=== PATIENT | male | born 1950 | race Caucasian/White ===

== ENCOUNTER 2020-01-21 14:21 | Emergency (ER) | payer MEDICARE ==
--- NOTE | 2020-01-21 14:28 | ERPHSYRPT ---
- History of Present Illness Time Seen by Provider: 01/21/20 14:28 Source: patient, family Exam Limitations: no limitations Physician History: This is a 69-year-old white male who presents with left lower rib pain and left upper quadrant abdominal pain after a fall that occurred 3 days ago. Patient's pain is worse than it was 3 days ago. He denies head or neck injury. There is no other pain sites. Patient denies chest pain and denies shortness of breath. Timing/Duration: day(s) (3) Severity: moderate Modifying Factors: Improves With: movement, other (Deep breath) Associated Symptoms: denies symptoms Allergies/Adverse Reactions: No Known Drug Allergies Allergy (Verified 01/21/20 14:38) Home Medications: Levothyroxine Sodium 100 Mcg [Synthroid 100 Mcg] 100 mcg PO DAILY 01/21/20 [History] Loratadine 10 mg PO DAILY 01/21/20 [History] Travel Risk - International Travel Have you traveled outside of the country in past 3 weeks: No - Coronavirus Screening Are you exhibiting any of the following symptoms?: No Close contact with a COVID-19 positive Pt in past 14-21 Days: No - Review of Systems Constitutional: No Symptoms Eyes: No Symptoms Ears, Nose, & Throat: No Symptoms Respiratory: No Symptoms Cardiac: No Symptoms Abdominal/Gastrointestinal: Abdominal Pain (Left upper quadrant) Genitourinary Symptoms: No Symptoms Musculoskeletal: Fall, Other (Left lower ribs) Skin: No Symptoms Neurological: No Symptoms Psychological: No Symptoms Endocrine: No Symptoms Hematologic/Lymphatic: No Symptoms Immunological/Allergic: No Symptoms All Other Systems: Reviewed and Negative - Past Medical History Pertinent Past Medical History: Yes Neurological History: No Pertinent History ENT History: No Pertinent History Cardiac History: No Pertinent History Respiratory History: No Pertinent History Endocrine Medical History: No Pertinent History, Hypothyroidism GI Medical History: No Pertinent History History: No Pertinent History Psycho-Social History: No Pertinent History Male Reproductive Disorders: No Pertinent History - Past Surgical History Past Surgical History: Yes Neuro Surgical History: No Pertinent History Cardiac: No Pertinent History Respiratory: No Pertinent History Gastrointestinal: No Pertinent History Genitourinary: No Pertinent History Musculoskeletal: No Pertinent History Male Surgical History: No Pertinent History - Nursing Vital Signs Nursing Vital Signs: Initial Vital Signs Temperature 98.4 F 01/21/20 14:28 Pulse Rate 85 01/21/20 14:28 Blood Pressure 109/76 01/21/20 14:28 O2 Sat by Pulse Oximetry 93 L 01/21/20 14:28 Pain Scale Pain Intensity 0 - Physical Exam General Appearance: moderate distress, alert, anxiety Eye Exam: PERRL/EOMI, eyes nml inspection Ears, Nose, Throat Exam: normal ENT inspection, moist mucous membranes Neck Exam: normal inspection, non-tender, supple, full range of motion Respiratory Exam: normal breath sounds, lungs clear, airway intact, other (Left lateral lower ribs that are painful), No respiratory distress Cardiovascular Exam: regular rate/rhythm, normal heart sounds, normal peripheral pulses Gastrointestinal/Abdomen Exam: soft, normal bowel sounds, tenderness (Mild left upper quadrant), guarding, No rebound Rectal Exam: not done Back Exam: normal inspection, normal range of motion, No CVA tenderness, No vertebral tenderness Extremity Exam: normal inspection, normal range of motion, pelvis stable Neurologic Exam: alert, oriented x 3, cooperative, 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, normal mood/affect, nml cerebellar function, nml station & gait, sensation nml Skin Exam: normal color, warm, dry Lymphatic Exam: No adenopathy SpO2 Interpretation: normal O2 Delivery: Room Air - Course Nursing assessment & vital signs reviewed: Yes Ordered Tests: Active Orders 24 hr Category Date Time Status ABDOMEN AND PELVIS W/0 CONTRAS [CT] Stat Exams 01/21/20 14:47 Completed RIBS UNILATERAL Stat Exams 01/21/20 14:48 Completed Medication Summary Discontinued Medications Generic Name Dose Route Start Last Admin Trade Name Diallo PRN Reason Stop Dose Admin Hydromorphone HCl 1 mg 01/21/20 14:49 01/21/20 14:53 Hydromorphone 1 Mg/Ml Ampule IM 01/21/20 14:50 1 mg STAT ONE Administration Hydromorphone HCl Confirm 01/21/20 14:52 Hydromorphone 1 Mg/Ml Ampule Administered 01/21/20 14:53 Dose 1 mg .ROUTE .STK-MED ONE Ondansetron HCl 4 mg 01/21/20 14:49 01/21/20 14:54 Zofran Odt 4 Mg PO 01/21/20 14:50 4 mg STAT ONE Administration Ondansetron HCl Confirm 01/21/20 14:52 Zofran Odt 4 Mg Administered 01/21/20 14:53 Dose 4 mg .ROUTE .STK-MED ONE - Progress Progress: improved Progress Note: 01/21/20 16:03 Rib x-rays on the left reveals a left nondisplaced posterior lateral ninth rib fracture. CAT scan of the abdomen and pelvis reveals no splenic injury. There is a right pelvis 9 cm cystic mass present. This was discussed with the patient and spouse. They will follow-up with their primary care physician for management and further delineation of this pelvic mass Counseled pt/family regarding: diagnosis, need for follow-up, rad results - Departure Departure Disposition: Home Clinical Impression: Left rib fracture Condition: Stable Critical Care Time: No Referrals: RUBY GUTIERRES NP [Primary Care Provider] - Additional Instructions: If not allergic and there are no contraindications, add ibuprofen 600 mg orally with food 3 times a day for the next 5 days. Call your primary care doctor tomorrow to make arrangements for a follow-up appointment to discuss the findings on CAT scan that we reviewed regarding your right sided pelvic 9 cm cystic mass. Prescriptions: Oxycodone HCl/Acetaminophen [Percocet 5-325 mg Tablet] 1 each PO Q6H PRN PRN #12 tablet MDD 4 PRN Reason: Pain Cyclobenzaprine HCl 10 mg [Cyclobenzaprine 10 MG] 10 mg PO TID #10 tablet
[2020-01-21] MEDS ORDERED: Hydromorphone 1 mg/ml Ampule IM ONE (14:49)
[2020-01-21] MEDS ORDERED: ZOFRAN ODT 4 MG PO ONE (14:49)
[2020-01-21] MEDS ORDERED: Hydromorphone 1 mg/ml Ampule ONE (14:52)
[2020-01-21] MEDS ORDERED: ZOFRAN ODT 4 MG ONE (14:52)
--- NOTE | 2020-01-21 15:45 | XRAY ---
Indication: Left upper quadrant pain following fall 3 days ago. Multiple contiguous axial images obtained through the abdomen and pelvis without contrast as ordered. Comparison: None Lung bases demonstrates mild bibasilar dependent atelectasis and bibasilar calcified granulomas. Incompletely visualized 4 mm lingula subpleural noncalcified nodule probably granulomatous. No infiltrate or effusion. Heart is not enlarged. Small subcarinal and left infrahilar calcified nodes. Stomach is distended with food/fluid. Noncontrasted stomach and bowel loops appear nonobstructed. Enlarged prostate which chunky calcifications impresses on the base of the bladder. Urinary bladder is markedly distended with moderate circumferential wall thickening possible chronic urinary bladder hypertrophy versus cystitis. Right pelvis demonstrates a 9 cm simple appearing cystic mass immediately posterior lateral to the urinary bladder, possible bladder diverticulum. No free fluid/air. 1.3 cm right upper pole renal cyst, 1 cm left mid renal cyst, and a few tiny calcified hepatic/splenic granulomas. Remaining liver, pancreas, spleen, adrenal glands, kidneys, and ureters appear unremarkable for noncontrast exam. Minimal aortoiliac calcifications without AAA. Osseous structures intact. Small fatty umbilical hernia. Impression: 1. Abnormally distended urinary bladder with circumferential wall thickening. Rule out chronic urinary bladder hypertrophy due to outlet obstruction versus cystitis. 2. Right pelvis 9 cm cystic mass, possible large urinary bladder diverticulum. Contrasted CT exam could confirm. 3. Incompletely visualized lingula noncalcified micronodule. Finding probably granulomatous as there is evidence for old granulomas disease elsewhere. 4. Incidental bilateral renal cysts, enlarged prostate gland, and small fatty umbilical hernia.
--- NOTE | 2020-01-21 15:50 | XRAY ---
Indication: Pain following fall 3 days ago. Comparison: None 2 view left ribs demonstrates nondisplaced posterior lateral 9 rib fracture. Elsewhere mild osteopenia, mild levoscoliosis centered at T2, a few left lung calcified granulomas, and minimal left base subsegmental atelectasis. No other bony, articular, or soft tissue abnormalities.
[2020-01-21 16:13] VITALS: BP 108/63; PULSE 71; O2SAT 94
== END 2020-01-21 16:23 | disposition home or self-care (01) ==
LOC: ED 14:21
DX: S22.32XA Fracture of one rib, left side, initial encounter for closed fracture (principal); W19.XXXS Unspecified fall, sequela
CPT/HCPCS: 71100; 74176; 96372; 99284; J1170; Q0162

== ENCOUNTER 2020-02-16 12:33 | Emergency (ER) | payer MEDICARE ==
--- NOTE | 2020-02-16 12:38 | ERPHSYRPT ---
- History of Present Illness Time Seen by Provider: 02/16/20 12:37 Historian: patient, family Exam Limitations: no limitations Physician History: This is a 69-year-old male whose had a 3-day history of lower abdominal cramping without radiation and diarrhea. The last 24 to 36 hours he has had additionally vomiting on several occasions. Patient and spouse are concerned he may be dehydrated. He is becoming more weak. Patient denies chest pain he denies shortness of breath. He does not have muscle aches and pains. He has no cough. He has no chest pain. Timing/Duration: day(s) (3) Activities at Onset: none Quality: cramping Abdominal Pain Onset Location: RLQ, LLQ Pain Radiation: no radiation Severity of Pain-Max: mild Severity of Pain-Current: mild Modifying Factors: Improves With: vomiting Associated Symptoms: diaphoresis, diarrhea, loss of appetite, nausea, vomiting, weakness, No chest pain, No fever/chills, No shortness of breath Previous symptoms: no prior history Allergies/Adverse Reactions: No Known Drug Allergies Allergy (Verified 02/16/20 12:50) Home Medications: Levothyroxine Sodium 100 Mcg [Synthroid 100 Mcg] 100 mcg PO DAILY 01/21/20 [History] Loratadine 10 mg PO DAILY 01/21/20 [History] Travel Risk - International Travel Have you traveled outside of the country in past 3 weeks: No - Coronavirus Screening Are you exhibiting any of the following symptoms?: No Close contact with a COVID-19 positive Pt in past 14-21 Days: No - Review of Systems Constitutional: Weakness Eyes: No Symptoms Ears, Nose, & Throat: No Symptoms Respiratory: No Symptoms Cardiac: No Symptoms Abdominal/Gastrointestinal: Abdominal Pain, Nausea, Vomiting, Diarrhea Genitourinary Symptoms: No Symptoms Musculoskeletal: No Symptoms Skin: No Symptoms Neurological: No Symptoms Psychological: No Symptoms Endocrine: No Symptoms Hematologic/Lymphatic: No Symptoms Immunological/Allergic: No Symptoms All Other Systems: Reviewed and Negative - Past Medical History Pertinent Past Medical History: Yes Neurological History: No Pertinent History ENT History: No Pertinent History Cardiac History: No Pertinent History Respiratory History: No Pertinent History Endocrine Medical History: No Pertinent History, Hypothyroidism GI Medical History: No Pertinent History History: No Pertinent History Psycho-Social History: No Pertinent History Male Reproductive Disorders: No Pertinent History - Past Surgical History Past Surgical History: Yes Neuro Surgical History: No Pertinent History Cardiac: No Pertinent History Respiratory: No Pertinent History Gastrointestinal: No Pertinent History Genitourinary: No Pertinent History Musculoskeletal: No Pertinent History Male Surgical History: No Pertinent History - Social History Smoking Status: Former smoker Exposure to second hand smoke: No Drug Use: none Patient Lives Alone: No - Nursing Vital Signs Nursing Vital Signs: Initial Vital Signs Temperature 98.0 F 02/16/20 12:41 Pulse Rate 107 H 02/16/20 12:41 Respiratory Rate 22 02/16/20 12:41 Blood Pressure 110/68 02/16/20 12:41 O2 Sat by Pulse Oximetry 95 02/16/20 12:41 Pain Scale Pain Intensity 0 - Physical Exam General Appearance: mild distress, alert, anxiety, thin Eye Exam: PERRL/EOMI, eyes nml inspection Ears, Nose, Throat Exam: normal ENT inspection, dry mucous membranes Neck Exam: normal inspection, non-tender, supple, full range of motion Respiratory Exam: normal breath sounds, lungs clear, airway intact, No chest tenderness, No respiratory distress Cardiovascular Exam: regular rate/rhythm, normal heart sounds, normal peripheral pulses Gastrointestinal/Abdomen Exam: soft, normal bowel sounds, tenderness (Mild bilateral lower quadrants), No guarding, No rebound Rectal Exam: not done Back Exam: normal inspection, normal range of motion, No CVA tenderness, No vertebral tenderness Extremity Exam: normal inspection, normal range of motion, pelvis stable Neurologic Exam: alert, oriented x 3, cooperative, 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, normal mood/affect, nml cerebellar function, nml station & gait, sensation nml Skin Exam: normal color, warm, dry Lymphatic Exam: No adenopathy SpO2 Interpretation: normal O2 Delivery: Room Air - Course Nursing assessment & vital signs reviewed: Yes EKG Interpreted by Me: RATE (96), Sinus Rhythm, NORMAL AXIS, NORMAL INTERVALS, NORMAL QRS Ordered Tests: Active Orders 24 hr Category Date Time Status IV Insertion STAT Care 02/16/20 13:09 Active ABDOMEN AND PELVIS W/0 CONTRAS [CT] Stat Exams 02/16/20 13:22 Taken AMYLASE Stat Lab 02/16/20 13:30 Completed BLOOD CULTURE Stat Lab 02/16/20 14:00 Received CBC W DIFF Stat Lab 02/16/20 13:30 Completed CMP Stat Lab 02/16/20 13:30 Completed LIPASE Stat Lab 02/16/20 13:30 Completed Lactic Acid Stat Lab 02/16/20 13:09 Completed UA W/RFX UR CULTURE Stat Lab 02/16/20 13:55 Completed Medication Summary Generic Name Dose Route Start Last Admin Trade Name Diallo PRN Reason Stop Dose Admin Sodium Chloride 500 mls @ 500 mls/hr 02/16/20 14:54 02/16/20 15:09 Sodium Chloride 0.9% 500 Ml IV 02/16/20 15:53 500 mls/hr .Q1H ONE Administration Discontinued Medications Generic Name Dose Route Start Last Admin Trade Name Diallo PRN Reason Stop Dose Admin Sodium Chloride 1,000 mls @ 999 mls/hr 02/16/20 13:09 02/16/20 13:42 Sodium Chloride 0.9% 1000 Ml IV 02/16/20 14:09 999 mls/hr .Q1H1M STA Administration Sodium Chloride Confirm 02/16/20 13:39 Sodium Chloride 0.9% 1000 Ml Administered 02/16/20 13:40 Dose 1,000 mls @ ud .ROUTE .STK-MED ONE Sodium Chloride Confirm 02/16/20 15:06 Sodium Chloride 0.9% 1000 Ml Administered 02/16/20 15:07 Dose 1,000 mls @ ud .ROUTE .STK-MED ONE Sodium Chloride Confirm 02/16/20 15:09 Sodium Chloride 0.9% 500 Ml Administered 02/16/20 15:10 Dose 500 mls @ ud IV .STK-MED ONE Lab/Rad Data: Laboratory Result Diagrams 02/16/20 13:30 02/16/20 13:30 Laboratory Results 02/16/20 02/16/20 02/16/20 Range/Units 14:00 13:55 13:30 WBC (4.0-10.5) K/mm3 RBC (4.1-5.6) M/mm3 Hgb (12.5-18.0) gm/dl Hct (42-50) % MCV (78-100) fl MCH (26-32) pg MCHC (32-36) g/dl RDW (11.5-14.0) % Plt Count (150-450) K/mm3 MPV (7.5-11.0) fl Gran % (36.0-66.0) % Eos # (Auto) (0-0.5) Absolute Lymphs (auto) (1.0-4.6) Absolute Monos (auto) (0.0-1.3) Lymphocytes % (24.0-44.0) % Monocytes % (0.0-12.0) % Eosinophils % (0.00-5.0) % Basophils % (0.0-0.4) % Absolute Granulocytes (1.4-6.9) Basophils # (0-0.4) Sodium 136 L (137-145) mmol/L Potassium 4.1 (3.5-5.1) mmol/L Chloride 109 H (98-107) mmol/L Carbon Dioxide 18 L (22-30) mmol/L Anion Gap 13.1 (5-15) MEQ/L BUN 29 H (9-20) mg/dL Creatinine 1.57 H (0.66-1.25) mg/dL Estimated GFR 46.8 ML/MIN Glucose 113 H (74-106) mg/dL Lactic Acid (0.4-2.0) Calcium 9.6 (8.4-10.2) mg/dL Total Bilirubin 1.20 (0.2-1.3) mg/dL AST 23 (17-59) U/L ALT 15 (0-50) U/L Alkaline Phosphatase 119 (38-126) U/L Serum Total Protein 9.3 H (6.3-8.2) g/dL Albumin 3.5 (3.5-5.0) g/dL Amylase 72 (30-110) U/L Lipase 56 (23-300) U/L Urine Color YELLOW (YELLOW) Urine Appearance CLEAR (CLEAR) Urine pH 5.0 (5-6) Ur Specific [place] 1.015 (1.005-1.025) Urine Protein NEGATIVE (Negative) Urine Ketones TRACE (NEGATIVE) Urine Blood NEGATIVE (0-5) Solo/ul Urine Nitrite NEGATIVE (NEGATIVE) Urine Bilirubin NEGATIVE (NEGATIVE) Urine Urobilinogen NEGATIVE (0-1) mg/dL Ur Leukocyte Esterase NEGATIVE (NEGATIVE) Urine WBC (Auto) 6-10 (0-5) /HPF Urine RBC (Auto) NONE (0-2) /HPF U Hyaline Cast (Auto) 6-10 (0-2) /LPF U Epithel Cells (Auto) NONE (FEW) /HPF Urine Bacteria (Auto) NONE (NEGATIVE) /HPF Urine Mucus (Auto) SLIGHT (NEGATIVE) /HPF Urine Culture Reflexed NO (NO) Urine Glucose NEGATIVE (NEGATIVE) mg/dL Influenza Type A Ag NEGATIVE (NEGATIVE) Influenza Type B Ag NEGATIVE (NEGATIVE) RSV (PCR) NEGATIVE (Negative) 02/16/20 02/16/20 Range/Units 13:30 13:09 WBC 5.2 (4.0-10.5) K/mm3 RBC 5.04 (4.1-5.6) M/mm3 Hgb 14.7 (12.5-18.0) gm/dl Hct 45.3 (42-50) % MCV 89.9 (78-100) fl MCH 29.2 (26-32) pg MCHC 32.5 (32-36) g/dl RDW 14.9 H (11.5-14.0) % Plt Count 265 (150-450) K/mm3 MPV 10.0 (7.5-11.0) fl Gran % 75.3 H (36.0-66.0) % Eos # (Auto) 0.03 (0-0.5) Absolute Lymphs (auto) 0.67 L (1.0-4.6) Absolute Monos (auto) 0.56 (0.0-1.3) Lymphocytes % 13.0 L (24.0-44.0) % Monocytes % 10.9 (0.0-12.0) % Eosinophils % 0.6 (0.00-5.0) % Basophils % 0.2 (0.0-0.4) % Absolute Granulocytes 3.88 (1.4-6.9) Basophils # 0.01 (0-0.4) Sodium (137-145) mmol/L Potassium (3.5-5.1) mmol/L Chloride (98-107) mmol/L Carbon Dioxide (22-30) mmol/L Anion Gap (5-15) MEQ/L BUN (9-20) mg/dL Creatinine (0.66-1.25) mg/dL Estimated GFR ML/MIN Glucose (74-106) mg/dL Lactic Acid 1.4 (0.4-2.0) Calcium (8.4-10.2) mg/dL Total Bilirubin (0.2-1.3) mg/dL AST (17-59) U/L ALT (0-50) U/L Alkaline Phosphatase (38-126) U/L Serum Total Protein (6.3-8.2) g/dL Albumin (3.5-5.0) g/dL Amylase (30-110) U/L Lipase (23-300) U/L Urine Color (YELLOW) Urine Appearance (CLEAR) Urine pH (5-6) Ur Specific [place] (1.005-1.025) Urine Protein (Negative) Urine Ketones (NEGATIVE) Urine Blood (0-5) Solo/ul Urine Nitrite (NEGATIVE) Urine Bilirubin (NEGATIVE) Urine Urobilinogen (0-1) mg/dL Ur Leukocyte Esterase (NEGATIVE) Urine WBC (Auto) (0-5) /HPF Urine RBC (Auto) (0-2) /HPF U Hyaline Cast (Auto) (0-2) /LPF U Epithel Cells (Auto) (FEW) /HPF Urine Bacteria (Auto) (NEGATIVE) /HPF Urine Mucus (Auto) (NEGATIVE) /HPF Urine Culture Reflexed (NO) Urine Glucose (NEGATIVE) mg/dL Influenza Type A Ag (NEGATIVE) Influenza Type B Ag (NEGATIVE) RSV (PCR) (Negative) - Progress Progress: improved Progress Note: 02/16/20 14:39 CAT scan of the abdomen and pelvis shows an enlarged prostate greater than or equal to 5 cm. There is a large 9.2 cm right posterior urinary bladder d iverticulum. This was discussed with the patient and his spouse and they will be following up with their primary care doctor and a urologist. 02/16/20 15:20 Patient states he is feeling much better. I reviewed the report of the CAT scan with the patient and the spouse. The patient has a scheduled appointment with the urologist within the next 2 weeks 02/16/20 15:22 Counseled pt/family regarding: lab results, diagnosis, need for follow-up, rad results - Departure Departure Disposition: Home Clinical Impression: Vomiting and diarrhea, Enlarged prostate, [place] diverticulum of urinary bladder Condition: Stable Critical Care Time: No Referrals: RUBY GUTIERRES NP [Primary Care Provider] - Additional Instructions: Drink plenty of clear liquids. Keep your appointment with your urologist in 2 weeks. Follow-up with your primary care for persistent symptoms. Return to the emergency department if your symptoms worsen
[2020-02-16] MEDS ORDERED: Sodium Chloride 0.9% 1000 ML 1,000 ML IV STA (13:09)
[2020-02-16] MEDS ORDERED: Sodium Chloride 0.9% 1000 ML 0 ML ONE (13:39)
[2020-02-16 13:50] LABS: Absolute Neutrophil Ct (ANC) 3.88 (1.4-6.9); BASOPHIL % 0.2 % (0.0-0.4); Basophil (Absolute #) 0.01 (0-0.4); Eosinophil % 0.6 % (0.00-5.0); Eosinophil (Absolute #) 0.03 (0-0.5); Hematocrit 45.3 % (42-50); Hemoglobin 14.7 gm/dl (12.5-18.0); Lymphocyte (Absolute #) 0.67 (1.0-4.6); Mean Cell Volume 89.9 fl (78-100); Mean Corpuscular Hemoglobin 29.2 pg (26-32); Mean Corpuscular Hgb Concent. 32.5 g/dl (32-36); Monocyte (Absolute #) 0.56 (0.0-1.3); Monocytes % 10.9 % (0.0-12.0); Neutrophil % 75.3 % (36.0-66.0); Platelet Count 265 K/mm3 (150-450); Red Blood Count 5.04 M/mm3 (4.1-5.6); Red Cell Distribution Width 14.9 % (11.5-14.0); White Blood Count 5.2 K/mm3 (4.0-10.5)
[2020-02-16 14:02] LABS: ALBUMIN 3.5 g/dL (3.5-5.0); ANION GAP 13.1 MEQ/L (5-15); BILIRUBIN,TOTAL 1.2 mg/dL (0.2-1.3); Calcium 9.6 mg/dL (8.4-10.2); Creatinine 1 1.57 mg/dL (0.66-1.25); Potassium 4.1 mmol/L (3.5-5.1); Total Protein 9.3 g/dL (6.3-8.2)
[2020-02-16 14:21] LABS: Appearance CLEAR (CLEAR); Bilirubin NEGATIVE (NEGATIVE); Blood NEGATIVE Ery/ul (0-5); Glucose NEGATIVE (NEGATIVE); Ketones TRACE (NEGATIVE); Leukocyte Esterase NEGATIVE (NEGATIVE); Mucus SLIGHT /HPF (NEGATIVE); Nitrite NEGATIVE (NEGATIVE); Protein,Urine Dip NEGATIVE (Negative); Specific Gravity 1.015 (1.005-1.025); Urobilinogen NEGATIVE mg/dL (0-1)
[2020-02-16 14:33] LABS: INFLUENZA A NEGATIVE (NEGATIVE); INFLUENZA B NEGATIVE (NEGATIVE); RESPIRATORY SYNCTIAL VIRUS NEGATIVE (Negative)
[2020-02-16] MEDS ORDERED: Sodium Chloride 0.9% 500 ML 500 ML IV ONE ×2 (14:54→15:09)
[2020-02-16] MEDS ORDERED: Sodium Chloride 0.9% 1000 ML 1,000 ML ONE (15:06)
[2020-02-16 15:12] VITALS: BP 117/73; PULSE 89; O2SAT 94
--- NOTE | 2020-02-16 22:08 | XRAY ---
Indication: Diarrhea. Multiple contiguous axial images obtained through the abdomen and pelvis without contrast as ordered. Comparison: January 21, 2020. Lung bases again demonstrates bibasilar dependent atelectasis with new tiny bibasilar effusions. Heart is not enlarged. Noncontrasted stomach and bowel loops remaining nonobstructed. Mild scattered colonic diverticulosis without diverticulitis. No free fluid/air. Urinary bladder remains markedly distended with circumferential wall thickening again chronic urinary bladder hypertrophy versus cystitis. Stable 9 cm right urinary bladder diverticulum, bilateral renal cysts, hepatic/splenic calcified granulomas, and enlarged prostate gland. Remaining liver, gallbladder, pancreas, spleen, adrenal glands, kidneys, and ureters appear unremarkable for noncontrasted exam. Stable minimal aortoiliac calcifications without AAA. Impression: 1. Colonic diverticulosis without diverticulitis. 2. Continued abnormally distended urinary bladder with circumferential wall thickening. Again rule out chronic urinary bladder hypertrophy due to outlet obstruction versus cystitis. Stable urinary bladder diverticulum. 3. Stable bilateral renal cysts, enlarged prostate gland, and old granulomatous disease. 4. New tiny bibasilar effusions without cardiomegaly. Comment: Preliminary interpretation was made by [facility]. No critical discrepancy.
== END 2020-02-16 15:54 | disposition home or self-care (01) ==
LOC: ED 12:33
DX: R19.7 Diarrhea, unspecified (principal); N40.0 Benign prostatic hyperplasia without lower urinary tract symptoms; N32.3 Diverticulum of bladder
CPT/HCPCS: 36000; 36415; 74176; 80053; 81001; 82150; 83605; 83690; 85025; 87040; 87631; 96360; 96361; 99284

== ENCOUNTER 2021-01-10 15:33 | Emergency (ER) | payer MEDICARE ==
[2021-01-10] MEDS ORDERED: CARDIZEM DRIP 100 MG/100 ML D5W 100 ML IV PRN (15:57)
[2021-01-10] MEDS ORDERED: Adenocard IV 6 MG/2 ML IV ONE ×2 (15:57→16:03)
[2021-01-10] MEDS ORDERED: BABY ASPIRIN 81 MG CHEW PO ONE (15:57)
[2021-01-10] MEDS ORDERED: Cardizem IV 50 MG/10 ML IV ONE ×2 (15:57→16:17)
--- NOTE | 2021-01-10 15:57 | ERPHSYRPT ---
- History of Present Illness Time Seen by Provider: 01/10/21 15:53 Source: patient, family Exam Limitations: no limitations Patient Subjective Stated Complaint: vomiting since last night Triage Nursing Assessment: Pt brought to the ER by his , tachycardic, hypotensive, afib, tachypnea, N&V, no hx of heart problems, denies pain, irregular pulses, skin n/w/d Physician History: pt has been having vomiting , and is found to have rapid rate on EKG 150s with BP in 70s to 90s. No CP , No Abd pain. abd nontender chest clear Timing/Duration: today Activities at Onset: none Chest Pain Radiation: no radiation Severity of Pain-Max: none Severity of Pain-Current: none Modifying Factors: Improves With: nothing Nitro Today/Relief: no nitro taken today Aspirin Treatment Today: 81 mg x 4, provided by ED Associated Symptoms: vomiting Prior Chest Pain/Cardiac Workup: no prior chest pain Allergies/Adverse Reactions: No Known Drug Allergies Allergy (Verified 01/10/21 15:50) Home Medications: Levothyroxine Sodium 100 Mcg [Synthroid 100 Mcg] 50 mcg PO DAILY 01/21/20 [History] Loratadine 10 mg PO DAILY 01/21/20 [History] Calcium Carbonate/Vitamin D3 [Calcium 600-Vit D3 400 Tablet] 1 tab PO DAILY 01/10/21 [History] Ibandronate Sodium [Boniva] 150 mg PO UD 01/10/21 [History] Hx Tetanus, Diphtheria Vaccination/Date Given: Yes Hx Influenza Vaccination/Date Given: Yes Hx Pneumococcal Vaccination/Date Given: No Travel Risk - International Travel Have you traveled outside of the country in past 3 weeks: No - Coronavirus Screening Are you exhibiting any of the following symptoms?: No Close contact with a COVID-19 positive Pt in past 14-21 Days: No - Vaccine Status Have you recieved a Covid-19 vaccination: No - Review of Systems Constitutional: No Fever, No Chills Eyes: No Symptoms Ears, Nose, & Throat: No Symptoms Respiratory: No Cough, No Dyspnea Cardiac: No Chest Pain, No Edema, No Syncope Abdominal/Gastrointestinal: No Abdominal Pain, No Nausea, No Vomiting, No Diarrhea Genitourinary Symptoms: No Dysuria Musculoskeletal: No Back Pain, No Neck Pain Skin: No Rash Neurological: No Dizziness, No Focal Weakness, No Sensory Changes Psychological: No Symptoms Endocrine: No Symptoms Hematologic/Lymphatic: No Symptoms Immunological/Allergic: No Symptoms All Other Systems: Reviewed and Negative - Past Medical History Pertinent Past Medical History: Yes Neurological History: No Pertinent History ENT History: No Pertinent History Cardiac History: No Pertinent History Respiratory History: No Pertinent History Endocrine Medical History: No Pertinent History, Hypothyroidism GI Medical History: No Pertinent History History: No Pertinent History Psycho-Social History: No Pertinent History Male Reproductive Disorders: No Pertinent History Other Medical History: seasonal allergies - Past Surgical History Past Surgical History: Yes Neuro Surgical History: No Pertinent History Cardiac: No Pertinent History Respiratory: No Pertinent History Gastrointestinal: No Pertinent History Genitourinary: No Pertinent History Musculoskeletal: No Pertinent History Male Surgical History: No Pertinent History Other Surgical History: hernia x 3, hemorriods - Social History Smoking Status: Former smoker Exposure to second hand smoke: No Drug Use: none Patient Lives Alone: No - Nursing Vital Signs Nursing Vital Signs: Initial Vital Signs Temperature 97.5 F 01/10/21 15:38 Pulse Rate 146 H 01/10/21 15:38 Respiratory Rate 30 H 01/10/21 15:38 Blood Pressure 102/72 01/10/21 15:38 O2 Sat by Pulse Oximetry 94 L 01/10/21 15:38 Pain Scale Pain Intensity 3 - Physical Exam General Appearance: no apparent distress, alert Eye Exam: PERRL/EOMI, eyes nml inspection Ears, Nose, Throat Exam: normal ENT inspection, moist mucous membranes Neck Exam: normal inspection, non-tender, supple Respiratory Exam: normal breath sounds, lungs clear, No respiratory distress Cardiovascular Exam: normal heart sounds, tachycardia, No edema Gastrointestinal/Abdomen Exam: soft, No tenderness, No mass Back Exam: normal inspection, No CVA tenderness, No vertebral tenderness Extremity Exam: normal inspection, normal range of motion Neurologic Exam: alert, oriented x 3, cooperative, normal mood/affect, nml cerebellar function, sensation nml, No motor deficits Skin Exam: normal color, warm, dry Lymphatic Exam: No adenopathy SpO2: 94 - Course Nursing assessment & vital signs reviewed: Yes EKG Interpreted by Me: SVT, Non-specific ST Changes - Radiology Exams Chest X-ray Interpretation: Reviewed by me, Other (mild congestion and atelectasis L) Ordered Tests: Active Orders 24 hr Category Date Time Status Hospital Superintendent STAT Care 01/10/21 15:58 Active EKG-ER Only STAT Care 01/10/21 15:57 Active IV Insertion STAT Care 01/10/21 15:57 Active Pulse Oximetry (ED) STAT Care 01/10/21 15:57 Active CHEST 1 VIEW (PORTABLE) Stat Exams 01/10/21 15:58 Completed CBC W DIFF Stat Lab 01/10/21 16:00 Completed CMP Stat Lab 01/10/21 16:00 Completed D-DIMER QUANTITATIVE Stat Lab 01/10/21 16:15 Completed Lactic Acid Stat Lab 01/10/21 15:57 Completed NT PRO BNP Stat Lab 01/10/21 16:00 Completed T4 (Thyroxine) Stat Lab 01/10/21 16:00 Completed TROPONIN Q3H Lab 01/10/21 16:00 Completed TROPONIN Q3H Lab 01/10/21 19:00 Received TROPONIN Q3H Lab 01/10/21 22:00 Ordered TROPONIN Q3H Lab 01/11/21 01:00 Ordered TROPONIN Q3H Lab 01/11/21 04:00 Ordered TSH, 3RD Generation Stat Lab 01/10/21 16:00 Completed Medication Summary Generic Name Dose Route Start Last Admin Trade Name Freq PRN Reason Stop Dose Admin Sodium Chloride 1,000 mls @ 100 mls/hr 01/10/21 16:00 01/10/21 16:45 Sodium Chloride 0.9% 1000 Ml IV 02/09/21 15:59 100 mls/hr .Q10H GINA Administration Diltiazem HCl 100 mls @ 5 mls/hr 01/10/21 15:57 01/10/21 16:09 Cardizem Drip 100 Mg/100 Ml D5w IV 02/09/21 15:56 5 mg/hr .Q20H PRN 5 mls/hr HEART RATE/ A-FIB Administration Protocol 5 MG/HR Discontinued Medications Generic Name Dose Route Start Last Admin Trade Name Freq PRN Reason Stop Dose Admin Adenosine 6 mg 01/10/21 15:57 01/10/21 16:04 Adenocard Iv 6 Mg/2 Ml IV 01/10/21 15:58 6 mg STAT ONE Administration Adenosine Confirm 01/10/21 16:03 Adenocard Iv 6 Mg/2 Ml Administered 01/10/21 16:04 Dose 6 mg IV .STK-MED ONE Aspirin 324 mg 01/10/21 15:57 01/10/21 17:00 Baby Aspirin 81 Mg Chew PO 01/10/21 15:58 324 mg STAT ONE Administration Aspirin Confirm 01/10/21 16:17 Baby Aspirin 81 Mg Chew Administered 01/10/21 16:18 Dose 324 mg .ROUTE .STK-MED ONE Diltiazem HCl 10 mg 01/10/21 15:57 01/10/21 16:22 Cardizem Iv 50 Mg/10 Ml IV 01/10/21 15:58 50 mg STAT ONE Administration Diltiazem HCl Confirm 01/10/21 16:17 Cardizem Iv 50 Mg/10 Ml Administered 01/10/21 16:18 Dose 50 mg IV .STK-MED ONE Lab/Rad Data: Laboratory Result Diagrams 01/10/21 16:00 01/10/21 16:00 Laboratory Results 01/10/21 01/10/21 01/10/21 Range/Units 16:15 16:00 16:00 WBC (4.0-10.5) K/mm3 RBC (4.1-5.6) M/mm3 Hgb (12.5-18.0) gm/dl Hct (42-50) % MCV (78-100) fl MCH (26-32) pg MCHC (32-36) g/dl RDW (11.5-14.0) % Plt Count (150-450) K/mm3 MPV (7.5-11.0) fl Gran % (36.0-66.0) % Eos # (Auto) (0-0.5) Absolute Lymphs (auto) (1.0-4.6) Absolute Monos (auto) (0.0-1.3) Lymphocytes % (24.0-44.0) % Monocytes % (0.0-12.0) % Eosinophils % (0.00-5.0) % Basophils % (0.0-0.4) % Absolute Granulocytes (1.4-6.9) Basophils # (0-0.4) D-Dimer 395 (215-500) ng/mL Sodium 139 (137-145) mmol/L Potassium 4.2 (3.5-5.1) mmol/L Chloride 109 H (98-107) mmol/L Carbon Dioxide 18 L (22-30) mmol/L Anion Gap 16.0 H (5-15) MEQ/L BUN 30 H (9-20) mg/dL Creatinine 1.76 H (0.66-1.25) mg/dL Estimated GFR 40.9 ML/MIN Glucose 113 H (74-106) mg/dL Lactic Acid (0.4-2.0) Calcium 10.1 (8.4-10.2) mg/dL Total Bilirubin 0.50 (0.2-1.3) mg/dL AST 24 (17-59) U/L ALT 16 (0-50) U/L Alkaline Phosphatase 104 (38-126) U/L Troponin I 0.042 H* (0.000-0.034) ng/mL NT-Pro-B Natriuret Pep 3520 H (0-900) pg/mL Serum Total Protein 9.5 H (6.3-8.2) g/dL Albumin 3.7 (3.5-5.0) g/dL Thyroxine (T4) 7.74 (5.53-10.96) ug/dL TSH 3rd Generation 1.140 (0.47-4.68) mIU/L 01/10/21 01/10/21 Range/Units 16:00 15:57 WBC 7.4 (4.0-10.5) K/mm3 RBC 5.13 (4.1-5.6) M/mm3 Hgb 15.1 (12.5-18.0) gm/dl Hct 46.2 (42-50) % MCV 90.1 (78-100) fl MCH 29.4 (26-32) pg MCHC 32.7 (32-36) g/dl RDW 14.2 H (11.5-14.0) % Plt Count 289 (150-450) K/mm3 MPV 10.0 (7.5-11.0) fl Gran % 77.0 H (36.0-66.0) % Eos # (Auto) 0.07 (0-0.5) Absolute Lymphs (auto) 0.93 L (1.0-4.6) Absolute Monos (auto) 0.68 (0.0-1.3) Lymphocytes % 12.6 L (24.0-44.0) % Monocytes % 9.2 (0.0-12.0) % Eosinophils % 0.9 (0.00-5.0) % Basophils % 0.3 (0.0-0.4) % Absolute Granulocytes 5.70 (1.4-6.9) Basophils # 0.02 (0-0.4) D-Dimer (215-500) ng/mL Sodium (137-145) mmol/L Potassium (3.5-5.1) mmol/L Chloride (98-107) mmol/L Carbon Dioxide (22-30) mmol/L Anion Gap (5-15) MEQ/L BUN (9-20) mg/dL Creatinine (0.66-1.25) mg/dL Estimated GFR ML/MIN Glucose (74-106) mg/dL Lactic Acid 1.5 (0.4-2.0) Calcium (8.4-10.2) mg/dL Total Bilirubin (0.2-1.3) mg/dL AST (17-59) U/L ALT (0-50) U/L Alkaline Phosphatase (38-126) U/L Troponin I (0.000-0.034) ng/mL NT-Pro-B Natriuret Pep (0-900) pg/mL Serum Total Protein (6.3-8.2) g/dL Albumin (3.5-5.0) g/dL Thyroxine (T4) (5.53-10.96) ug/dL TSH 3rd Generation (0.47-4.68) mIU/L - Progress Progress: improved, re-examined Air Movement: good Progress Note: 01/10/21 16:25 pt responded briefly to adenosine and confirmed afib. ordered 10 mg cardizem , but nurse inadvert gave 50 - pt advised of medical error, and incident report created. However his rate is well controlled but still some hypotension to 70s as befor e, asympt and feels better - giving bolus NS for BP. 01/10/21 16:49 01/10/21 19:39 discussed with [facility] ER and family and all agree best to transfer to for furhter w/u of his new onset afib. and elevated trop Blood Culture(s) Obtained: No Antibiotics given: No Discussed with : Other ([facility] ER ) Will see patient in: ED Counseled pt/family regarding: lab results, diagnosis, need for follow-up, rad results - Departure Departure Disposition: Transfer Clinical Impression: afib Condition: Good Critical Care Time: Yes Critical Care Time(excluding separately billable procedures): Critical 30-74 mins (crit care for hypotension and rapid vent response to bring under control) Referrals: RUBY GUTIERRES, EMEKA [Primary Care Provider] -
[2021-01-10] MEDS ORDERED: Sodium Chloride 0.9% 1000 ML 1,000 ML IV SCH (16:00)
[2021-01-10] MEDS ORDERED: CARDIZEM DRIP 100 MG/100 ML D5W 100 ML IV ONE (16:09)
[2021-01-10 16:12] LABS: BASOPHIL % 0.3 % (0.0-0.4); Basophil (Absolute #) 0.02 (0-0.4); Eosinophil % 0.9 % (0.00-5.0); Eosinophil (Absolute #) 0.07 (0-0.5); Hematocrit 46.2 % (42-50); Hemoglobin 15.1 gm/dl (12.5-18.0); Lymphocyte (Absolute #) 0.93 (1.0-4.6); Lymphocytes % 12.6 % (24.0-44.0); Mean Cell Volume 90.1 fl (78-100); Mean Corpuscular Hemoglobin 29.4 pg (26-32); Mean Corpuscular Hgb Concent. 32.7 g/dl (32-36); Monocyte (Absolute #) 0.68 (0.0-1.3); Monocytes % 9.2 % (0.0-12.0); Platelet Count 289 K/mm3 (150-450); Red Blood Count 5.13 M/mm3 (4.1-5.6); Red Cell Distribution Width 14.2 % (11.5-14.0); White Blood Count 7.4 K/mm3 (4.0-10.5)
[2021-01-10] MEDS ORDERED: Sodium Chloride 0.9% 1000 ML 1,000 ML ONE (16:17)
[2021-01-10] MEDS ORDERED: BABY ASPIRIN 81 MG CHEW ONE (16:17)
[2021-01-10 17:00] LABS: ALBUMIN 3.7 g/dL (3.5-5.0); BILIRUBIN,TOTAL 0.5 mg/dL (0.2-1.3); Calcium 10.1 mg/dL (8.4-10.2); Creatinine 1 1.76 mg/dL (0.66-1.25); EST GLOMERULAR FILTRATION RATE 40.9 ML/MIN; Potassium 4.2 mmol/L (3.5-5.1); T4 (Thyroxine) 7.74 ug/dL (5.53-10.96); TSH, 3RD Generation 1.14 mIU/L (0.47-4.68); Total Protein 9.5 g/dL (6.3-8.2)
--- NOTE | 2021-01-10 19:32 | XRAY ---
Indication: Tachycardia. Comparison: None Portable chest demonstrates mild left base infiltrate versus atelectasis with tiny effusion partially obscured due to overlying monitoring leads. Incidental tiny left base calcified granuloma. Remaining heart, right lung, and bony thorax unremarkable.
[2021-01-10 19:43] VITALS: BP 98/67; PULSE 98; O2SAT 95
== END 2021-01-10 20:15 | disposition short-term general hospital (02) ==
LOC: ED 15:33
DX: I48.91 Unspecified atrial fibrillation (principal); R11.10 Vomiting, unspecified; I95.9 Hypotension, unspecified; Z79.899 Other long term (current) drug therapy; E03.9 Hypothyroidism, unspecified
CPT/HCPCS: 36000; 36415; 71045; 80053; 83605; 83880; 84436; 84443; 84484; 85025; 85379; 93005; 93041; 94760; 96365; 96366; 96374; 96375; 99285; 99291; J0153; A9270-GY

== ENCOUNTER 2021-11-15 07:39 | Emergency (ER) | payer MEDICARE ==
--- NOTE | 2021-11-15 08:12 | ERPHSYRPT ---
- History of Present Illness Time Seen by Provider: 11/15/21 07:55 Source: patient, family Exam Limitations: no limitations Patient Subjective Stated Complaint: intermittent vomiting, dizziness, diarrhea x 3 days. missed BP med thurs and fri due to being out. Triage Nursing Assessment: . Physician History: This is a 71-year-old white male has a history of hypertension hypothyroidism and presents with few day history of just feeling "puny" which is described as weakness. He has had a couple bouts of vomiting and diarrhea. He has not had a fever. He denies headache. He denies chest pain. He denies shortness of breath. He has no abdominal pain. There are no other individuals in the family with similar symptoms. Patient was out of his Cardizem medication for blood pressure and heart rate control. He had just filled it a few days ago. He has not taking his blood pressure and heart rate medication today. He is on Eliquis. He has a history of atrial fibrillation. Patient and spouse feel he may be dehydrated. Timing/Duration: day(s) Severity: mild Associated Symptoms: nausea, vomiting, weakness, No abdominal pain, No shortness of breath, No chest pain Allergies/Adverse Reactions: No Known Drug Allergies Allergy (Verified 11/15/21 07:58) Home Medications: Levothyroxine Sodium 100 Mcg [Synthroid 100 Mcg] 50 mcg PO DAILY 01/21/20 [History] Loratadine 10 mg PO DAILY 01/21/20 [History] Calcium Carbonate/Vitamin D3 [Calcium 600-Vit D3 400 Tablet] 1 tab PO DAILY 01/10/21 [History] Ibandronate Sodium [Boniva] 150 mg PO UD 01/10/21 [History] Apixaban [Eliquis 5 mg Tablet] 5 mg PO BID 11/15/21 [History] Benzonatate 100 mg PO TID PRN 11/15/21 [History] Diltiazem HCl [Cardizem Cd] 120 mg PO DAILY 11/15/21 [History] Levothyroxine Sodium [Euthyrox] 25 mcg PO DAILY 11/15/21 [History] Hx Tetanus, Diphtheria Vaccination/Date Given: Yes Hx Influenza Vaccination/Date Given: Yes Hx Pneumococcal Vaccination/Date Given: No Travel Risk - International Travel Have you traveled outside of the country in past 3 weeks: No - Coronavirus Screening Are you exhibiting any of the following symptoms?: No Symptoms: Vomiting/Diarrhea Close contact with a COVID-19 positive Pt in past 14-21 Days: No - Vaccine Status Have you recieved a Covid-19 vaccination: Yes 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[employer] - Vaccination Dates Date of 2cond Vaccination (if applicable): 04/10/2021 - Review of Systems Constitutional: Weakness Eyes: No Symptoms Ears, Nose, & Throat: No Symptoms Respiratory: No Symptoms Cardiac: No Symptoms Abdominal/Gastrointestinal: Nausea, Vomiting, Diarrhea, No Abdominal Pain, No Constipation Genitourinary Symptoms: No Symptoms Musculoskeletal: No Symptoms Skin: No Symptoms Neurological: No Symptoms Psychological: No Symptoms Endocrine: No Symptoms Hematologic/Lymphatic: No Symptoms Immunological/Allergic: No Symptoms All Other Systems: Reviewed and Negative - Past Medical History Pertinent Past Medical History: Yes Neurological History: No Pertinent History ENT History: No Pertinent History Cardiac History: Other Respiratory History: No Pertinent History Endocrine Medical History: No Pertinent History, Hypothyroidism GI Medical History: No Pertinent History History: No Pertinent History Psycho-Social History: No Pertinent History Male Reproductive Disorders: No Pertinent History Other Medical History: seasonal allergies, afib, HTN - Past Surgical History Past Surgical History: Yes Neuro Surgical History: No Pertinent History Cardiac: No Pertinent History Respiratory: No Pertinent History Gastrointestinal: No Pertinent History Genitourinary: No Pertinent History Musculoskeletal: No Pertinent History Male Surgical History: No Pertinent History Other Surgical History: hernia x 3, hemorriods - Social History Smoking Status: Former smoker Exposure to second hand smoke: No Drug Use: none Patient Lives Alone: No - Nursing Vital Signs Nursing Vital Signs: Initial Vital Signs Temperature 97.1 F 11/15/21 07:48 Pulse Rate 80 11/15/21 07:48 Respiratory Rate 18 11/15/21 07:48 Blood Pressure 153/85 11/15/21 07:48 O2 Sat by Pulse Oximetry 98 11/15/21 07:48 Pain Scale Pain Intensity 2 - Physical Exam General Appearance: no apparent distress, alert, anxiety Eye Exam: PERRL/EOMI, eyes nml inspection Ears, Nose, Throat Exam: pharynx normal, dry mucous membranes Neck Exam: normal inspection, non-tender, supple, full range of motion Respiratory Exam: normal breath sounds, lungs clear, airway intact, No chest tenderness, No respiratory distress Cardiovascular Exam: regular rate/rhythm, normal heart sounds, normal peripheral pulses Gastrointestinal/Abdomen Exam: soft, normal bowel sounds, No tenderness Rectal Exam: not done Back Exam: normal inspection, normal range of motion, No CVA tenderness, No vertebral tenderness Extremity Exam: normal inspection, normal range of motion, pelvis stable Neurologic Exam: alert, oriented x 3, cooperative, press helper II-XII nml as tested, normal mood/affect, nml cerebellar function, nml station & gait, sensation nml Skin Exam: normal color, warm, dry Lymphatic Exam: No adenopathy SpO2 Interpretation: normal SpO2: 98 O2 Delivery: Room Air - Course Nursing assessment & vital signs reviewed: Yes EKG Interpreted by Me: RATE (73), Sinus Rhythm, NORMAL AXIS, NORMAL INTERVALS, NORMAL QRS, NORMAL ST-T, Other (I do not appreciate any ST elevation or acute ischemia.) Ordered Tests: Active Orders 24 hr Category Date Time Status EKG-ER Only STAT Care 11/15/21 08:12 Active IV Insertion STAT Care 11/15/21 08:12 Active Pulse Oximetry (ED) STAT Care 11/15/21 08:12 Active CHEST 1 VIEW (PORTABLE) Stat Exams 11/15/21 08:13 Completed AMYLASE Stat Lab 11/15/21 08:30 Completed BMP Stat Lab 11/15/21 11:55 Completed CBC W DIFF Stat Lab 11/15/21 08:30 Completed CMP Stat Lab 11/15/21 08:30 Completed CULTURE,URINE Stat Lab 11/15/21 08:00 Received LIPASE Stat Lab 11/15/21 08:30 Completed Lactic Acid Stat Lab 11/15/21 08:30 Completed MAGNESIUM Stat Lab 11/15/21 08:30 Completed [place] Screen Stat Lab 11/15/21 08:30 Completed NT PRO BNP Stat Lab 11/15/21 08:30 Completed T4 (Thyroxine) Stat Lab 11/15/21 08:30 Completed TROPONIN Q3H Lab 11/15/21 08:30 Completed TROPONIN Q3H Lab 11/15/21 11:55 Received TROPONIN Q3H Lab 11/15/21 14:15 Ordered TROPONIN Q3H Lab 11/15/21 17:15 Ordered TROPONIN Q3H Lab 11/15/21 20:15 Ordered TSH [TSH, 3RD Generation] Stat Lab 11/15/21 08:30 Completed UA W/RFX CULTURE Stat Lab 11/15/21 08:00 Completed Medication Summary Generic Name Dose Route Start Last Admin Trade Name Diallo PRN Reason Stop Dose Admin Sodium Chloride 500 mls @ 500 mls/hr 11/15/21 12:23 Sodium Chloride 0.9% 500 Ml IV 11/15/21 13:22 .Q1H ONE Discontinued Medications Generic Name Dose Route Start Last Admin Trade Name Diallo PRN Reason Stop Dose Admin Sodium Chloride 1,000 mls @ 999 mls/hr 11/15/21 08:12 11/15/21 08:31 Sodium Chloride 0.9% 1000 Ml IV 11/15/21 09:12 999 mls/hr .Q1H1M STA Administration Sodium Chloride Confirm 11/15/21 08:30 Sodium Chloride 0.9% 1000 Ml Administered 11/15/21 08:31 Dose 1,000 mls @ ud .ROUTE .STK-MED ONE Sodium Chloride 1,000 mls @ 999 mls/hr 11/15/21 09:55 11/15/21 10:29 Sodium Chloride 0.9% 1000 Ml IV 11/15/21 10:55 999 mls/hr .Q1H1M STA Administration Sodium Chloride Confirm 11/15/21 10:28 Sodium Chloride 0.9% 1000 Ml Administered 11/15/21 10:29 Dose 1,000 mls @ ud .ROUTE .STK-MED ONE Ondansetron HCl 4 mg 11/15/21 08:12 11/15/21 08:31 Ondansetron Hcl 4 Mg/2 Ml Vial IV 11/15/21 08:13 4 mg STAT STA Administration Ondansetron HCl Confirm 11/15/21 08:30 Ondansetron Hcl 4 Mg/2 Ml Vial Administered 11/15/21 08:31 Dose 4 mg .ROUTE .STK-MED ONE Lab/Rad Data: Laboratory Result Diagrams 11/15/21 08:30 11/15/21 11:55 Laboratory Results 11/15/21 11/15/21 11/15/21 Range/Units 11:55 08:30 08:30 WBC (4.0-10.5) K/mm3 RBC (4.1-5.6) M/mm3 Hgb (12.5-18.0) gm/dl Hct (42-50) % MCV (78-100) fl MCH (26-32) pg MCHC (32-36) g/dl RDW (11.5-14.0) % Plt Count (150-450) K/mm3 MPV (7.5-11.0) fl Gran % (36.0-66.0) % Eos # (Auto) (0-0.5) Absolute Lymphs (auto) (1.0-4.6) Absolute Monos (auto) (0.0-1.3) Lymphocytes % (24.0-44.0) % Monocytes % (0.0-12.0) % Eosinophils % (0.00-5.0) % Basophils % (0.0-0.4) % Absolute Granulocytes (1.4-6.9) Basophils # (0-0.4) Sodium 141 (137-145) mmol/L Potassium 3.9 (3.5-5.1) mmol/L Chloride 118 H (98-107) mmol/L Carbon Dioxide 12 L* (22-30) mmol/L Anion Gap 14.4 (5-15) MEQ/L BUN 44 H (9-20) mg/dL Creatinine 5.11 H (0.66-1.25) mg/dL Estimated GFR 11.9 ML/MIN Glucose 95 (74-106) mg/dL Lactic Acid (0.4-2.0) Calcium 7.9 L (8.4-10.2) mg/dL Magnesium (1.6-2.3) mg/dL Total Bilirubin (0.2-1.3) mg/dL AST (17-59) U/L ALT (0-50) U/L Alkaline Phosphatase (38-126) U/L Troponin I (0.000-0.034) ng/mL NT-Pro-B Natriuret Pep (0-900) pg/mL Serum Total Protein (6.3-8.2) g/dL Albumin (3.5-5.0) g/dL Amylase (30-110) U/L Lipase (23-300) U/L Thyroxine (T4) (5.53-10.96) ug/dL TSH 3rd Generation 3.280 (0.47-4.68) mIU/L Urinalys Dipstick Clnc Urine Color (YELLOW) Urine Appearance (CLEAR) Urine pH (5-6) Ur Specific [place] (1.005-1.025) POC Urine Protein Conf (Negative) Urine Ketones (NEGATIVE) Urine Nitrite (NEGATIVE) Urine Bilirubin (NEGATIVE) Urine Urobilinogen (0-1) mg/dL Urine Leukocytes (NEGATIVE) Urine WBC (Auto) (0-5) /HPF Urine RBC (Auto) (0-2) /HPF U Epithel Cells (Auto) (FEW) /HPF Urine Bacteria (Auto) (NEGATIVE) /HPF Urine RBC (0-5) Solo/ul Unidentified Crystals (NEGATIVE) /HPF Ur Culture Indicated? Urine Glucose (NEGATIVE) mg/dL Monoscreen (Negative) Influenza Type A Ag NEGATIVE (NEGATIVE) Influenza Type B Ag NEGATIVE (NEGATIVE) RSV (PCR) NEGATIVE (Negative) SARS-CoV-2 (PCR) NEGATIVE (NEGATIVE) 11/15/21 11/15/21 11/15/21 Range/Units 08:30 08:30 08:30 WBC (4.0-10.5) K/mm3 RBC (4.1-5.6) M/mm3 Hgb (12.5-18.0) gm/dl Hct (42-50) % MCV (78-100) fl MCH (26-32) pg MCHC (32-36) g/dl RDW (11.5-14.0) % Plt Count (150-450) K/mm3 MPV (7.5-11.0) fl Gran % (36.0-66.0) % Eos # (Auto) (0-0.5) Absolute Lymphs (auto) (1.0-4.6) Absolute Monos (auto) (0.0-1.3) Lymphocytes % (24.0-44.0) % Monocytes % (0.0-12.0) % Eosinophils % (0.00-5.0) % Basophils % (0.0-0.4) % Absolute Granulocytes (1.4-6.9) Basophils # (0-0.4) Sodium 140 (137-145) mmol/L Potassium 3.8 (3.5-5.1) mmol/L Chloride 114 H (98-107) mmol/L Carbon Dioxide 12 L* (22-30) mmol/L Anion Gap 17.4 H (5-15) MEQ/L BUN 50 H (9-20) mg/dL Creatinine 5.81 H (0.66-1.25) mg/dL Estimated GFR 10.3 ML/MIN Glucose 112 H (74-106) mg/dL Lactic Acid (0.4-2.0) Calcium 9.1 (8.4-10.2) mg/dL Magnesium 1.8 (1.6-2.3) mg/dL Total Bilirubin 0.60 (0.2-1.3) mg/dL AST 30 (17-59) U/L ALT 25 (0-50) U/L Alkaline Phosphatase 92 (38-126) U/L Troponin I < 0.012 (0.000-0.034) ng/mL NT-Pro-B Natriuret Pep 483 (0-900) pg/mL Serum Total Protein 9.2 H (6.3-8.2) g/dL Albumin 3.5 (3.5-5.0) g/dL Amylase 83 (30-110) U/L Lipase 124 (23-300) U/L Thyroxine (T4) 5.27 L (5.53-10.96) ug/dL TSH 3rd Generation (0.47-4.68) mIU/L Urinalys Dipstick Clnc Urine Color (YELLOW) Urine Appearance (CLEAR) Urine pH (5-6) Ur Specific [place] (1.005-1.025) POC Urine Protein Conf (Negative) Urine Ketones (NEGATIVE) Urine Nitrite (NEGATIVE) Urine Bilirubin (NEGATIVE) Urine Urobilinogen (0-1) mg/dL Urine Leukocytes (NEGATIVE) Urine WBC (Auto) (0-5) /HPF Urine RBC (Auto) (0-2) /HPF U Epithel Cells (Auto) (FEW) /HPF Urine Bacteria (Auto) (NEGATIVE) /HPF Urine RBC (0-5) Solo/ul Unidentified Crystals (NEGATIVE) /HPF Ur Culture Indicated? Urine Glucose (NEGATIVE) mg/dL Monoscreen NEGATIVE (Negative) Influenza Type A Ag (NEGATIVE) Influenza Type B Ag (NEGATIVE) RSV (PCR) (Negative) SARS-CoV-2 (PCR) (NEGATIVE) 11/15/21 11/15/21 11/15/21 Range/Units 08:30 08:30 08:00 WBC 6.1 (4.0-10.5) K/mm3 RBC 4.33 (4.1-5.6) M/mm3 Hgb 12.9 (12.5-18.0) gm/dl Hct 38.7 L (42-50) % MCV 89.4 (78-100) fl MCH 29.8 (26-32) pg MCHC 33.3 (32-36) g/dl RDW 15.0 H (11.5-14.0) % Plt Count 265 (150-450) K/mm3 MPV 9.6 (7.5-11.0) fl Gran % 73.9 H (36.0-66.0) % Eos # (Auto) 0.19 (0-0.5) Absolute Lymphs (auto) 0.81 L (1.0-4.6) Absolute Monos (auto) 0.59 (0.0-1.3) Lymphocytes % 13.2 L (24.0-44.0) % Monocytes % 9.6 (0.0-12.0) % Eosinophils % 3.1 (0.00-5.0) % Basophils % 0.2 (0.0-0.4) % Absolute Granulocytes 4.52 (1.4-6.9) Basophils # 0.01 (0-0.4) Sodium (137-145) mmol/L Potassium (3.5-5.1) mmol/L Chloride (98-107) mmol/L Carbon Dioxide (22-30) mmol/L Anion Gap (5-15) MEQ/L BUN (9-20) mg/dL Creatinine (0.66-1.25) mg/dL Estimated GFR ML/MIN Glucose (74-106) mg/dL Lactic Acid 0.7 (0.4-2.0) Calcium (8.4-10.2) mg/dL Magnesium (1.6-2.3) mg/dL Total Bilirubin (0.2-1.3) mg/dL AST (17-59) U/L ALT (0-50) U/L Alkaline Phosphatase (38-126) U/L Troponin I (0.000-0.034) ng/mL NT-Pro-B Natriuret Pep (0-900) pg/mL Serum Total Protein (6.3-8.2) g/dL Albumin (3.5-5.0) g/dL Amylase (30-110) U/L Lipase (23-300) U/L Thyroxine (T4) (5.53-10.96) ug/dL TSH 3rd Generation (0.47-4.68) mIU/L Urinalys Dipstick Clnc MAIN LAB Urine Color LT.YELLOW (YELLOW) Urine Appearance CLEAR (CLEAR) Urine pH 5.5 (5-6) Ur Specific [place] 1.010 (1.005-1.025) POC Urine Protein Conf NEGATIVE (Negative) Urine Ketones NEGATIVE (NEGATIVE) Urine Nitrite NEGATIVE (NEGATIVE) Urine Bilirubin NEGATIVE (NEGATIVE) Urine Urobilinogen 0.2 (0-1) mg/dL Urine Leukocytes SMALL (NEGATIVE) Urine WBC (Auto) 26-50 (0-5) /HPF Urine RBC (Auto) 16-25 (0-2) /HPF U Epithel Cells (Auto) FEW (FEW) /HPF Urine Bacteria (Auto) FEW (NEGATIVE) /HPF Urine RBC SMALL (0-5) Solo/ul Unidentified Crystals 2-5 (NEGATIVE) /HPF Ur Culture Indicated? YES Urine Glucose NEGATIVE (NEGATIVE) mg/dL Monoscreen (Negative) Influenza Type A Ag (NEGATIVE) Influenza Type B Ag (NEGATIVE) RSV (PCR) (Negative) SARS-CoV-2 (PCR) (NEGATIVE) - Progress Progress: improved Progress Note: 11/15/21 12:24 Medical decision making: This patient has acute renal failure/insufficiency. His creatinine function is much elevated compared to an approximately 1.8 creatinine that was performed in July 2021. Patient has not been eating or drinking well. We did hydrate the patient and after 1 L fluid his creatinine function improved slightly. I am trying to proceed gentle with fluid hydration. We are waiting for another specimen of diarrheal stool that he is having and we will send this off as well. We will obtain a nephrology appointment for him. Counseled pt/family regarding: lab results, diagnosis, need for follow-up - Departure Departure Disposition: Home Clinical Impression: Dehydration, Diarrhea, Acute renal insufficiency Condition: Stable Critical Care Time: No Referrals: JERONIMO SANTACRUZ [Primary Care Provider] - Follow up/PCP as directed Additional Instructions: Drink plenty of clear liquids. Do not advance your diet until you are drinking clear liquids well. Take your medications as prescribed Prescriptions: Metronidazole 500 mg [Flagyl 500 MG] 500 mg PO TID #21 tablet
[2021-11-15] MEDS ORDERED: Sodium Chloride 0.9% 1000 ML 1,000 ML ONE ×2 (08:30→10:28)
[2021-11-15] MEDS ORDERED: Zofran 4 MG/2 ML VIAL ONE (08:30)
[2021-11-15] MEDS: Sodium Chloride 0.9% 1000 ML 1,000 ML IV STA ×2 (08:31→10:29)
[2021-11-15] MEDS: Zofran 4 MG/2 ML VIAL IV STA (08:31)
[2021-11-15 08:43] LABS: Absolute Neutrophil Ct (ANC) 4.52 (1.4-6.9); Basophil (Absolute #) 0.01 (0-0.4); Eosinophil % 3.1 % (0.00-5.0); Eosinophil (Absolute #) 0.19 (0-0.5); Hematocrit 38.7 % (42-50); Hemoglobin 12.9 gm/dl (12.5-18.0); Lymphocyte (Absolute #) 0.81 (1.0-4.6); Lymphocytes % 13.2 % (24.0-44.0); Mean Cell Volume 89.4 fl (78-100); Mean Corpuscular Hemoglobin 29.8 pg (26-32); Mean Corpuscular Hgb Concent. 33.3 g/dl (32-36); Mean Platelet Volume 9.6 fl (7.5-11.0); Monocyte (Absolute #) 0.59 (0.0-1.3); Monocytes % 9.6 % (0.0-12.0); Neutrophil % 73.9 % (36.0-66.0); Platelet Count 265 K/mm3 (150-450); Red Blood Count 4.33 M/mm3 (4.1-5.6); White Blood Count 6.1 K/mm3 (4.0-10.5)
--- NOTE | 2021-11-15 08:55 | XRAY ---
Exam: AP upright portable chest film 11/15/2021. Comparison: AP portable chest film from 01/10/2021. Indication: 71-year-old male with cough and vomiting; nonsmoker. Findings: The patient is slightly rotated toward the right. The transverse heart size appears within normal limits. There is mild tortuosity of both the ascending and proximal descending thoracic aorta. There is a suggestion of some mild old healed granulomatous disease within the mitra, as well as a small stable calcified granuloma at the lateral left lung base. Mild subsegmental plate atelectasis versus scarring is seen at the lateral left lung base. This is less prominent as compared to 01/10/2021. There is also some minimal biapical pleural-parenchymal scarring, right greater than left, representing no significant change. I see no air space infiltrates, vascular congestion, pneumothorax, or pleural fluid. Moderate convexity of the upper thoracic spine toward the left centered at T2-T3 is again seen suggesting scoliosis. I suspect there is probably some convexity of the visualized lower spine toward the right, although this is incompletely seen on the current portable chest radiograph. No acute osseous process is seen. Impression: 1. No air space infiltrates to suggest pneumonia or other acute cardiopulmonary disease is seen. 2. Mild plate atelectasis and/or fibrotic scarring at the lateral left lung base has decreased as compared to 02/12/2021. There is also minimal biapical pleural-parenchymal scarring, right greater than left. These findings appear to be chronic. 3. Other incidental findings, as discussed above.
[2021-11-15 09:15] LABS: ALBUMIN 3.5 g/dL (3.5-5.0); ANION GAP 17.4 MEQ/L (5-15); BILIRUBIN,TOTAL 0.6 mg/dL (0.2-1.3); Calcium 9.1 mg/dL (8.4-10.2); Creatinine 1 5.81 mg/dL (0.66-1.25); EST GLOMERULAR FILTRATION RATE 10.3 ML/MIN; MAGNESIUM 1.8 mg/dL (1.6-2.3); Potassium 3.8 mmol/L (3.5-5.1); T4 (Thyroxine) 5.27 ug/dL (5.53-10.96); Total Protein 9.2 g/dL (6.3-8.2)
[2021-11-15 09:19] LABS: INFLUENZA A NEGATIVE (NEGATIVE); INFLUENZA B NEGATIVE (NEGATIVE); RESPIRATORY SYNCTIAL VIRUS NEGATIVE (Negative); SARS-CoV-2 Xpert Express NEGATIVE (NEGATIVE)
[2021-11-15 10:16] LABS: Appearance CLEAR (CLEAR); Bilirubin NEGATIVE (NEGATIVE); Glucose NEGATIVE (NEGATIVE); Ketones NEGATIVE (NEGATIVE); Ph 5.5 (5-6); Protein,Urine Dip NEGATIVE (Negative); RBC SMALL Ery/ul (0-5); Urobilinogen 0.2 mg/dL (0-1)
[2021-11-15 10:17] LABS: Dipstick done @ ? MAIN LAB; Nitrite NEGATIVE (NEGATIVE)
[2021-11-15 10:18] LABS: WBC 26-50 /HPF (0-5)
[2021-11-15 10:19] LABS: Bacteria FEW /HPF (NEGATIVE); Epithelial Cells FEW /HPF (FEW); Urine Cultured Indicated? YES
[2021-11-15 11:03] VITALS: BP 139/85
[2021-11-15 12:08] LABS: ANION GAP 14.4 MEQ/L (5-15); Calcium 7.9 mg/dL (8.4-10.2); Creatinine 1 5.11 mg/dL (0.66-1.25); EST GLOMERULAR FILTRATION RATE 11.9 ML/MIN; Potassium 3.9 mmol/L (3.5-5.1)
[2021-11-15] MEDS ORDERED: Sodium Chloride 0.9% 500 ML 500 ML IV ONE (12:28)
[2021-11-15] MEDS: Sodium Chloride 0.9% 500 ML 500 ML IV ONE (12:30)
[2021-11-15] MEDS ORDERED: Flagyl 500 MG ONE (12:33)
[2021-11-15] MEDS: Flagyl 500 MG PO ONE (12:33)
[2021-11-15 13:14] VITALS: PULSE 66; O2SAT 97
[2021-11-17 13:13] LABS: Adenovirus F40/41 Not Detected (Not Detected); Astrovirus Not Detected (Not Detected); Campylobacter Not Detected (Not Detected); Cryptosporidium Not Detected (Not Detected); Cyclospora cayetanensis Not Detected (Not Detected); Entamoeba histolytica Not Detected (Not Detected); Enteroaggregative E coli Not Detected (Not Detected); Enterpathogenic E coli Not Detected (Not Detected); Entertoxigenic E coli Not Detected (Not Detected); Giardia lamblia Not Detected (Not Detected); Norovirus GI/GII Not Detected (Not Detected); Plesiomonas shigelloides Not Detected (Not Detected); Rotavirus A Not Detected (Not Detected); Salmonella Not Detected (Not Detected); Shig-toxin-producing E coli Not Detected (Not Detected); Shigella/Enterinvasive E coli Not Detected (Not Detected); Vibrio Not Detected (Not Detected); Vibrio cholerae Not Detected (Not Detected); Yersinia enterocolitica Not Detected (Not Detected)
[2021-11-17 13:48] LABS: Sapovirus Not Detected (Not Detected)
== END 2021-11-15 13:34 | disposition home or self-care (01) ==
LOC: ED 07:39
DX: N28.9 Disorder of kidney and ureter, unspecified (principal); N39.0 Urinary tract infection, site not specified; E86.0 Dehydration; R19.7 Diarrhea, unspecified; R53.1 Weakness; R11.2 Nausea with vomiting, unspecified; I10 Essential (primary) hypertension; Z79.01 Long term (current) use of anticoagulants; Z79.899 Other long term (current) drug therapy
CPT/HCPCS: 0241U; 36000; 36415; 71045; 80048; 80053; 81015; 82150; 83605; 83690; 83735; 83880; 84436; 84443; 84484; 85025; 86308; 87086; 87507; 93005; 94760; 96374; 99284; 96360; 96361; J2405; A9270-GY

== ENCOUNTER 2023-06-10 15:15 | Emergency (ER) | payer MEDICARE ==
--- NOTE | 2023-06-10 15:30 | ERPHSYRPT ---
- History of Present Illness Time Seen by Provider: 06/10/23 15:29 Source: patient Exam Limitations: no limitations Physician History: This is a 72-year-old white male patient who slipped and hyperextended his left knee. Yesterday evening he went into the basement to work on the furnace and he slipped on a spill that was present. He stated he did not actually fall but slid and then hyperextended the left knee. Today he has pain. He took Tylenol which did not help him. Patient does have a history of atrial fibrillation and is on Eliquis. Patient has a history of hypothyroidism. Occurred: yesterday Injuries/Pain Location: lower extremity (Knee) Loss of Consciousness: no loss of consciousness Quality: aching Severity of Pain-Max: moderate Severity of Pain-Current: mild (To moderate) Modifying Factors: Improves With: movement Associated Symptoms (Fall): extremity injury (Left knee), No back pain, No chest pain Allergies/Adverse Reactions: No Known Drug Allergies Allergy (Verified 11/15/21 07:58) Home Medications: Levothyroxine Sodium 100 Mcg [Synthroid 100 Mcg] 50 mcg PO DAILY 01/21/20 [History] Loratadine 10 mg PO DAILY 01/21/20 [History] Calcium Carbonate/Vitamin D3 [Calcium 600-Vit D3 400 Tablet] 1 tab PO DAILY 01/10/21 [History] Apixaban [Eliquis 5 mg Tablet] 5 mg PO BID 11/15/21 [History] Diltiazem HCl [Cardizem Cd] 120 mg PO DAILY 11/15/21 [History] Hx Tetanus, Diphtheria Vaccination/Date Given: Yes Hx Influenza Vaccination/Date Given: Yes Hx Pneumococcal Vaccination/Date Given: No Travel Risk - International Travel Have you traveled outside of the country in past 3 weeks: No - Coronavirus Screening Are you exhibiting any of the following symptoms?: No Close contact with a COVID-19 positive Pt in past 14-21 Days: No - Vaccine Status Have you recieved a Covid-19 vaccination: 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[employer] - Vaccination Dates Date of 2cond Vaccination (if applicable): 04/10/2021 - Review of Systems Constitutional: No Symptoms Eyes: No Symptoms Ears, Nose, & Throat: No Symptoms Respiratory: No Symptoms Cardiac: No Symptoms Abdominal/Gastrointestinal: No Symptoms Genitourinary Symptoms: No Symptoms Musculoskeletal: Injury (Left knee) Skin: No Symptoms Neurological: No Symptoms Psychological: No Symptoms Endocrine: No Symptoms Hematologic/Lymphatic: No Symptoms Immunological/Allergic: No Symptoms All Other Systems: Reviewed and Negative - Past Medical History Pertinent Past Medical History: Yes Neurological History: No Pertinent History ENT History: No Pertinent History Cardiac History: Other Respiratory History: No Pertinent History Endocrine Medical History: No Pertinent History, Hypothyroidism GI Medical History: No Pertinent History History: No Pertinent History Psycho-Social History: No Pertinent History Male Reproductive Disorders: No Pertinent History Other Medical History: seasonal allergies, afib, HTN - Past Surgical History Past Surgical History: Yes Neuro Surgical History: No Pertinent History Cardiac: No Pertinent History Respiratory: No Pertinent History Gastrointestinal: No Pertinent History Genitourinary: No Pertinent History Musculoskeletal: No Pertinent History Male Surgical History: No Pertinent History Other Surgical History: hernia x 3, hemorriods - Social History Smoking Status: Former smoker Exposure to second hand smoke: No Drug Use: none Patient Lives Alone: No - Nursing Vital Signs Nursing Vital Signs: Initial Vital Signs Temperature 98 F 06/10/23 15:15 Pulse Rate 75 06/10/23 15:15 Respiratory Rate 17 06/10/23 15:15 Blood Pressure 120/77 06/10/23 15:15 O2 Sat by Pulse Oximetry 94 L 06/10/23 15:15 Pain Scale Pain Intensity 4 - Clint Coma Score Best Eye Response (Clint): (4) open spontaneously Best Verbal Response ([place]): (5) oriented Best Motor Response (Clint): (6) obeys commands Clint Total: 15 - Physical Exam General Appearance: no apparent distress, alert, anxiety Head Injury: no evidence of injury Eye Exam: PERRL/EOMI, eyes nml inspection ENT Exam: airway nml, nml ext.inspection Neck Exam: supple, trachea midline, full range of motion, normal alignment, nor mal inspection Respiratory/Chest Exam: No chest tenderness, No respiratory distress Gastrointestinal Exam: No tenderness Extremity Exam: normal range of motion, tenderness (Anterior left knee.), other (Abrasion of the skin anterior left knee) Neurologic Exam: alert, oriented x 3, cooperative, production recorder II-XII nml as tested, normal mood/affect, nml cerebellar function, nml station & gait, sensation nml Skin Exam: abrasion (Skin overlying anterior left knee) SpO2 Interpretation: normal O2 Delivery: Room Air - Course Nursing assessment & vital signs reviewed: Yes Ordered Tests: Active Orders 24 hr Category Date Time Status KNEE (3 VIEWS) Stat Exams 06/10/23 15:53 Taken - Progress Progress: unchanged, pain not gone completely Progress Note: 06/10/23 16:23 This patient's medical issue is 1 of low complexity. Level complex in the workup performed is based on review of the patient's past medical history, review the patient's medication list, review the patient's drug allergy list, history present as and physical findings on examination. The workup in this patient includes x-ray of the left knee. We will provide the patient with Percocet 5/325, 1 here in the emergency department and then remotely send 6 more tablets to his pharmacy. He is to continue using ice pack. Patient is on Eliquis so he will not be using NSAIDs. Counseled pt/family regarding: diagnosis, need for follow-up, rad results Medical Desision Making - Independent Historian Additional History obtained from: Spouse - Diagnostic Testing Diagnostic test were ordered, analyzed, and reviewed by me: Yes Radiological Interpretation: Interpreted by me - Risk of complications The pt has a mod risk of morbidity or mortality based on: Need for prescription drug management - Departure Departure Disposition: Home Clinical Impression: Left knee sprain Condition: Stable Critical Care Time: No Referrals: JERONIMO SANTACRUZ [Primary Care Provider] - Follow up/PCP as directed Additional Instructions: Ice pack to left knee 3 times a day for the next 48 hours. Take your pain medicine another medication as prescribed. Follow-up with your primary care provider, by phone, on 06/12/2023 to make arranges for further evaluation and management. Prescriptions: Oxycodone HCl/Acetaminophen [Percocet 5-325 mg Tablet] 1 each PO Q8H PRN PRN #6 tablet MDD 3 PRN Reason: Moderate To Severe Pain
[2023-06-10 15:48] VITALS: TEMP 98; O2SAT 94
[2023-06-10] MEDS ORDERED: PERCOCET TABLET 5/325MG PO STA (16:27)
[2023-06-10] MEDS ORDERED: PERCOCET TABLET 5/325MG ONE (16:31)
[2023-06-10 16:38] VITALS: BP 120/76; PULSE 72; RESP 16
--- NOTE | 2023-06-10 19:47 | XRAY ---
Indication: Pain following fall. Comparison: None 3 view left knee demonstrates small tibial tuberosity/tiny suprapatella spurring, and tiny lateral condyle bone island. No other bony, articular, or soft tissue abnormalities.
== END 2023-06-10 16:42 | disposition home or self-care (01) ==
LOC: ED 15:15
DX: S83.92XA Sprain of unspecified site of left knee, initial encounter (principal); W18.49XA Other slipping, tripping and stumbling without falling, initial encounter; Y93.E9 Activity, other interior property and clothing maintenance; Y92.008 Other place in unspecified non-institutional (private) residence as the place of occurrence of the external cause; Z79.01 Long term (current) use of anticoagulants; Z79.891 Long term (current) use of opiate analgesic; Z79.899 Other long term (current) drug therapy
CPT/HCPCS: 73562; 99283; A9270-GY

== ENCOUNTER 2023-10-03 16:38 | Observation (INO) | payer MEDICARE ==
[2023-10-03] MEDS ORDERED: CARDIZEM DRIP 100 MG/100 ML D5W 100 ML IV ONE (16:42)
[2023-10-03] MEDS ORDERED: Sodium Chloride 0.9% 1000 ML 1,000 ML ONE (16:59)
--- NOTE | 2023-10-03 16:59 | ERPHSYRPT ---
- History of Present Illness Time Seen by Provider: 10/03/23 16:55 Source: patient Exam Limitations: no limitations Patient Subjective Stated Complaint: pt here for dizziness, nausea. vomited x1, then states on way here he states chest pain started. pt has hx afib . pt states he feels like head is spinning Triage Nursing Assessment: pt alert, arrived per wc . resp easy, no cough, skin w/d/p. moves all ext well, no edema noted, abd soft, Physician History: 73-year-old male history of A-fib with RVR presents to our ED for evaluation of nausea vomiting and dizziness. Symptoms started earlier in the day. And route to our hospital chest pain started. Upon arrival EKG revealed active A-fib with RVR. Symptoms are mild to moderate in intensity. No specific worsening or improving factors. Patient significant other at bedside. They voiced no other complaints or concerns at this time. Portions of this note were created with voice recognition technology. There may be grammatical, spelling, punctuation or sound alike errors Timing/Duration: today Activities at Onset: none Severity of Dyspnea-Max: moderate Severity of Dyspnea-Current: mild Modifying Factors: Improves With: nothing Allergies/Adverse Reactions: No Known Drug Allergies Allergy (Verified 10/03/23 16:40) Home Medications: Levothyroxine Sodium 100 Mcg [Synthroid 100 Mcg] 50 mcg PO DAILY 01/21/20 [History] Loratadine 10 mg PO DAILY 01/21/20 [History] Calcium Carbonate/Vitamin D3 [Calcium 600-Vit D3 400 Tablet] 1 tab PO DAILY 01/10/21 [History] Apixaban [Eliquis 5 mg Tablet] 5 mg PO BID 11/15/21 [History] Ascorbic Acid 1,000 mg PO DAILY 10/03/23 [History] Aspirin EC 81 mg [Ecotrin 81 mg] 81 mg PO DAILY 10/03/23 [History] Carvedilol 3.125 mg [Coreg 3.125 MG] 3.125 mg PO BID 10/03/23 [History] Latanoprost [Xalatan] 1 drop OP DAILY 10/03/23 [History] Hx Tetanus, Diphtheria Vaccination/Date Given: No Hx Influenza Vaccination/Date Given: Yes Hx Pneumococcal Vaccination/Date Given: Yes Immunizations Up to Date: Yes Travel Risk - International Travel Have you traveled outside of the country in past 3 weeks: No - Emerging Infectious Disease Are you exhibiting symptoms associated with any current EIDs: No - Review of Systems Constitutional: No Symptoms, No Fever, No Chills Eyes: No Symptoms Ears, Nose, & Throat: No Symptoms Respiratory: No Symptoms, No Cough, No Dyspnea Cardiac: No Symptoms, No Chest Pain, No Edema, No Syncope Abdominal/Gastrointestinal: No Symptoms, No Abdominal Pain, No Nausea, No Vomiting, No Diarrhea Genitourinary Symptoms: No Symptoms, No Dysuria Musculoskeletal: No Symptoms, No Back Pain, No Neck Pain Skin: No Symptoms, No Rash Neurological: No Symptoms, No Dizziness, No Focal Weakness, No Sensory Changes Psychological: No Symptoms Endocrine: No Symptoms Hematologic/Lymphatic: No Symptoms Immunological/Allergic: No Symptoms All Other Systems: Reviewed and Negative - Past Medical History Pertinent Past Medical History: Yes Neurological History: No Pertinent History ENT History: No Pertinent History Cardiac History: Other Respiratory History: No Pertinent History Endocrine Medical History: No Pertinent History, Hypothyroidism GI Medical History: No Pertinent History History: No Pertinent History Psycho-Social History: No Pertinent History Male Reproductive Disorders: No Pertinent History Other Medical History: seasonal allergies, afib, HTN - Past Surgical History Past Surgical History: Yes Neuro Surgical History: No Pertinent History Cardiac: No Pertinent History Respiratory: No Pertinent History Gastrointestinal: No Pertinent History Genitourinary: No Pertinent History Musculoskeletal: No Pertinent History Male Surgical History: No Pertinent History Other Surgical History: hernia x 3, hemorriods - Social History Smoking Status: Former smoker Exposure to second hand smoke: No Drug Use: none Patient Lives Alone: No - Nursing Vital Signs Nursing Vital Signs: Initial Vital Signs Temperature 97.5 F 10/03/23 16:41 Pulse Rate 147 H 10/03/23 16:41 Respiratory Rate 18 10/03/23 16:41 Blood Pressure 86/48 10/03/23 16:41 O2 Sat by Pulse Oximetry 94 L 10/03/23 16:41 Pain Scale Pain Intensity 0 - Physical Exam General Appearance: no apparent distress, alert Eye Exam: PERRL/EOMI Ears, Nose, Throat Exam: hearing grossly normal, normal ENT inspection, normal pharynx Neck Exam: normal inspection, supple Respiratory Exam: normal breath sounds, lungs clear Cardiovascular/Chest Exam: normal heart sounds, regular rate/rhythm Abdominal/Gastrointestinal Exam: soft, No tenderness, No distention, No mass Extremity Exam: non-tender, normal range of motion, normal inspection, no calf tenderness, no pedal edema Neurologic Exam: alert, oriented x 3, cooperative, epic director II-XII nml as tested, sensation nml, No motor deficits Skin Exam: normal color, warm, No dry Lymphatic Exam: No adenopathy SpO2 Interpretation: normal SpO2: 94 O2 Delivery: Room Air - Course Nursing assessment & vital signs reviewed: Yes EKG Interpreted by Me: RATE, A-fib, NORMAL AXIS, NORMAL INTERVALS - Radiology Exams Chest X-ray Interpretation: Teleradiologist Report (No acute findings) Ordered Tests: Active Orders 24 hr Category Date Time Status Bedrest ROUTINE Activity 10/03/23 20:06 Active Call Admit Doctor for Orders ON ADMISSION Care 10/03/23 20:06 Active Lion Tamer ROUTINE Care 10/03/23 20:06 Active Lion Tamer STAT Care 10/03/23 16:54 Completed Code Status Order ROUTINE Care 10/03/23 20:06 Active EKG-ER Only STAT Care 10/03/23 16:54 Completed IV Insertion STAT Care 10/03/23 16:54 Completed Neuro Checks Q4H Care 10/03/23 20:[address] in Observation ROUTINE Care 10/03/23 20:06 Active Pulse Oximetry (ED) STAT Care 10/03/23 16:54 Completed Consistent Carbohydrate Diet 1800 Calorie Diet 10/04/23 Breakfast Active CHEST 1 VIEW (PORTABLE) Stat Exams 10/03/23 20:01 Stop Req CBC W DIFF Stat Lab 10/03/23 17:10 Completed CMP Stat Lab 10/03/23 17:10 Completed D-DIMER QUANTITATIVE Stat Lab 10/03/23 17:10 Completed TROPONIN Q4H Lab 10/03/23 17:10 Completed TROPONIN Q4H Lab 10/03/23 18:50 Completed TROPONIN Q4H Lab 10/04/23 01:00 Ordered Pulse Oximetry CONTINUOUS RT 10/03/23 20:06 Active Transfer Order Routine Transfer 10/03/23 Completed Medication Summary Generic Name Dose Route Start Last Admin Trade Name Freq PRN Reason Stop Dose Admin Diltiazem HCl 100 mls @ 5 mls/hr 10/03/23 17:18 10/03/23 17:21 Cardizem Drip 100 Mg/100 Ml D5w IV 11/02/23 17:17 5 mg/hr .Q20H PRN 5 mls/hr HEART RATE/ A-FIB Administration Protocol 5 MG/HR Sodium Chloride 1,000 mls @ 125 mls/hr 10/03/23 17:30 10/03/23 17:20 Sodium Chloride 0.9% 1000 Ml IV 11/02/23 17:29 125 mls/hr .Q8H GINA Administration Discontinued Medications Generic Name Dose Route Start Last Admin Trade Name Freq PRN Reason Stop Dose Admin Diltiazem HCl Confirm 10/03/23 16:42 Cardizem Drip 100 Mg/100 Ml D5w Administered 10/03/23 16:43 Dose 100 mls @ ud IV .[employer] ONE Sodium Chloride Confirm 10/03/23 16:59 Sodium Chloride 0.9% 1000 Ml Administered 10/03/23 17:00 Dose 1,000 mls @ ud .ROUTE .[employer] ONE Lab/Rad Data: Laboratory Result Diagrams 10/03/23 17:10 10/03/23 17:10 Laboratory Results 10/03/23 10/03/23 10/03/23 Range/Units 18:50 17:10 17:10 WBC (4.0-10.5) x10^3/uL RBC (4.1-5.6) x10^6/uL Hgb (12.5-18.0) g/dL Hct (42-50) % MCV (78-100) fL MCH (26-32) pg MCHC (32-36) g/dL RDW (11.5-14.0) % Plt Count (150-450) x10^3/uL MPV (7.5-11.0) fL Gran % (36.0-66.0) % Immature Gran % (Auto) (0.00-0.4) % Nucleat RBC Rel Count (0.00-0.1) % Eos # (Auto) (0-0.5) x10^3/uL Immature Gran # (Auto) (0.00-0.03) x10^3u/L Absolute Lymphs (auto) (1.0-4.6) x10^3/uL Absolute Monos (auto) (0.0-1.3) x10^3/uL Absolute Nucleated RBC (0.00-0.01) x10^3u/L Lymphocytes % (24.0-44.0) % Monocytes % (0.0-12.0) % Eosinophils % (0.00-5.0) % Basophils % (0.0-0.4) % Absolute Granulocytes (1.4-6.9) x10^3/uL Basophils # (0-0.4) x10^3/uL D-Dimer 0.22 (0.0-0.50) mg/L Sodium (135-145) mmol/L Potassium (3.5-5.1) mmol/L Chloride (98-107) mmol/L Carbon Dioxide (22-30) mmol/L Anion Gap (5-15) MEQ/L BUN (9-20) mg/dL Creatinine (0.66-1.25) mg/dL Estimated GFR ML/MIN Glucose (74-106) mg/dL Calcium (8.4-10.2) mg/dL Total Bilirubin (0.2-1.3) mg/dL AST (17-59) U/L ALT (0-50) U/L Alkaline Phosphatase (38-126) U/L Troponin I < 0.012 < 0.012 (0.000-0.034) ng/mL Serum Total Protein (6.3-8.2) g/dL Albumin (3.5-5.0) g/dL 10/03/23 10/03/23 Range/Units 17:10 17:10 WBC 3.3 L (4.0-10.5) x10^3/uL RBC 5.27 (4.1-5.6) x10^6/uL Hgb 15.2 (12.5-18.0) g/dL Hct 47.5 (42-50) % MCV 90.1 (78-100) fL MCH 28.8 (26-32) pg MCHC 32.0 (32-36) g/dL RDW 14.6 H (11.5-14.0) % Plt Count 257 (150-450) x10^3/uL MPV 9.2 (7.5-11.0) fL Gran % 46.8 (36.0-66.0) % Immature Gran % (Auto) 0.3 (0.00-0.4) % Nucleat RBC Rel Count 0.0 (0.00-0.1) % Eos # (Auto) 0.36 (0-0.5) x10^3/uL Immature Gran # (Auto) 0.01 (0.00-0.03) x10^3u/L Absolute Lymphs (auto) 0.87 L (1.0-4.6) x10^3/uL Absolute Monos (auto) 0.46 (0.0-1.3) x10^3/uL Absolute Nucleated RBC 0.00 (0.00-0.01) x10^3u/L Lymphocytes % 26.6 (24.0-44.0) % Monocytes % 14.1 H (0.0-12.0) % Eosinophils % 11.0 H (0.00-5.0) % Basophils % 1.2 (0.0-0.4) % Absolute Granulocytes 1.53 (1.4-6.9) x10^3/uL Basophils # 0.04 (0-0.4) x10^3/uL D-Dimer (0.0-0.50) mg/L Sodium 136 (135-145) mmol/L Potassium 4.9 (3.5-5.1) mmol/L Chloride 111 H (98-107) mmol/L Carbon Dioxide 13 L* (22-30) mmol/L Anion Gap 16.0 H (5-15) MEQ/L BUN 29 H (9-20) mg/dL Creatinine 1.97 H (0.66-1.25) mg/dL Estimated GFR 35.2 ML/MIN Glucose 99 (74-106) mg/dL Calcium 9.5 (8.4-10.2) mg/dL Total Bilirubin 0.60 (0.2-1.3) mg/dL AST 32 (17-59) U/L ALT 27 (0-50) U/L Alkaline Phosphatase 112 (38-126) U/L Troponin I (0.000-0.034) ng/mL Serum Total Protein 9.7 H (6.3-8.2) g/dL Albumin 3.5 (3.5-5.0) g/dL - Progress Progress: improved Air Movement: good Progress Note: 73-year-old male history of A-fib with RVR on Eliquis presents to the emergency department for evaluation of shortness of breath. EKG reveals A-fib with RVR. Patient hypotensive. D-dimer negative. Troponin negative x 2. Patient currently on Cardizem drip. Patient received a liter bolus. MAP is 67. No need for pressors at this time. Patient asymptomatic. Shortness of breath resolved. Vital stable. Patient will be admitted for further evaluation and treatment. No additional anticoagulation indicated. Plan of care discussed with patient. He agrees to admission at [facility] for further evaluation and treatment. Case and management discussed with Dr. Mantilla who accepts admission to observation. Portions of this note were created with voice recognition technology. There may be grammatical, spelling, punctuation or sound alike errors Complexity problem addressed is high acute complicated. Patient's condition was threatening to bodily function as patient was i hypotensive n active A-fib with RVR Critical care time is 3 hours. Patient was in A-fib with RVR and hypotensive and dizzy. We immediately initiated a Cardizem drip to control the heart rate and help blood pressure. Immediate action was indicated to prevent further deterioration Complex of data reviewed and analyzed is extensive. Test ordered test reviewed results analyzed and correlated clinically with history and physical examination. Management discussed with hospitalist Dr. Mantilla at [address] Mantilla accepts admission to ICU Risk of complication and or risk of morbidity/mortality patient management is high. Patient requires hospitalization for further evaluation and treatment. Vital stable. Time spent to admit patient is approximately 25 minutes. Plan of care established for shared decision making. No social determinants of health present impede follow-up. Portions of this note were created with voice recognition technology. There may be grammatical, spelling, punctuation or sound alike errors 10/03/23 20:10 Blood Culture(s) Obtained: No Antibiotics given: No Counseled pt/family regarding: lab results, diagnosis, rad results - Departure Departure Disposition: Observation Clinical Impression: Atrial fibrillation with RVR, Hypotension, Chronic renal insufficiency, Leukopenia Condition: Stable Critical Care Time: Yes Critical Care Time(excluding separately billable procedures): Critical 105-134 mins
[2023-10-03 17:18] LABS: Absolute Neutrophil Ct (ANC) 1.53 x10^3/uL (1.4-6.9); BASOPHIL % 1.2 % (0.0-0.4); Basophil (Absolute #) 0.04 x10^3/uL (0-0.4); Eosinophil (Absolute #) 0.36 x10^3/uL (0-0.5); Hematocrit 47.5 % (42-50); Hemoglobin 15.2 g/dL (12.5-18.0); IMMATURE GRAN # 0.01 x10^3u/L (0.00-0.03); IMMATURE GRAN % 0.3 % (0.00-0.4); Lymphocyte (Absolute #) 0.87 x10^3/uL (1.0-4.6); Lymphocytes % 26.6 % (24.0-44.0); Mean Cell Volume 90.1 fL (78-100); Mean Corpuscular Hemoglobin 28.8 pg (26-32); Mean Platelet Volume 9.2 fL (7.5-11.0); Monocyte (Absolute #) 0.46 x10^3/uL (0.0-1.3); Monocytes % 14.1 % (0.0-12.0); Neutrophil % 46.8 % (36.0-66.0); Platelet Count 257 x10^3/uL (150-450); Red Blood Count 5.27 x10^6/uL (4.1-5.6); Red Cell Distribution Width 14.6 % (11.5-14.0); White Blood Count 3.3 x10^3/uL (4.0-10.5)
[2023-10-03] MEDS: Sodium Chloride 0.9% 1000 ML 1,000 ML IV SCH (17:20)
[2023-10-03] MEDS: CARDIZEM DRIP 100 MG/100 ML D5W 100 ML IV PRN (17:21)
[2023-10-03 17:35] LABS: ALBUMIN 3.5 g/dL (3.5-5.0); BILIRUBIN,TOTAL 0.6 mg/dL (0.2-1.3); Calcium 9.5 mg/dL (8.4-10.2); Creatinine 1 1.97 mg/dL (0.66-1.25); EST GLOMERULAR FILTRATION RATE 35.2 ML/MIN; Potassium 4.9 mmol/L (3.5-5.1); Total Protein 9.7 g/dL (6.3-8.2)
--- NOTE | 2023-10-03 20:41 | PCM.HP ---
History of Present Illness - Chief Complaint Chief Complaint: A-fib with RVR Date: 10/03/23 History of Present Illness: Mr. EASLEY is a 73 year old male with a past medical history significant for hypertension, atrial fibrillation, hypothyroidism and chronic renal insuff iciency who presents to the hospital with complaints of nausea, vomiting and palpitations. Upon arrival, he was found to be in rapid afib with blood pressures in the 80s systolically. He was given IVFs, then started on Cardizem drip. He is chronically anticoagulated with Eliquis and has been taking that medicine. No chest pain or shortness of breath. No dysuria, hematuria or urinary frequency. Initial labs were notable for a creatinine of 1.97 and bicarb of 13. - Review of Systems Constitutional: No Fever, No Chills, No Fatigue Eyes: No Vision Changes Ears, Nose, & Throat: No Painful Swallowing Respiratory: No Cough, No Orthopnea, No Short Of Breath Cardiac: No Chest Pain, No Edema, No Syncope Abdominal/Gastrointestinal: Nausea, Vomiting, No Abdominal Pain Genitourinary Symptoms: No Dysuria, No Frequency, No Hematuria Musculoskeletal: No Arthralgias Skin: No Rash Neurological: No Focal Weakness Psychological: No Suicidal Ideations Endocrine: No Polyuria, No Polydipsia Medications & Allergies Home Medications: Home Medication List Levothyroxine Sodium 100 Mcg [Synthroid 100 Mcg] 50 mcg PO DAILY 01/21/20 [History Confirmed 10/03/23] Loratadine 10 mg PO DAILY 01/21/20 [History Confirmed 10/03/23] Calcium Carbonate/Vitamin D3 [Calcium 600-Vit D3 400 Tablet] 1 tab PO DAILY 01/10/21 [History Confirmed 10/03/23] Apixaban [Eliquis 5 mg Tablet] 5 mg PO BID 11/15/21 [History Confirmed 10/03/23] Ascorbic Acid 1,000 mg PO DAILY 10/03/23 [History Confirmed 10/03/23] Aspirin EC 81 mg [Ecotrin 81 mg] 81 mg PO DAILY 10/03/23 [History Confirmed 10/03/23] Carvedilol 3.125 mg [Coreg 3.125 MG] 3.125 mg PO BID 10/03/23 [History Confirmed 10/03/23] Latanoprost [Xalatan] 1 drop OP DAILY 10/03/23 [History Confirmed 10/03/23] Allergies/Adverse Reactions: Allergies Allergy/AdvReac Type Severity Reaction Status Date / Time No Known Drug Allergies Allergy Verified 10/03/23 16:40 - Past Medical History Past Medical History: Yes Neurological History: No Pertinent History ENT History: No Pertinent History Cardiac History: Other Respiratory History: No Pertinent History Endocrine Medical History: No Pertinent History, Hypothyroidism GI Medical History: No Pertinent History History: No Pertinent History Pyscho-Social History: No Pertinent History Male Reproductive Disorders: No Pertinent History Comment: seasonal allergies, afib, HTN - Past Surgical History Past Surgical History: Yes Neuro Surgical History: No Pertinent History Cardiac History: No Pertinent History Respiratory Surgery: No Pertinent History GI Surgical History: No Pertinent History Genitourinary Surgical Hx: No Pertinent History Musculskeletal Surgical Hx: No Pertinent History Male Surgical History: No Pertinent History Other Surgical History: hernia x 3, hemorriods - Social History Smoking Status: Former smoker Exposure to second hand smoke: No Alcohol: None Drug Use: none - Social Determinants of Health Will the patient participate in the screening: Declined to provide - Physical Exam Vital Signs: Vital Signs - 24 hr Temp Pulse Pulse Resp BP BP Pulse Ox 10/03/23 20:16 94 L 10/03/23 20:00 115 H 28 H 93/54 95 10/03/23 19:50 101 H 24 96/63 94 L 10/03/23 19:45 105 H 26 H 74/56 96 10/03/23 19:30 101 H 25 H 96/72 94 L 10/03/23 19:15 116 H 22 93/60 94 L 10/03/23 19:05 111 H 20 89/55 94 L 10/03/23 18:00 100 H 23 89/69 92 L 10/03/23 17:55 102 H 20 90/62 94 L 10/03/23 17:50 97 H 18 87/58 91 L 10/03/23 17:45 105 H 20 93/67 91 L 10/03/23 17:40 99 H 22 88/65 91 L 10/03/23 17:35 90 24 64/52 92 L 10/03/23 17:30 99 H 27 H 85/59 93 L 10/03/23 17:25 98 H 25 H 81/53 92 L 10/03/23 17:24 97 H 25 H 74/50 93 L 10/03/23 17:23 92 L 10/03/23 17:20 87 24 92 L 10/03/23 17:10 108 H 19 93 L 10/03/23 17:03 101 H 22 92 L 10/03/23 16:55 179 H 25 H 92 L 10/03/23 16:44 150 H 10/03/23 16:41 97.5 F 147 H 18 86/48 94 L General Appearance: no apparent distress Neurologic Exam: alert, oriented x 3 Ears, Nose, Throat Exam: dry mucous membranes Neck Exam: supple Respiratory Exam: No respiratory distress Cardiovascular Exam: No regular rate/rhythm Gastrointestinal/Abdomen Exam: soft Extremity Exam: No pedal edema, No swelling Skin Exam: normal color, No rash Results - Labs Lab/Micro Results: Lab Results-Last 24 Hours 10/03/23 10/03/23 10/03/23 Range/Units 17:10 17:10 17:10 WBC 3.3 L (4.0-10.5) x10^3/uL RBC 5.27 (4.1-5.6) x10^6/uL Hgb 15.2 (12.5-18.0) g/dL Hct 47.5 (42-50) % MCV 90.1 (78-100) fL MCH 28.8 (26-32) pg MCHC 32.0 (32-36) g/dL RDW 14.6 H (11.5-14.0) % Plt Count 257 (150-450) x10^3/uL MPV 9.2 (7.5-11.0) fL Gran % 46.8 (36.0-66.0) % Immature Gran % (Auto) 0.3 (0.00-0.4) % Nucleat RBC Rel Count 0.0 (0.00-0.1) % Eos # (Auto) 0.36 (0-0.5) x10^3/uL Immature Gran # (Auto) 0.01 (0.00-0.03) x10^3u/L Absolute Lymphs (auto) 0.87 L (1.0-4.6) x10^3/uL Absolute Monos (auto) 0.46 (0.0-1.3) x10^3/uL Absolute Nucleated RBC 0.00 (0.00-0.01) x10^3u/L Lymphocytes % 26.6 (24.0-44.0) % Monocytes % 14.1 H (0.0-12.0) % Eosinophils % 11.0 H (0.00-5.0) % Basophils % 1.2 (0.0-0.4) % Absolute Granulocytes 1.53 (1.4-6.9) x10^3/uL Basophils # 0.04 (0-0.4) x10^3/uL D-Dimer 0.22 (0.0-0.50) mg/L Sodium 136 (135-145) mmol/L Potassium 4.9 (3.5-5.1) mmol/L Chloride 111 H (98-107) mmol/L Carbon Dioxide 13 L* (22-30) mmol/L Anion Gap 16.0 H (5-15) MEQ/L BUN 29 H (9-20) mg/dL Creatinine 1.97 H (0.66-1.25) mg/dL Estimated GFR 35.2 ML/MIN Glucose 99 (74-106) mg/dL Calcium 9.5 (8.4-10.2) mg/dL Total Bilirubin 0.60 (0.2-1.3) mg/dL AST 32 (17-59) U/L ALT 27 (0-50) U/L Alkaline Phosphatase 112 (38-126) U/L Troponin I (0.000-0.034) ng/mL Serum Total Protein 9.7 H (6.3-8.2) g/dL Albumin 3.5 (3.5-5.0) g/dL 10/03/23 10/03/23 Range/Units 17:10 18:50 WBC (4.0-10.5) x10^3/uL RBC (4.1-5.6) x10^6/uL Hgb (12.5-18.0) g/dL Hct (42-50) % MCV (78-100) fL MCH (26-32) pg MCHC (32-36) g/dL RDW (11.5-14.0) % Plt Count (150-450) x10^3/uL MPV (7.5-11.0) fL Gran % (36.0-66.0) % Immature Gran % (Auto) (0.00-0.4) % Nucleat RBC Rel Count (0.00-0.1) % Eos # (Auto) (0-0.5) x10^3/uL Immature Gran # (Auto) (0.00-0.03) x10^3u/L Absolute Lymphs (auto) (1.0-4.6) x10^3/uL Absolute Monos (auto) (0.0-1.3) x10^3/uL Absolute Nucleated RBC (0.00-0.01) x10^3u/L Lymphocytes % (24.0-44.0) % Monocytes % (0.0-12.0) % Eosinophils % (0.00-5.0) % Basophils % (0.0-0.4) % Absolute Granulocytes (1.4-6.9) x10^3/uL Basophils # (0-0.4) x10^3/uL D-Dimer (0.0-0.50) mg/L Sodium (135-145) mmol/L Potassium (3.5-5.1) mmol/L Chloride (98-107) mmol/L Carbon Dioxide (22-30) mmol/L Anion Gap (5-15) MEQ/L BUN (9-20) mg/dL Creatinine (0.66-1.25) mg/dL Estimated GFR ML/MIN Glucose (74-106) mg/dL Calcium (8.4-10.2) mg/dL Total Bilirubin (0.2-1.3) mg/dL AST (17-59) U/L ALT (0-50) U/L Alkaline Phosphatase (38-126) U/L Troponin I < 0.012 < 0.012 (0.000-0.034) ng/mL Serum Total Protein (6.3-8.2) g/dL Albumin (3.5-5.0) g/dL - Radiology Impressions Radiology Exams & Impressions: Radiology Procedures Category Date Time Status CHEST 1 VIEW (PORTABLE) Stat Exams 10/03/23 20:01 Taken Assessment/Plan (1) Atrial fibrillation with RVR Current Visit: Yes Status: Acute Assessment & Plan: Atrial fibrillation with RVR - had been on Eliquis 1. Admit to hospital 2. Telemetry monitoring 3. Check TSH 4. Cardizem drip 5. Continue Eliquis for anticoagulation Code(s): I48.91 - UNSPECIFIED ATRIAL FIBRILLATION (2) Acute renal insufficiency Current Visit: No Status: Acute Assessment & Plan: Creatinine 1.97 likely from some mild prerenal azotemia and hemodynamic instability 1. Will start IVFs 2. Encourage PO intake 3. Defer ERIC/ARB 4. Renal u/s 5. Follow I/Os 6. Watch electrolytes, creatinine closely Code(s): N28.9 - DISORDER OF KIDNEY AND URETER, UNSPECIFIED (3) Acute metabolic acidosis Current Visit: Yes Status: Acute Assessment & Plan: Bicarb 13 likely secondary to SIERRA 1. IVFs with bicarb 2. Check lactic acid 3. ABG prn Code(s): E87.21 - ACUTE METABOLIC ACIDOSIS (4) Hypertensive chronic kidney disease with stage 1 through stage 4 chronic kidney disease, or unspecified chronic kidney disease Current Visit: Yes Status: Acute Assessment & Plan: Blood pressure initially low likely from afib and dehydration 1. Hold bp meds other than Cardizem drip 2. Low sodium diet 3. Monitor blood pressure readings Code(s): I12.9 - HYPERTENSIVE CHRONIC KIDNEY DISEASE W STG 1-4/UNSP CHR KDNY (5) Hypothyroidism Current Visit: Yes Status: Acute Code(s): E03.9 - HYPOTHYROIDISM, UNSPECIFIED Telemedicine Encounter - Telemedicine Encounter Telemedicine Encounter: The entirety of this encounter was performed via Telemedicine"
[2023-10-03] MEDS ORDERED: TYLENOL 325 MG PO PRN (21:36)
[2023-10-03] MEDS ORDERED: Dextrose 5%/Water IV Soln. 1000 ML 1,000 ML IV ONE (21:58)
[2023-10-03] MEDS ORDERED: SODIUM BICARBONATE 50 MEQ/50 ML ABBOJECT IV ONE (21:58)
[2023-10-03] MEDS: Sodium Bicarbonate 50 MEQ/50 ML VIAL*** 150 MEQ in Dextrose 5%/Water IV Soln. 1000 ML 1... IV SCH (22:25)
[2023-10-03] MEDS: ELIQUIS 2.5 MG TABLET PO SCH (22:27)
[2023-10-03] MEDS: Coreg 3.125 MG PO SCH (22:28)
[2023-10-04] MEDS: Sodium Chloride 0.9% 500 ML 500 ML IV ONE (00:41)
[2023-10-04 01:17] LABS: Absolute Neutrophil Ct (ANC) 2.02 x10^3/uL (1.4-6.9); BASOPHIL % 0.5 % (0.0-0.4); Basophil (Absolute #) 0.02 x10^3/uL (0-0.4); Eosinophil % 7.2 % (0.00-5.0); Hematocrit 41.4 % (42-50); Hemoglobin 13.6 g/dL (12.5-18.0); IMMATURE GRAN # 0.01 x10^3u/L (0.00-0.03); IMMATURE GRAN % 0.2 % (0.00-0.4); Lymphocyte (Absolute #) 1.15 x10^3/uL (1.0-4.6); Lymphocytes % 27.7 % (24.0-44.0); Mean Cell Volume 89.4 fL (78-100); Mean Corpuscular Hemoglobin 29.4 pg (26-32); Mean Corpuscular Hgb Concent. 32.9 g/dL (32-36); Mean Platelet Volume 9.3 fL (7.5-11.0); Monocyte (Absolute #) 0.65 x10^3/uL (0.0-1.3); Monocytes % 15.7 % (0.0-12.0); Neutrophil % 48.7 % (36.0-66.0); Platelet Count 238 x10^3/uL (150-450); Red Blood Count 4.63 x10^6/uL (4.1-5.6); Red Cell Distribution Width 14.6 % (11.5-14.0); White Blood Count 4.2 x10^3/uL (4.0-10.5)
[2023-10-04 01:37] LABS: ALBUMIN 2.6 g/dL (3.5-5.0); ANION GAP 12.2 MEQ/L (5-15); BILIRUBIN,TOTAL 0.4 mg/dL (0.2-1.3); Calcium 8.3 mg/dL (8.4-10.2); Creatinine 1 1.59 mg/dL (0.66-1.25); EST GLOMERULAR FILTRATION RATE 45.6 ML/MIN; Potassium 4.6 mmol/L (3.5-5.1); Total Protein 7.2 g/dL (6.3-8.2)
[2023-10-04 04:34] LABS: VBG BASE EXCESS -3.6 (-2.0-2.0); VBG CARBOXYHEMOGLOBIN 4.4 % T HGB (0.0-6.9); VBG HCO3- 16.7 meq/L (22-28); VBG O2 SATURATION 99.2 (95-100); VBG POTASSIUM 4.1 (3.5-5.1); VBG pH 7.53 (7.32-7.42)
[2023-10-04] MEDS: SYNTHROID 50 MCG PO SCH (07:50)
[2023-10-04 08:26] LABS: Cholesterol 121 mg/dL (50-200); HDL CHOLESTEROL 18 mg/dL (40-60); TRIGLYCERIDE 59 mg/dL (30-150)
--- NOTE | 2023-10-04 08:48 | XRAY ---
Indication: Short of breath. Comparison: November 15, 2021 Portable chest slightly less inflated crowding both lung bases with stable left base calcified granuloma. Remaining heart and lungs unremarkable. Bony thorax intact again with osteopenia and mild degenerative changes. Impression: Nonacute chest with chronic features.
[2023-10-04 08:57] LABS: Appearance Clear (Clear); Bacteria None Seen /HPF (None Seen); Bilirubin Negative (Negative); Blood Large (Negative); Epithelial Cells None Seen /HPF (None Seen); Glucose, Urine Negative (Negative); Hyaline Casts NONE SEEN /LPF (0-2); Ketones Negative (Negative); Leukocyte Esterase Trace (Negative); Nitrite Negative (Negative); Protein,Urine Dip Negative (Negative); RBC >100 /HPF (0-5); Urobilinogen 0.2 mg/dL (0.2); WBC 0-2 /HPF (0-5)
[2023-10-04] MEDS: Sodium Chloride 0.9% 250 ML 250 ML IV SCH (09:11)
[2023-10-04] MEDS: ECOTRIN 81 MG PO SCH (09:19)
[2023-10-04] MEDS: Protonix 40MG Tablet PO SCH (09:19)
[2023-10-04] MEDS: CLARITIN 10 MG PO SCH (09:20)
[2023-10-04] MEDS: Flomax 0.4 MG PO SCH (09:21)
[2023-10-04 09:24] LABS: ADD URINE CULTURE? YES (NO)
[2023-10-04] MEDS: Zofran 4 MG/2 ML VIAL IV PRN (10:55)
--- NOTE | 2023-10-04 10:57 | PCM.NOTE ---
Date and Time: 10/04/23 1021 Subjective Assessment: Mr. EASLEY is a 73 year old male with a past medical history significant for hypertension, atrial fibrillation, hypothyroidism and chronic renal insufficiency. He presented to the hospital with complaints of nausea, vomiting, dizziness, and palpitations on 10/03/23. Upon arrival, he was found to be in rapid afib with blood pressures in the 80s systolic. He was given IVFs, then started on Cardizem drip in ER. He is chronically anticoagulated with Eliquis and has been taking that medicine. No chest pain or shortness of breath. Initial labs were notable for a creatinine of 1.97 and bicarb of 13. Today Bicarb is improving at 17 with bicarb gtt at 70ml/hr. Echo ordered for today. Pt explained he recently saw Dr. Estrada and had a Lexiscan and echo OP. He also reports there was some abnormalities seen but has not f/u with him yet and was scheduled soon to discuss in the office. He reports he was recently dx with a-fib as well. However, he reports his HR has not been this fast until yesterday. Pt reports to me today that x1 month he has had hematuria. Hgb is stable at 13.6. UA with C&S ordered. Since pt had some SIERRA on admission a renal US was ordered. Pt appears to have acute on chronic renal failure but states he has never seen a syrup blender. After reviewing old records he is at baseline kidney function. He states a year ago a pocket was seen on his bladder and he had urinary retention and had a TURP procedure. Since taking Flomax and having the procedure he has had no problems until September 07 when hematuria began. Will also order US of bladder. Pt reports he had a bone marrow biopsy 2 weeks ago and is awaiting the results. He is having loose stools today and related labs ordered. He denies CP, SOB, Abd pain, V/D. - Review of Systems Constitutional: No Fever, No Chills Eyes: No Symptoms Ears, Nose, & Throat: No Symptoms Respiratory: No Cough, No Short Of Breath Cardiac: Palpitations, No Chest Pain, No Edema, No Syncope Abdominal/Gastrointestinal: Nausea, No Abdominal Pain, No Vomiting, No Diarrhea Genitourinary Symptoms: Hematuria, No Dysuria Musculoskeletal: No Back Pain, No Neck Pain Skin: No Rash Neurological: No Dizziness, No Focal Weakness, No Sensory Changes Psychological: No Symptoms Endocrine: No Symptoms Hematologic/Lymphatic: No Symptoms Immunological/Allergic: No Symptoms Objective Exam General Appearance: no apparent distress, alert Neurologic Exam: alert, oriented x 3, cooperative, normal mood/affect, nml cerebellar function, sensation nml, No motor deficits Skin Exam: normal color, warm, dry Eye Exam: PERRL, EOMI, eyes nml inspection Ears, Nose, Throat Exam: normal ENT inspection, pharynx normal, moist mucous membranes Neck Exam: normal inspection, non-tender, supple, full range of motion Respiratory Exam: normal breath sounds, lungs clear, No respiratory distress Cardiovascular Exam: normal heart sounds, irregular Gastrointestinal/Abdomen Exam: soft, No tenderness, No mass Extremity Exam: normal inspection, normal range of motion Back Exam: normal inspection, normal range of motion, No CVA tenderness, No vertebral tenderness Male Genitalia Exam: deferred Rectal Exam: deferred Objective Data Vital Signs: Vital Signs - 24 hr Temp Pulse Pulse Resp BP BP Pulse Ox 10/04/23 10:11 120 H 29 H 91/56 10/04/23 10:09 109 H 25 H 91/56 10/04/23 09:45 112 H 25 H 90/61 10/04/23 09:30 101 H 27 H 94/57 94 L 10/04/23 09:15 107 H 23 77/52 94 L 10/04/23 09:09 112 H 28 H 77/52 10/04/23 09:00 114 H 28 H 77/52 93 L 10/04/23 08:45 103 H 20 87/58 92 L 10/04/23 08:30 105 H 23 86/55 93 L 10/04/23 08:15 106 H 22 91/60 96 10/04/23 08:00 108 H 27 H 95/62 96 10/04/23 07:47 115 H 10/04/23 07:45 108 H 34 H 101/55 94 L 10/04/23 07:30 127 H 27 H 98/64 97 10/04/23 07:00 98.6 F 128 H 28 H 89/60 93 L 10/04/23 06:45 98.6 F 105 H 26 H 89/60 92 L 10/04/23 06:30 98.4 F 90 27 H 92/56 92 L 10/04/23 06:26 94 H 26 H 86/63 93 L 10/04/23 06:15 118 H 21 71/46 93 L 10/04/23 06:00 90 17 74/53 90 L 10/04/23 05:45 94 H 26 H 83/52 92 L 10/04/23 05:30 101 H 27 H 80/54 93 L 10/04/23 05:15 96 H 21 88/51 92 L 10/04/23 05:00 91 H 25 H 85/55 92 L 10/04/23 04:45 88 26 H 93 L 10/04/23 04:30 94 H 25 H 87/56 93 L 10/04/23 04:15 104 H 24 88/56 92 L 10/04/23 04:00 88 26 H 83/55 94 L 10/04/23 03:45 96 H 29 H 95/77 95 10/04/23 03:43 97 H 28 H 101/62 95 10/04/23 03:33 93 H 21 81/38 95 10/04/23 03:32 99 H 26 H 95/56 93 L 10/04/23 03:30 107 H 17 84/55 94 L 10/04/23 03:15 91 H 23 81/52 93 L 10/04/23 03:00 94 H 22 87/54 93 L 10/04/23 02:45 94 H 26 H 88/54 94 L 10/04/23 02:37 97 H 21 89/52 92 L 10/04/23 02:01 102 H 24 86/56 94 L 10/04/23 01:04 85 24 89/59 93 L 10/04/23 00:17 85 24 80/47 92 L 10/04/23 00:15 87 24 78/52 92 L 10/04/23 00:00 88 20 88/59 91 L 10/03/23 23:45 87 24 84/61 91 L 10/03/23 23:30 85 19 90/59 91 L 10/03/23 23:15 97 H 20 101/55 92 L 10/03/23 23:00 90 25 H 93/65 92 L 10/03/23 22:45 100 H 22 90/60 93 L 10/03/23 22:33 112 H 29 H 96/59 95 10/03/23 22:30 120 H 31 H 93 L 10/03/23 22:22 107 H 26 H 142/86 96 10/03/23 22:20 130 H 19 10/03/23 22:17 113 H 27 H 10/03/23 22:00 125 H 20 117/72 93 L 10/03/23 21:45 107 H 23 118/78 94 L 10/03/23 20:30 116 H 22 93/65 95 10/03/23 20:16 94 L 10/03/23 20:15 103 H 25 H 100/63 92 L 10/03/23 20:06 98.4 F 114 H 20 112/84 94 L 10/03/23 20:00 115 H 28 H 93/54 95 10/03/23 19:50 101 H 24 96/63 94 L 10/03/23 19:45 105 H 26 H 74/56 96 10/03/23 19:30 101 H 25 H 96/72 94 L 10/03/23 19:15 116 H 22 93/60 94 L 10/03/23 19:05 111 H 20 89/55 94 L 10/03/23 18:00 100 H 23 89/69 92 L 10/03/23 17:55 102 H 20 90/62 94 L 10/03/23 17:50 97 H 18 87/58 91 L 10/03/23 17:45 105 H 20 93/67 91 L 10/03/23 17:40 99 H 22 88/65 91 L 10/03/23 17:35 90 24 64/52 92 L 10/03/23 17:30 99 H 27 H 85/59 93 L 10/03/23 17:25 98 H 25 H 81/53 92 L 10/03/23 17:24 97 H 25 H 74/50 93 L 10/03/23 17:23 92 L 10/03/23 17:20 87 24 92 L 10/03/23 17:10 108 H 19 93 L 10/03/23 17:03 101 H 22 92 L 10/03/23 16:55 179 H 25 H 92 L 10/03/23 16:44 150 H 10/03/23 16:41 97.5 F 147 H 18 86/48 94 L Pain Assessment - Last Documented Pain Intensity 0 Intake and Output: Intake & Output 10/01/23 10/02/23 10/03/23 10/04/23 11:59 11:59 11:59 11:59 Intake Total 60 Balance 60 Weight 58.1 kg Lab Results: Lab Results-Last 24 Hours 10/03/23 10/03/23 10/03/23 Range/Units 17:10 17:10 17:10 WBC 3.3 L (4.0-10.5) x10^3/uL RBC 5.27 (4.1-5.6) x10^6/uL Hgb 15.2 (12.5-18.0) g/dL Hct 47.5 (42-50) % MCV 90.1 (78-100) fL MCH 28.8 (26-32) pg MCHC 32.0 (32-36) g/dL RDW 14.6 H (11.5-14.0) % Plt Count 257 (150-450) x10^3/uL MPV 9.2 (7.5-11.0) fL Gran % 46.8 (36.0-66.0) % Immature Gran % (Auto) 0.3 (0.00-0.4) % Nucleat RBC Rel Count 0.0 (0.00-0.1) % Eos # (Auto) 0.36 (0-0.5) x10^3/uL Immature Gran # (Auto) 0.01 (0.00-0.03) x10^3u/L Absolute Lymphs (auto) 0.87 L (1.0-4.6) x10^3/uL Absolute Monos (auto) 0.46 (0.0-1.3) x10^3/uL Absolute Nucleated RBC 0.00 (0.00-0.01) x10^3u/L Lymphocytes % 26.6 (24.0-44.0) % Monocytes % 14.1 H (0.0-12.0) % Eosinophils % 11.0 H (0.00-5.0) % Basophils % 1.2 (0.0-0.4) % Absolute Granulocytes 1.53 (1.4-6.9) x10^3/uL Basophils # 0.04 (0-0.4) x10^3/uL D-Dimer 0.22 (0.0-0.50) mg/L pO2/FiO2 Ratio % VBG pH (7.32-7.42) VBG pCO2 at Pat Temp (42-55) mm/Hg VBG pO2 at Pat Temp (25-40) mm/Hg VBG HCO3 (22-28) meq/L VBG O2 Sat (Yuni) (95-100) VBG Base Excess (-2.0-2.0) VBG Hemoglobin VBG Carboxyhemoglobin (0.0-6.9) % T HGB POC Potassium (3.5-5.1) Sodium 136 (135-145) mmol/L Potassium 4.9 (3.5-5.1) mmol/L Chloride 111 H (98-107) mmol/L Carbon Dioxide 13 L* (22-30) mmol/L Anion Gap 16.0 H (5-15) MEQ/L BUN 29 H (9-20) mg/dL Creatinine 1.97 H (0.66-1.25) mg/dL Estimated GFR 35.2 ML/MIN Glucose 99 (74-106) mg/dL Calcium 9.5 (8.4-10.2) mg/dL Magnesium (1.6-2.3) mg/dL Total Bilirubin 0.60 (0.2-1.3) mg/dL AST 32 (17-59) U/L ALT 27 (0-50) U/L Alkaline Phosphatase 112 (38-126) U/L Troponin I (0.000-0.034) ng/mL Serum Total Protein 9.7 H (6.3-8.2) g/dL Albumin 3.5 (3.5-5.0) g/dL Triglycerides (30-150) mg/dL Cholesterol (50-200) mg/dL HDL Cholesterol (40-60) mg/dL Heart Disease Risk Ratio TSH 3rd Generation (0.47-4.68) mIU/L Urine Color (Yellow) Urine Appearance (Clear) Urine pH (4.6-8.0) Ur Specific Galt (1.005-1.030) Urine Protein (Negative) Urine Glucose (UA) (Negative) mg/dL Urine Ketones (Negative) Urine Blood (Negative) Urine Nitrite (Negative) Urine Bilirubin (Negative) Urine Urobilinogen (0.2) mg/dL Ur Leukocyte Esterase (Negative) U Hyaline Cast (Auto) (0-2) /LPF Urine Microscopic RBC (0-5) /HPF Urine Microscopic WBC (0-5) /HPF Ur Epithelial Cells (None Seen) /HPF Urine Bacteria (None Seen) /HPF Urine Culture Reflexed (NO) 10/03/23 10/03/23 10/04/23 Range/Units 17:10 18:50 01:15 WBC (4.0-10.5) x10^3/uL RBC (4.1-5.6) x10^6/uL Hgb (12.5-18.0) g/dL Hct (42-50) % MCV (78-100) fL MCH (26-32) pg MCHC (32-36) g/dL RDW (11.5-14.0) % Plt Count (150-450) x10^3/uL MPV (7.5-11.0) fL Gran % (36.0-66.0) % Immature Gran % (Auto) (0.00-0.4) % Nucleat RBC Rel Count (0.00-0.1) % Eos # (Auto) (0-0.5) x10^3/uL Immature Gran # (Auto) (0.00-0.03) x10^3u/L Absolute Lymphs (auto) (1.0-4.6) x10^3/uL Absolute Monos (auto) (0.0-1.3) x10^3/uL Absolute Nucleated RBC (0.00-0.01) x10^3u/L Lymphocytes % (24.0-44.0) % Monocytes % (0.0-12.0) % Eosinophils % (0.00-5.0) % Basophils % (0.0-0.4) % Absolute Granulocytes (1.4-6.9) x10^3/uL Basophils # (0-0.4) x10^3/uL D-Dimer (0.0-0.50) mg/L pO2/FiO2 Ratio % VBG pH (7.32-7.42) VBG pCO2 at Pat Temp (42-55) mm/Hg VBG pO2 at Pat Temp (25-40) mm/Hg VBG HCO3 (22-28) meq/L VBG O2 Sat (Yuni) (95-100) VBG Base Excess (-2.0-2.0) VBG Hemoglobin VBG Carboxyhemoglobin (0.0-6.9) % T HGB POC Potassium (3.5-5.1) Sodium (135-145) mmol/L Potassium (3.5-5.1) mmol/L Chloride (98-107) mmol/L Carbon Dioxide (22-30) mmol/L Anion Gap (5-15) MEQ/L BUN (9-20) mg/dL Creatinine (0.66-1.25) mg/dL Estimated GFR ML/MIN Glucose (74-106) mg/dL Calcium (8.4-10.2) mg/dL Magnesium (1.6-2.3) mg/dL Total Bilirubin (0.2-1.3) mg/dL AST (17-59) U/L ALT (0-50) U/L Alkaline Phosphatase (38-126) U/L Troponin I < 0.012 < 0.012 0.019 (0.000-0.034) ng/mL Serum Total Protein (6.3-8.2) g/dL Albumin (3.5-5.0) g/dL Triglycerides (30-150) mg/dL Cholesterol (50-200) mg/dL HDL Cholesterol (40-60) mg/dL Heart Disease Risk Ratio TSH 3rd Generation (0.47-4.68) mIU/L Urine Color (Yellow) Urine Appearance (Clear) Urine pH (4.6-8.0) Ur Specific Galt (1.005-1.030) Urine Protein (Negative) Urine Glucose (UA) (Negative) mg/dL Urine Ketones (Negative) Urine Blood (Negative) Urine Nitrite (Negative) Urine Bilirubin (Negative) Urine Urobilinogen (0.2) mg/dL Ur Leukocyte Esterase (Negative) U Hyaline Cast (Auto) (0-2) /LPF Urine Microscopic RBC (0-5) /HPF Urine Microscopic WBC (0-5) /HPF Ur Epithelial Cells (None Seen) /HPF Urine Bacteria (None Seen) /HPF Urine Culture Reflexed (NO) 10/04/23 10/04/23 10/04/23 Range/Units 01:15 01:15 01:15 WBC 4.2 (4.0-10.5) x10^3/uL RBC 4.63 (4.1-5.6) x10^6/uL Hgb 13.6 (12.5-18.0) g/dL Hct 41.4 L (42-50) % MCV 89.4 (78-100) fL MCH 29.4 (26-32) pg MCHC 32.9 (32-36) g/dL RDW 14.6 H (11.5-14.0) % Plt Count 238 (150-450) x10^3/uL MPV 9.3 (7.5-11.0) fL Gran % 48.7 (36.0-66.0) % Immature Gran % (Auto) 0.2 (0.00-0.4) % Nucleat RBC Rel Count 0.0 (0.00-0.1) % Eos # (Auto) 0.30 (0-0.5) x10^3/uL Immature Gran # (Auto) 0.01 (0.00-0.03) x10^3u/L Absolute Lymphs (auto) 1.15 (1.0-4.6) x10^3/uL Absolute Monos (auto) 0.65 (0.0-1.3) x10^3/uL Absolute Nucleated RBC 0.00 (0.00-0.01) x10^3u/L Lymphocytes % 27.7 (24.0-44.0) % Monocytes % 15.7 H (0.0-12.0) % Eosinophils % 7.2 H (0.00-5.0) % Basophils % 0.5 (0.0-0.4) % Absolute Granulocytes 2.02 (1.4-6.9) x10^3/uL Basophils # 0.02 (0-0.4) x10^3/uL D-Dimer (0.0-0.50) mg/L pO2/FiO2 Ratio % VBG pH (7.32-7.42) VBG pCO2 at Pat Temp (42-55) mm/Hg VBG pO2 at Pat Temp (25-40) mm/Hg VBG HCO3 (22-28) meq/L VBG O2 Sat (Yuni) (95-100) VBG Base Excess (-2.0-2.0) VBG Hemoglobin VBG Carboxyhemoglobin (0.0-6.9) % T HGB POC Potassium (3.5-5.1) Sodium 138 (135-145) mmol/L Potassium 4.6 (3.5-5.1) mmol/L Chloride 114 H (98-107) mmol/L Carbon Dioxide 17 L (22-30) mmol/L Anion Gap 12.2 (5-15) MEQ/L BUN 28 H (9-20) mg/dL Creatinine 1.59 H (0.66-1.25) mg/dL Estimated GFR 45.6 ML/MIN Glucose 109 H (74-106) mg/dL Calcium 8.3 L (8.4-10.2) mg/dL Magnesium (1.6-2.3) mg/dL Total Bilirubin 0.40 (0.2-1.3) mg/dL AST 25 (17-59) U/L ALT 19 (0-50) U/L Alkaline Phosphatase 87 (38-126) U/L Troponin I (0.000-0.034) ng/mL Serum Total Protein 7.2 (6.3-8.2) g/dL Albumin 2.6 L (3.5-5.0) g/dL Triglycerides (30-150) mg/dL Cholesterol (50-200) mg/dL HDL Cholesterol (40-60) mg/dL Heart Disease Risk Ratio TSH 3rd Generation 0.649 (0.47-4.68) mIU/L Urine Color (Yellow) Urine Appearance (Clear) Urine pH (4.6-8.0) Ur Specific Galt (1.005-1.030) Urine Protein (Negative) Urine Glucose (UA) (Negative) mg/dL Urine Ketones (Negative) Urine Blood (Negative) Urine Nitrite (Negative) Urine Bilirubin (Negative) Urine Urobilinogen (0.2) mg/dL Ur Leukocyte Esterase (Negative) U Hyaline Cast (Auto) (0-2) /LPF Urine Microscopic RBC (0-5) /HPF Urine Microscopic WBC (0-5) /HPF Ur Epithelial Cells (None Seen) /HPF Urine Bacteria (None Seen) /HPF Urine Culture Reflexed (NO) 10/04/23 10/04/23 10/04/23 Range/Units 01:15 01:15 04:09 WBC (4.0-10.5) x10^3/uL RBC (4.1-5.6) x10^6/uL Hgb (12.5-18.0) g/dL Hct (42-50) % MCV (78-100) fL MCH (26-32) pg MCHC (32-36) g/dL RDW (11.5-14.0) % Plt Count (150-450) x10^3/uL MPV (7.5-11.0) fL Gran % (36.0-66.0) % Immature Gran % (Auto) (0.00-0.4) % Nucleat RBC Rel Count (0.00-0.1) % Eos # (Auto) (0-0.5) x10^3/uL Immature Gran # (Auto) (0.00-0.03) x10^3u/L Absolute Lymphs (auto) (1.0-4.6) x10^3/uL Absolute Monos (auto) (0.0-1.3) x10^3/uL Absolute Nucleated RBC (0.00-0.01) x10^3u/L Lymphocytes % (24.0-44.0) % Monocytes % (0.0-12.0) % Eosinophils % (0.00-5.0) % Basophils % (0.0-0.4) % Absolute Granulocytes (1.4-6.9) x10^3/uL Basophils # (0-0.4) x10^3/uL D-Dimer (0.0-0.50) mg/L pO2/FiO2 Ratio 21.0 % VBG pH 7.53 H (7.32-7.42) VBG pCO2 at Pat Temp 20 L* (42-55) mm/Hg VBG pO2 at Pat Temp 117 H (25-40) mm/Hg VBG HCO3 16.7 L* (22-28) meq/L VBG O2 Sat (Yuni) 99.2 (95-100) VBG Base Excess -3.6 L (-2.0-2.0) VBG Hemoglobin 14.0 VBG Carboxyhemoglobin 4.4 (0.0-6.9) % T HGB POC Potassium 4.1 (3.5-5.1) Sodium (135-145) mmol/L Potassium (3.5-5.1) mmol/L Chloride (98-107) mmol/L Carbon Dioxide (22-30) mmol/L Anion Gap (5-15) MEQ/L BUN (9-20) mg/dL Creatinine (0.66-1.25) mg/dL Estimated GFR ML/MIN Glucose (74-106) mg/dL Calcium (8.4-10.2) mg/dL Magnesium 1.9 (1.6-2.3) mg/dL Total Bilirubin (0.2-1.3) mg/dL AST (17-59) U/L ALT (0-50) U/L Alkaline Phosphatase (38-126) U/L Troponin I (0.000-0.034) ng/mL Serum Total Protein (6.3-8.2) g/dL Albumin (3.5-5.0) g/dL Triglycerides 59 (30-150) mg/dL Cholesterol 121 (50-200) mg/dL HDL Cholesterol 18 L (40-60) mg/dL Heart Disease Risk Ratio 7.0 TSH 3rd Generation (0.47-4.68) mIU/L Urine Color (Yellow) Urine Appearance (Clear) Urine pH (4.6-8.0) Ur Specific Galt (1.005-1.030) Urine Protein (Negative) Urine Glucose (UA) (Negative) mg/dL Urine Ketones (Negative) Urine Blood (Negative) Urine Nitrite (Negative) Urine Bilirubin (Negative) Urine Urobilinogen (0.2) mg/dL Ur Leukocyte Esterase (Negative) U Hyaline Cast (Auto) (0-2) /LPF Urine Microscopic RBC (0-5) /HPF Urine Microscopic WBC (0-5) /HPF Ur Epithelial Cells (None Seen) /HPF Urine Bacteria (None Seen) /HPF Urine Culture Reflexed (NO) 10/04/23 Range/Units 07:43 WBC (4.0-10.5) x10^3/uL RBC (4.1-5.6) x10^6/uL Hgb (12.5-18.0) g/dL Hct (42-50) % MCV (78-100) fL MCH (26-32) pg MCHC (32-36) g/dL RDW (11.5-14.0) % Plt Count (150-450) x10^3/uL MPV (7.5-11.0) fL Gran % (36.0-66.0) % Immature Gran % (Auto) (0.00-0.4) % Nucleat RBC Rel Count (0.00-0.1) % Eos # (Auto) (0-0.5) x10^3/uL Immature Gran # (Auto) (0.00-0.03) x10^3u/L Absolute Lymphs (auto) (1.0-4.6) x10^3/uL Absolute Monos (auto) (0.0-1.3) x10^3/uL Absolute Nucleated RBC (0.00-0.01) x10^3u/L Lymphocytes % (24.0-44.0) % Monocytes % (0.0-12.0) % Eosinophils % (0.00-5.0) % Basophils % (0.0-0.4) % Absolute Granulocytes (1.4-6.9) x10^3/uL Basophils # (0-0.4) x10^3/uL D-Dimer (0.0-0.50) mg/L pO2/FiO2 Ratio % VBG pH (7.32-7.42) VBG pCO2 at Pat Temp (42-55) mm/Hg VBG pO2 at Pat Temp (25-40) mm/Hg VBG HCO3 (22-28) meq/L VBG O2 Sat (Yuni) (95-100) VBG Base Excess (-2.0-2.0) VBG Hemoglobin VBG Carboxyhemoglobin (0.0-6.9) % T HGB POC Potassium (3.5-5.1) Sodium (135-145) mmol/L Potassium (3.5-5.1) mmol/L Chloride (98-107) mmol/L Carbon Dioxide (22-30) mmol/L Anion Gap (5-15) MEQ/L BUN (9-20) mg/dL Creatinine (0.66-1.25) mg/dL Estimated GFR ML/MIN Glucose (74-106) mg/dL Calcium (8.4-10.2) mg/dL Magnesium (1.6-2.3) mg/dL Total Bilirubin (0.2-1.3) mg/dL AST (17-59) U/L ALT (0-50) U/L Alkaline Phosphatase (38-126) U/L Troponin I (0.000-0.034) ng/mL Serum Total Protein (6.3-8.2) g/dL Albumin (3.5-5.0) g/dL Triglycerides (30-150) mg/dL Cholesterol (50-200) mg/dL HDL Cholesterol (40-60) mg/dL Heart Disease Risk Ratio TSH 3rd Generation (0.47-4.68) mIU/L Urine Color Yellow (Yellow) Urine Appearance Clear (Clear) Urine pH 6.0 (4.6-8.0) Ur Specific Galt 1.010 (1.005-1.030) Urine Protein Negative (Negative) Urine Glucose (UA) Negative (Negative) mg/dL Urine Ketones Negative (Negative) Urine Blood Large A (Negative) Urine Nitrite Negative (Negative) Urine Bilirubin Negative (Negative) Urine Urobilinogen 0.2 (0.2) mg/dL Ur Leukocyte Esterase Trace A (Negative) U Hyaline Cast (Auto) NONE SEEN (0-2) /LPF Urine Microscopic RBC >100 A (0-5) /HPF Urine Microscopic WBC 0-2 (0-5) /HPF Ur Epithelial Cells None Seen (None Seen) /HPF Urine Bacteria None Seen (None Seen) /HPF Urine Culture Reflexed YES (NO) Radiology Exams: Radiology Procedures Category Date Time Status CHEST 1 VIEW (PORTABLE) Stat Exams 10/03/23 20:01 Completed ECHO W/2D AND DOPPLER [US] Routine Exams 10/04/23 07:36 Ordered ECHO W/2D AND DOPPLER [US] Routine Exams 10/04/23 07:36 Stop Req KIDNEY [US] Routine Exams 10/04/23 09:42 Ordered Assessment/Plan (1) Acute metabolic acidosis Current Visit: Yes Status: Acute Code(s): E87.21 - ACUTE METABOLIC ACIDOSIS (2) Atrial fibrillation with RVR Current Visit: Yes Status: Acute Code(s): I48.91 - UNSPECIFIED ATRIAL FIBRILLATION
[2023-10-04 11:08] LABS: 027 TOX PROD PRESUMPTIVE NEGATIVE (NEGATIVE); TOXIGENIC C. DIFF ORG NEGATIVE (NEGATIVE)
--- NOTE | 2023-10-04 11:26 | XRAY ---
Indication: Acute kidney injury. Two-dimensional renal sonogram performed. Comparison: None Both kidneys normal in reniform shape with normal color perfusion. Right kidney measures 10.0 x 4.1 x 4.2 cm and left measures 9.4 x 6.4 x 4.5 cm. 1.2 cm right upper and 2.3 cm left mid renal cortical cysts. No suspicious solid renal mass or hydronephrosis. Cortical medullary differentiation preserved. Mildly distended urinary bladder is irregular in shape. Normal bilateral ureteral jets. Prevoid bladder volume is 139 cc. Post void volume is 216 cc as patient was unable to void. Impression: 1. Solitary benign appearing cyst in each kidney. 2. Irregular shaped urinary bladder. Patient unable to void. Cystogram or cystoscopy may yield further information.
[2023-10-04] MEDS: Lanoxin 0.5 MG/2 ML INJECTION IV ONE (11:32)
--- NOTE | 2023-10-04 11:39 | PCM.DS ---
Discharge Summary Date of Admission: 10/03/23 20:04 Date of Discharge: 10/04/23 Admitting Physician: ISHAN CALDERON MD Primary Care Provider: JERONIMO SANTACRUZ Allergies Allergies No Known Drug Allergies Allergy (Verified 10/03/23 21:01) Hospital Summary - Hospital Course Hospital Course: Mr. EASLEY is a 73 year old male with a past medical history significant for hypertension, atrial fibrillation, hypothyroidism and chronic renal insufficiency. He presented to the hospital with complaints of nausea, vomiting, dizziness, and palpitations on 10/03/23. Upon arrival, he was found to be in rapid afib with blood pressures in the 80s systolic. He was given IVFs, then started on Cardizem drip in ER. He is chronically anticoagulated with Eliquis and has been taking that medicine. No chest pain or shortness of breath. Initial labs were notable for a creatinine of 1.97 and bicarb of 13. Today Bicarb is improving at 17 with bicarb gtt at 70ml/hr. Echo ordered for today. Pt explained he recently saw Dr. Estrada and had a Lexiscan and echo OP. He also reports there was some abnormalities seen but has not f/u with him yet and was scheduled soon to discuss in the office. He reports he was recently dx with a-fib as well. However, he reports his HR has not been this fast until yesterday. Pt reports to me today that x1 month he has had hematuria. Hgb is stable at 13.6. UA with C&S ordered. Since pt had some SIERRA on admission a renal US was ordered. Pt appears to have acute on chronic renal failure but states he has never seen a polysomnography technician. After reviewing old records he is at baseline kidney function. He states a year ago a pocket was seen on his bladder and he had urinary retention and had a TURP procedure. Since taking Flomax and having the procedure he has had no problems until September 07 when hematuria began. Will also order US of bladder. Pt reports he had a bone marrow biopsy 2 weeks ago and is awaiting the results for a blood disorder. Pt's oncologist is Dr. Wynn. He is having loose stools today and related labs ordered. He denies CP, SOB, Abd pain, V/D. EF 51% per machine shop repair technician. Discussed pt case with Dr. Conteh. He advised to give digoxin now and in 6 hours. He also advised possible transfer to [facility] as pt has ongoing hypotension with af-fib RVR. Levophed gtt started. Discussed pt case with Dr. Escalona who is agreeable to transfer to higher level of care for uncontrolled af-fib RVR with hypotension. - Vitals & Intake/Output Vital Signs: Vital Signs Temperature 98.6 F 10/04/23 07:00 Pulse Rate 125 H 10/04/23 11:02 Respiratory Rate 23 10/04/23 11:02 Blood Pressure 78/52 10/04/23 11:02 O2 Sat by Pulse Oximetry 94 L 10/04/23 11:01 Intake & Output: Intake & Output 10/01/23 10/02/23 10/03/23 10/04/23 11:59 11:59 11:59 11:59 Intake Total 60 Balance 60 Weight 58.1 kg - Lab Result Diagrams: 10/04/23 01:15 10/04/23 01:15 Lab Results-Last 24 Hrs: Lab Results-Last 24 Hours 10/03/23 10/03/23 10/03/23 Range/Units 17:10 17:10 17:10 WBC 3.3 L (4.0-10.5) x10^3/uL RBC 5.27 (4.1-5.6) x10^6/uL Hgb 15.2 (12.5-18.0) g/dL Hct 47.5 (42-50) % MCV 90.1 (78-100) fL MCH 28.8 (26-32) pg MCHC 32.0 (32-36) g/dL RDW 14.6 H (11.5-14.0) % Plt Count 257 (150-450) x10^3/uL MPV 9.2 (7.5-11.0) fL Gran % 46.8 (36.0-66.0) % Immature Gran % (Auto) 0.3 (0.00-0.4) % Nucleat RBC Rel Count 0.0 (0.00-0.1) % Eos # (Auto) 0.36 (0-0.5) x10^3/uL Immature Gran # (Auto) 0.01 (0.00-0.03) x10^3u/L Absolute Lymphs (auto) 0.87 L (1.0-4.6) x10^3/uL Absolute Monos (auto) 0.46 (0.0-1.3) x10^3/uL Absolute Nucleated RBC 0.00 (0.00-0.01) x10^3u/L Lymphocytes % 26.6 (24.0-44.0) % Monocytes % 14.1 H (0.0-12.0) % Eosinophils % 11.0 H (0.00-5.0) % Basophils % 1.2 (0.0-0.4) % Absolute Granulocytes 1.53 (1.4-6.9) x10^3/uL Basophils # 0.04 (0-0.4) x10^3/uL D-Dimer 0.22 (0.0-0.50) mg/L pO2/FiO2 Ratio % VBG pH (7.32-7.42) VBG pCO2 at Pat Temp (42-55) mm/Hg VBG pO2 at Pat Temp (25-40) mm/Hg VBG HCO3 (22-28) meq/L VBG O2 Sat (Yuni) (95-100) VBG Base Excess (-2.0-2.0) VBG Hemoglobin VBG Carboxyhemoglobin (0.0-6.9) % T HGB POC Potassium (3.5-5.1) Sodium 136 (135-145) mmol/L Potassium 4.9 (3.5-5.1) mmol/L Chloride 111 H (98-107) mmol/L Carbon Dioxide 13 L* (22-30) mmol/L Anion Gap 16.0 H (5-15) MEQ/L BUN 29 H (9-20) mg/dL Creatinine 1.97 H (0.66-1.25) mg/dL Estimated GFR 35.2 ML/MIN Glucose 99 (74-106) mg/dL Calcium 9.5 (8.4-10.2) mg/dL Magnesium (1.6-2.3) mg/dL Total Bilirubin 0.60 (0.2-1.3) mg/dL AST 32 (17-59) U/L ALT 27 (0-50) U/L Alkaline Phosphatase 112 (38-126) U/L Troponin I (0.000-0.034) ng/mL Serum Total Protein 9.7 H (6.3-8.2) g/dL Albumin 3.5 (3.5-5.0) g/dL Triglycerides (30-150) mg/dL Cholesterol (50-200) mg/dL HDL Cholesterol (40-60) mg/dL Heart Disease Risk Ratio TSH 3rd Generation (0.47-4.68) mIU/L Urine Color (Yellow) Urine Appearance (Clear) Urine pH (4.6-8.0) Ur Specific [place] (1.005-1.030) Urine Protein (Negative) Urine Glucose (UA) (Negative) mg/dL Urine Ketones (Negative) Urine Blood (Negative) Urine Nitrite (Negative) Urine Bilirubin (Negative) Urine Urobilinogen (0.2) mg/dL Ur Leukocyte Esterase (Negative) U Hyaline Cast (Auto) (0-2) /LPF Urine Microscopic RBC (0-5) /HPF Urine Microscopic WBC (0-5) /HPF Ur Epithelial Cells (None Seen) /HPF Urine Bacteria (None Seen) /HPF Urine Culture Reflexed (NO) C. difficile Screen (NEGATIVE) C.difficile 027-NAP1-B1 (NEGATIVE) 10/03/23 10/03/23 10/04/23 Range/Units 17:10 18:50 01:15 WBC (4.0-10.5) x10^3/uL RBC (4.1-5.6) x10^6/uL Hgb (12.5-18.0) g/dL Hct (42-50) % MCV (78-100) fL MCH (26-32) pg MCHC (32-36) g/dL RDW (11.5-14.0) % Plt Count (150-450) x10^3/uL MPV (7.5-11.0) fL Gran % (36.0-66.0) % Immature Gran % (Auto) (0.00-0.4) % Nucleat RBC Rel Count (0.00-0.1) % Eos # (Auto) (0-0.5) x10^3/uL Immature Gran # (Auto) (0.00-0.03) x10^3u/L Absolute Lymphs (auto) (1.0-4.6) x10^3/uL Absolute Monos (auto) (0.0-1.3) x10^3/uL Absolute Nucleated RBC (0.00-0.01) x10^3u/L Lymphocytes % (24.0-44.0) % Monocytes % (0.0-12.0) % Eosinophils % (0.00-5.0) % Basophils % (0.0-0.4) % Absolute Granulocytes (1.4-6.9) x10^3/uL Basophils # (0-0.4) x10^3/uL D-Dimer (0.0-0.50) mg/L pO2/FiO2 Ratio % VBG pH (7.32-7.42) VBG pCO2 at Pat Temp (42-55) mm/Hg VBG pO2 at Pat Temp (25-40) mm/Hg VBG HCO3 (22-28) meq/L VBG O2 Sat (Yuni) (95-100) VBG Base Excess (-2.0-2.0) VBG Hemoglobin VBG Carboxyhemoglobin (0.0-6.9) % T HGB POC Potassium (3.5-5.1) Sodium (135-145) mmol/L Potassium (3.5-5.1) mmol/L Chloride (98-107) mmol/L Carbon Dioxide (22-30) mmol/L Anion Gap (5-15) MEQ/L BUN (9-20) mg/dL Creatinine (0.66-1.25) mg/dL Estimated GFR ML/MIN Glucose (74-106) mg/dL Calcium (8.4-10.2) mg/dL Magnesium (1.6-2.3) mg/dL Total Bilirubin (0.2-1.3) mg/dL AST (17-59) U/L ALT (0-50) U/L Alkaline Phosphatase (38-126) U/L Troponin I < 0.012 < 0.012 0.019 (0.000-0.034) ng/mL Serum Total Protein (6.3-8.2) g/dL Albumin (3.5-5.0) g/dL Triglycerides (30-150) mg/dL Cholesterol (50-200) mg/dL HDL Cholesterol (40-60) mg/dL Heart Disease Risk Ratio TSH 3rd Generation (0.47-4.68) mIU/L Urine Color (Yellow) Urine Appearance (Clear) Urine pH (4.6-8.0) Ur Specific [place] (1.005-1.030) Urine Protein (Negative) Urine Glucose (UA) (Negative) mg/dL Urine Ketones (Negative) Urine Blood (Negative) Urine Nitrite (Negative) Urine Bilirubin (Negative) Urine Urobilinogen (0.2) mg/dL Ur Leukocyte Esterase (Negative) U Hyaline Cast (Auto) (0-2) /LPF Urine Microscopic RBC (0-5) /HPF Urine Microscopic WBC (0-5) /HPF Ur Epithelial Cells (None Seen) /HPF Urine Bacteria (None Seen) /HPF Urine Culture Reflexed (NO) C. difficile Screen (NEGATIVE) C.difficile 027-NAP1-B1 (NEGATIVE) 10/04/23 10/04/23 10/04/23 Range/Units 01:15 01:15 01:15 WBC 4.2 (4.0-10.5) x10^3/uL RBC 4.63 (4.1-5.6) x10^6/uL Hgb 13.6 (12.5-18.0) g/dL Hct 41.4 L (42-50) % MCV 89.4 (78-100) fL MCH 29.4 (26-32) pg MCHC 32.9 (32-36) g/dL RDW 14.6 H (11.5-14.0) % Plt Count 238 (150-450) x10^3/uL MPV 9.3 (7.5-11.0) fL Gran % 48.7 (36.0-66.0) % Immature Gran % (Auto) 0.2 (0.00-0.4) % Nucleat RBC Rel Count 0.0 (0.00-0.1) % Eos # (Auto) 0.30 (0-0.5) x10^3/uL Immature Gran # (Auto) 0.01 (0.00-0.03) x10^3u/L Absolute Lymphs (auto) 1.15 (1.0-4.6) x10^3/uL Absolute Monos (auto) 0.65 (0.0-1.3) x10^3/uL Absolute Nucleated RBC 0.00 (0.00-0.01) x10^3u/L Lymphocytes % 27.7 (24.0-44.0) % Monocytes % 15.7 H (0.0-12.0) % Eosinophils % 7.2 H (0.00-5.0) % Basophils % 0.5 (0.0-0.4) % Absolute Granulocytes 2.02 (1.4-6.9) x10^3/uL Basophils # 0.02 (0-0.4) x10^3/uL D-Dimer (0.0-0.50) mg/L pO2/FiO2 Ratio % VBG pH (7.32-7.42) VBG pCO2 at Pat Temp (42-55) mm/Hg VBG pO2 at Pat Temp (25-40) mm/Hg VBG HCO3 (22-28) meq/L VBG O2 Sat (Yuni) (95-100) VBG Base Excess (-2.0-2.0) VBG Hemoglobin VBG Carboxyhemoglobin (0.0-6.9) % T HGB POC Potassium (3.5-5.1) Sodium 138 (135-145) mmol/L Potassium 4.6 (3.5-5.1) mmol/L Chloride 114 H (98-107) mmol/L Carbon Dioxide 17 L (22-30) mmol/L Anion Gap 12.2 (5-15) MEQ/L BUN 28 H (9-20) mg/dL Creatinine 1.59 H (0.66-1.25) mg/dL Estimated GFR 45.6 ML/MIN Glucose 109 H (74-106) mg/dL Calcium 8.3 L (8.4-10.2) mg/dL Magnesium (1.6-2.3) mg/dL Total Bilirubin 0.40 (0.2-1.3) mg/dL AST 25 (17-59) U/L ALT 19 (0-50) U/L Alkaline Phosphatase 87 (38-126) U/L Troponin I (0.000-0.034) ng/mL Serum Total Protein 7.2 (6.3-8.2) g/dL Albumin 2.6 L (3.5-5.0) g/dL Triglycerides (30-150) mg/dL Cholesterol (50-200) mg/dL HDL Cholesterol (40-60) mg/dL Heart Disease Risk Ratio TSH 3rd Generation 0.649 (0.47-4.68) mIU/L Urine Color (Yellow) Urine Appearance (Clear) Urine pH (4.6-8.0) Ur Specific [place] (1.005-1.030) Urine Protein (Negative) Urine Glucose (UA) (Negative) mg/dL Urine Ketones (Negative) Urine Blood (Negative) Urine Nitrite (Negative) Urine Bilirubin (Negative) Urine Urobilinogen (0.2) mg/dL Ur Leukocyte Esterase (Negative) U Hyaline Cast (Auto) (0-2) /LPF Urine Microscopic RBC (0-5) /HPF Urine Microscopic WBC (0-5) /HPF Ur Epithelial Cells (None Seen) /HPF Urine Bacteria (None Seen) /HPF Urine Culture Reflexed (NO) C. difficile Screen (NEGATIVE) C.difficile 027-NAP1-B1 (NEGATIVE) 10/04/23 10/04/23 10/04/23 Range/Units 01:15 01:15 04:09 WBC (4.0-10.5) x10^3/uL RBC (4.1-5.6) x10^6/uL Hgb (12.5-18.0) g/dL Hct (42-50) % MCV (78-100) fL MCH (26-32) pg MCHC (32-36) g/dL RDW (11.5-14.0) % Plt Count (150-450) x10^3/uL MPV (7.5-11.0) fL Gran % (36.0-66.0) % Immature Gran % (Auto) (0.00-0.4) % Nucleat RBC Rel Count (0.00-0.1) % Eos # (Auto) (0-0.5) x10^3/uL Immature Gran # (Auto) (0.00-0.03) x10^3u/L Absolute Lymphs (auto) (1.0-4.6) x10^3/uL Absolute Monos (auto) (0.0-1.3) x10^3/uL Absolute Nucleated RBC (0.00-0.01) x10^3u/L Lymphocytes % (24.0-44.0) % Monocytes % (0.0-12.0) % Eosinophils % (0.00-5.0) % Basophils % (0.0-0.4) % Absolute Granulocytes (1.4-6.9) x10^3/uL Basophils # (0-0.4) x10^3/uL D-Dimer (0.0-0.50) mg/L pO2/FiO2 Ratio 21.0 % VBG pH 7.53 H (7.32-7.42) VBG pCO2 at Pat Temp 20 L* (42-55) mm/Hg VBG pO2 at Pat Temp 117 H (25-40) mm/Hg VBG HCO3 16.7 L* (22-28) meq/L VBG O2 Sat (Yuni) 99.2 (95-100) VBG Base Excess -3.6 L (-2.0-2.0) VBG Hemoglobin 14.0 VBG Carboxyhemoglobin 4.4 (0.0-6.9) % T HGB POC Potassium 4.1 (3.5-5.1) Sodium (135-145) mmol/L Potassium (3.5-5.1) mmol/L Chloride (98-107) mmol/L Carbon Dioxide (22-30) mmol/L Anion Gap (5-15) MEQ/L BUN (9-20) mg/dL Creatinine (0.66-1.25) mg/dL Estimated GFR ML/MIN Glucose (74-106) mg/dL Calcium (8.4-10.2) mg/dL Magnesium 1.9 (1.6-2.3) mg/dL Total Bilirubin (0.2-1.3) mg/dL AST (17-59) U/L ALT (0-50) U/L Alkaline Phosphatase (38-126) U/L Troponin I (0.000-0.034) ng/mL Serum Total Protein (6.3-8.2) g/dL Albumin (3.5-5.0) g/dL Triglycerides 59 (30-150) mg/dL Cholesterol 121 (50-200) mg/dL HDL Cholesterol 18 L (40-60) mg/dL Heart Disease Risk Ratio 7.0 TSH 3rd Generation (0.47-4.68) mIU/L Urine Color (Yellow) Urine Appearance (Clear) Urine pH (4.6-8.0) Ur Specific [place] (1.005-1.030) Urine Protein (Negative) Urine Glucose (UA) (Negative) mg/dL Urine Ketones (Negative) Urine Blood (Negative) Urine Nitrite (Negative) Urine Bilirubin (Negative) Urine Urobilinogen (0.2) mg/dL Ur Leukocyte Esterase (Negative) U Hyaline Cast (Auto) (0-2) /LPF Urine Microscopic RBC (0-5) /HPF Urine Microscopic WBC (0-5) /HPF Ur Epithelial Cells (None Seen) /HPF Urine Bacteria (None Seen) /HPF Urine Culture Reflexed (NO) C. difficile Screen (NEGATIVE) C.difficile 027-NAP1-B1 (NEGATIVE) 10/04/23 10/04/23 Range/Units 07:43 10:20 WBC (4.0-10.5) x10^3/uL RBC (4.1-5.6) x10^6/uL Hgb (12.5-18.0) g/dL Hct (42-50) % MCV (78-100) fL MCH (26-32) pg MCHC (32-36) g/dL RDW (11.5-14.0) % Plt Count (150-450) x10^3/uL MPV (7.5-11.0) fL Gran % (36.0-66.0) % Immature Gran % (Auto) (0.00-0.4) % Nucleat RBC Rel Count (0.00-0.1) % Eos # (Auto) (0-0.5) x10^3/uL Immature Gran # (Auto) (0.00-0.03) x10^3u/L Absolute Lymphs (auto) (1.0-4.6) x10^3/uL Absolute Monos (auto) (0.0-1.3) x10^3/uL Absolute Nucleated RBC (0.00-0.01) x10^3u/L Lymphocytes % (24.0-44.0) % Monocytes % (0.0-12.0) % Eosinophils % (0.00-5.0) % Basophils % (0.0-0.4) % Absolute Granulocytes (1.4-6.9) x10^3/uL Basophils # (0-0.4) x10^3/uL D-Dimer (0.0-0.50) mg/L pO2/FiO2 Ratio % VBG pH (7.32-7.42) VBG pCO2 at Pat Temp (42-55) mm/Hg VBG pO2 at Pat Temp (25-40) mm/Hg VBG HCO3 (22-28) meq/L VBG O2 Sat (Yuni) (95-100) VBG Base Excess (-2.0-2.0) VBG Hemoglobin VBG Carboxyhemoglobin (0.0-6.9) % T HGB POC Potassium (3.5-5.1) Sodium (135-145) mmol/L Potassium (3.5-5.1) mmol/L Chloride (98-107) mmol/L Carbon Dioxide (22-30) mmol/L Anion Gap (5-15) MEQ/L BUN (9-20) mg/dL Creatinine (0.66-1.25) mg/dL Estimated GFR ML/MIN Glucose (74-106) mg/dL Calcium (8.4-10.2) mg/dL Magnesium (1.6-2.3) mg/dL Total Bilirubin (0.2-1.3) mg/dL AST (17-59) U/L ALT (0-50) U/L Alkaline Phosphatase (38-126) U/L Troponin I (0.000-0.034) ng/mL Serum Total Protein (6.3-8.2) g/dL Albumin (3.5-5.0) g/dL Triglycerides (30-150) mg/dL Cholesterol (50-200) mg/dL HDL Cholesterol (40-60) mg/dL Heart Disease Risk Ratio TSH 3rd Generation (0.47-4.68) mIU/L Urine Color Yellow (Yellow) Urine Appearance Clear (Clear) Urine pH 6.0 (4.6-8.0) Ur Specific [place] 1.010 (1.005-1.030) Urine Protein Negative (Negative) Urine Glucose (UA) Negative (Negative) mg/dL Urine Ketones Negative (Negative) Urine Blood Large A (Negative) Urine Nitrite Negative (Negative) Urine Bilirubin Negative (Negative) Urine Urobilinogen 0.2 (0.2) mg/dL Ur Leukocyte Esterase Trace A (Negative) U Hyaline Cast (Auto) NONE SEEN (0-2) /LPF Urine Microscopic RBC >100 A (0-5) /HPF Urine Microscopic WBC 0-2 (0-5) /HPF Ur Epithelial Cells None Seen (None Seen) /HPF Urine Bacteria None Seen (None Seen) /HPF Urine Culture Reflexed YES (NO) C. difficile Screen NEGATIVE (NEGATIVE) C.difficile 027-NAP1-B1 PRESUMPTIVE NEGATIVE (NEGATIVE) - Radiology Exams Ordered Rad Exams-Entire Visit: Radiology Procedures Category Date Time Status CHEST 1 VIEW (PORTABLE) Stat Exams 10/03/23 20:01 Completed ECHO W/2D AND DOPPLER [US] Routine Exams 10/04/23 07:36 Ordered ECHO W/2D AND DOPPLER [US] Routine Exams 10/04/23 07:36 Stop Req KIDNEY [US] Routine Exams 10/04/23 09:42 Ordered - Procedures and Test Procedures and Tests throughout Hospitalization: Therapy Orders & Screens 10/04/23 07:48 PT Eval & Treat (MD Order) ONCE Reason for Eval:: home needs Diagnosis: A-fib with RVR Discharge Exam General Appearance: no apparent distress, alert Neurologic Exam: alert, oriented x 3, cooperative, normal mood/affect, nml cerebellar function, sensation nml, No motor deficits Eye Exam: PERRL, EOMI, eyes nml inspection Ears, Nose, Throat Exam: normal ENT inspection, pharynx normal, moist mucous membranes Neck Exam: normal inspection, non-tender, supple, full range of motion Respiratory Exam: normal breath sounds, lungs clear, No respiratory distress Cardiovascular Exam: regular rate/rhythm, normal heart sounds, irregular Gastrointestinal/Abdomen Exam: soft, No tenderness, No mass Male Genitalia Exam: deferred Rectal Exam: deferred Back Exam: normal inspection, normal range of motion, No CVA tenderness, No vertebral tenderness Extremity Exam: normal inspection, normal range of motion Skin Exam: normal color, warm, dry Final Diagnosis/Problem List - Final Discharge Diagnosis/Problem (1) Atrial fibrillation with RVR Current Visit: Yes Status: Acute Assessment & Plan: - Tele - TSH - WNL - Echo- EF 51% per machine shop repair technician - Cardizem gtt on admission- stopped today at 11:30- pt hypotensive despite 250ml fluid bolus, as do not want to fluid overload pt. - Pt received fluid bolus on admission and last night - Discussed case with Dr. Conteh- cardiology- advised to give Digoxin 0.125 now then in 6 hours. - Continue Eliquis - Hold BP meds d/t hypotension - start statin- will rx at d/c - Lipid panel reviewed: HDL 18 - unstable Code(s): I48.91 - UNSPECIFIED ATRIAL FIBRILLATION (2) Hypotension Current Visit: Yes Status: Acute Assessment & Plan: - Cardizem gtt stopped - Digoxin ordered- per cardiology request - Levophed gtt started - Hold home BP meds and flomax for now Code(s): I95.9 - HYPOTENSION, UNSPECIFIED (3) Acute metabolic acidosis Current Visit: Yes Status: Acute Assessment & Plan: - Bicarb 13 on admission - IVF with bicarb at 70ml/hr - Bicarb improved today 17 - ABG PRN Code(s): E87.21 - ACUTE METABOLIC ACIDOSIS (4) Acute on chronic renal failure Current Visit: Yes Status: Acute Assessment & Plan: - IVF - At baseline renal function today - Creat 1.59 - Pt reports he has never seen nephrology OP- Will need Op appointment at d/c Code(s): N17.9 - ACUTE KIDNEY FAILURE, UNSPECIFIED; N18.9 - CHRONIC KIDNEY DISEASE, UNSPECIFIED (5) Hematuria Current Visit: Yes Status: Acute Assessment & Plan: - Per pt started on September 07 - Pt is on Eliquis but in A-fib and Hgb stable @ 13.6 - UA negative Code(s): R31.9 - HEMATURIA, UNSPECIFIED (6) Hypertensive chronic kidney disease with stage 1 through stage 4 chronic kidney disease, or unspecified chronic kidney disease Current Visit: Yes Status: Acute Assessment & Plan: - Will need Op nephrology workup - Hold BP meds for now d/t hypotension Code(s): I12.9 - HYPERTENSIVE CHRONIC KIDNEY DISEASE W STG 1-4/UNSP CHR KDNY (7) Diarrhea Current Visit: No Status: Acute Assessment & Plan: - acute - Occult stool, C-diff, and stool culture ordered. - C-diff negative Code(s): R19.7 - DIARRHEA, UNSPECIFIED (8) Hx of blood dyscrasia Current Visit: Yes Status: Chronic Assessment & Plan: - Per Dr. Conteh and pt- he saw Dr. Wynn ( oncology) 2 weeks ago for bone marrow biopsy and is scheduled to f/u. Code(s): Z86.2 - PRSNL HISTORY OF DIS OF THE BLD/BLD-FORM ORG/IMMUN MECHNSM (9) BPH (benign prostatic hyperplasia) Current Visit: Yes Status: Acute Assessment & Plan: - hold Flomax if hypotension Code(s): N40.0 - BENIGN PROSTATIC HYPERPLASIA WITHOUT LOWER URINRY TRACT SYMP (10) Hypothyroidism Current Visit: Yes Status: Acute Assessment & Plan: - Chronic - TSH 0.649 - Continue Synthroid Code(s): E03.9 - HYPOTHYROIDISM, UNSPECIFIED - Discharge Discharge Date: 10/04/23 [facility] Condition: Fair Prescriptions: Continue Levothyroxine Sodium 100 Mcg [Synthroid 100 Mcg] 50 mcg PO DAILY Loratadine 10 mg PO DAILY Calcium Carbonate/Vitamin D3 [Calcium 600-Vit D3 400 Tablet] 1 tab PO DAILY Apixaban [Eliquis 5 mg Tablet] 5 mg PO BID Carvedilol 3.125 mg [Coreg 3.125 MG] 3.125 mg PO BID Aspirin EC 81 mg [Ecotrin 81 mg] 81 mg PO DAILY Ascorbic Acid 1,000 mg PO DAILY Latanoprost [Xalatan] 1 drop OP DAILY Tamsulosin HCl 0.4 mg [Flomax 0.4 MG] 0.4 mg PO HS Follow up with: JERONIMO SANTACRUZ [Primary Care Provider] -
[2023-10-04] MEDS: NOREPINEPHRINE 8 MG/250 ML-D5W 8 MG/250 ML PLAST..BAG IV PRN (11:54)
[2023-10-04 12:15] LABS: IFOB TEST RESULTS POSITIVE (NEGATIVE)
--- NOTE | 2023-10-04 14:58 | ECHO ---
Transthoracic echocardiographic examination and color Doppler was done on 10/03/2026. INDICATION: Atrial fibrillation. IMPRESSION: 1) NO REGIONAL WALL MOTION ABNORMALITY. ESTIMATED GLOBAL LEFT VENTRICULAR EJECTION FRACTION BETWEEN 65 TO 70%. 2) MODERATE MITRAL REGURGITATION. 3) MILD TRICUSPID REGURGITATION. RIGHT VENTRICULAR SYSTOLIC PRESSURE OF 37 MM OF MERCURY. 4) LEFT VENTRICULAR HYPERTROPHY. The left ventricle is visualized and demonstrated hyperdynamic left ventricle with global left ventricular ejection fraction around 65 to 70%. There is moderate left ventricular hypertrophy. The mitral valve is seen and this opens adequately. There is moderate mitral regurgitation. Left atrium is normal. The aortic valve opens adequately. There is no significant gradient across the left ventricular outflow tract. The right side chambers are normal. There is mild tricuspid regurgitation. The right ventricular systolic pressure of 37 mm of Mercury.
[2023-10-04 17:00] VITALS: PULSE 77; RESP 19
[2023-10-04] MEDS ORDERED: Lanoxin 0.5 MG/2 ML INJECTION IV ONE (17:00)
[2023-10-04 17:05] VITALS: BP 99/56; TEMP 98.4; O2SAT 91
[2023-10-04] MEDS ORDERED: ZOCOR 20MG PO SCH (22:00)
[2023-10-04 22:53] LABS: CREATININE,URINE RANDOM 65.2 MG/DL
== END 2023-10-04 17:28 | disposition short-term general hospital (02) ==
LOC: ED 16:38 → ICU 20:04
PROVIDERS: ADMIT Internal Medicine Nephrology; ATTEND Internal Medicine Nephrology
DX: I48.20 Chronic atrial fibrillation, unspecified (principal); I95.9 Hypotension, unspecified; E87.21 Acute metabolic acidosis; I12.9 Hypertensive chronic kidney disease with stage 1 through stage 4 chronic kidney disease, or unspecified chronic kidney disease; N18.9 Chronic kidney disease, unspecified; N17.9 Acute kidney failure, unspecified; R19.7 Diarrhea, unspecified; R00.0 Tachycardia, unspecified; E03.9 Hypothyroidism, unspecified; R31.9 Hematuria, unspecified; N40.0 Benign prostatic hyperplasia without lower urinary tract symptoms; Z79.01 Long term (current) use of anticoagulants; Z79.899 Other long term (current) drug therapy; Z20.828 Contact with and (suspected) exposure to other viral communicable diseases; Z86.2 Personal history of diseases of the blood and blood-forming organs and certain disorders involving the immune mechanism
CPT/HCPCS: 36000; 36415; 71045; 76770; 80053; 80061; 81001; 82570; 82805; 83721; 83735; 84156; 84300; 84443; 84484; 85025; 85379; 87045; 87046; 87086; 87427; 87493; 93005; 93041; 93306; 94760; 96365; 96366; 99285; 99291; 99292; G0328; Q3014; 82274; 93268; J1160; J2405; A9270-GY; G0378

== ENCOUNTER 2023-11-19 18:16 | Observation (INO) | payer MEDICARE ==
--- NOTE | 2023-11-19 21:09 | ERPHSYRPT ---
- History of Present Illness Time Seen by Provider: 11/19/23 20:50 Source: patient Exam Limitations: no limitations Patient Subjective Stated Complaint: Pt has been having difficulty swallowing some things lately and he has a scope scheduled for next month but tonite pt was eating ribs and develed eggs and he states that it feels like something is struck in his throat and keeps vomiting, even spitting up his saliva Triage Nursing Assessment: Pt brought to the ER by his , vitals wnl, rates pain as 3/10, pulses normal, skin n/w/d, keeps vomiting, no difficulty with breathing, doesn't appear to be in any distress Physician History: About 5 hours ago pt ate deviled eggs and BBQ ribs and since has not been able t o swallow anything, it just comes back up; denies chest pain, shortness of air, abdominal pain, fever. Allergies/Adverse Reactions: No Known Drug Allergies Allergy (Verified 11/19/23 18:47) Home Medications: Levothyroxine Sodium 100 Mcg [Synthroid 100 Mcg] 50 mcg PO DAILY 01/21/20 [History] Loratadine 10 mg PO DAILY 01/21/20 [History] Calcium Carbonate/Vitamin D3 [Calcium 600-Vit D3 400 Tablet] 1 tab PO DAILY 01/10/21 [History] Apixaban [Eliquis 5 mg Tablet] 5 mg PO BID 11/15/21 [History] Ascorbic Acid 1,000 mg PO DAILY 10/03/23 [History] Aspirin EC 81 mg [Ecotrin 81 mg] 81 mg PO DAILY 10/03/23 [History] Latanoprost [Xalatan] 1 drop OP DAILY 10/03/23 [History] Tamsulosin HCl 0.4 mg [Flomax 0.4 MG] 0.4 mg PO HS 10/03/23 [History] Cholecalciferol (Vitamin D3) [Vitamin D3] 2,000 unit PO DAILY 11/19/23 [History] Magnesium Oxide [Magnesium] 400 mg PO BID 11/19/23 [History] Metoprolol Tartrate 25 mg [Lopressor 25MG Tab] 12.5 mg PO BID 11/19/23 [History] Potassium Chloride [Klor-Con] 20 meq PO DAILY 11/19/23 [History] Smz/Tmp Ds Tablet [Bactrim Ds Tablet] 0.5 tab PO Q12H 11/19/23 [History] Hx Tetanus, Diphtheria Vaccination/Date Given: No Hx Influenza Vaccination/Date Given: Yes Hx Pneumococcal Vaccination/Date Given: Yes Travel Risk - International Travel Have you traveled outside of the country in past 3 weeks: No - Emerging Infectious Disease Are you exhibiting symptoms associated with any current EIDs: No - Review of Systems Constitutional: No Fever Respiratory: No Dyspnea Cardiac: No Chest Pain Abdominal/Gastrointestinal: No Abdominal Pain Neurological: No Headache - Past Medical History Pertinent Past Medical History: Yes Neurological History: No Pertinent History ENT History: No Pertinent History Cardiac History: Other Respiratory History: No Pertinent History Endocrine Medical History: No Pertinent History, Hypothyroidism Musculoskeletal History: No Pertinent History GI Medical History: No Pertinent History History: No Pertinent History Psycho-Social History: No Pertinent History Male Reproductive Disorders: No Pertinent History Other Medical History: seasonal allergies, afib, HTN - Past Surgical History Past Surgical History: Yes Neuro Surgical History: No Pertinent History Cardiac: No Pertinent History Respiratory: No Pertinent History Gastrointestinal: No Pertinent History Genitourinary: No Pertinent History Musculoskeletal: No Pertinent History Male Surgical History: No Pertinent History Other Surgical History: hernia x 3, hemorriods - Social History Smoking Status: Former smoker Exposure to second hand smoke: No Drug Use: none Patient Lives Alone: No - Nursing Vital Signs Nursing Vital Signs: Initial Vital Signs Temperature 98.5 F 11/19/23 18:35 Pulse Rate 85 11/19/23 18:35 Blood Pressure 106/68 11/19/23 18:35 O2 Sat by Pulse Oximetry 93 L 11/19/23 18:35 Pain Scale Pain Intensity 2 - Physical Exam General Appearance: alert Eye Exam: eyes nml inspection Ears, Nose, Throat Exam: pharynx normal Neck Exam: normal inspection Respiratory Exam: lungs clear Cardiovascular Exam: normal heart sounds Gastrointestinal/Abdomen Exam: soft, normal bowel sounds Extremity Exam: No pedal edema Neurologic Exam: alert, cooperative Skin Exam: warm, dry SpO2 Interpretation: normal SpO2: 93 O2 Delivery: Room Air - Course Nursing assessment & vital signs reviewed: Yes - CT Exams Abdomen/Pelvis CT Interpretation: Tele-radiologist Report (Distal esophagus is distended with suspicious circumferential soft tissue lesion([id number]) at gastroesophageal junction. Suggested upper gastrointestinal endoscopy for further evaluation. See rest of report.) Chest CT Interpretation: Tele-radiologist Report (Thoracic esophagus is distended with hypodense fluid and suspicious circumferential soft tissue lesion([id number]) at gastroesophageal junction. See rest of report.) Ordered Tests: Active Orders 24 hr Category Date Time Status ABDOMEN AND PELVIS W/0 CONTRAS [CT] Stat Exams 11/19/23 21:08 Completed CHEST WITHOUT CONTRAST [CT] Stat Exams 11/19/23 21:26 Completed AMYLASE Stat Lab 11/19/23 19:45 Completed CBC W DIFF Stat Lab 11/19/23 19:45 Completed CMP Stat Lab 11/19/23 19:45 Completed LIPASE Stat Lab 11/19/23 19:45 Completed Medication Summary Discontinued Medications Generic Name Dose Route Start Last Admin Trade Name Freq PRN Reason Stop Dose Admin Morphine Sulfate 2 mg 11/20/23 01:40 11/20/23 01:57 Morphine Sulfate 2 Mg/Ml Inj IV 11/20/23 01:41 2 mg STAT ONE Administration Morphine Sulfate Confirm 11/20/23 01:55 Morphine Sulfate 2 Mg/Ml Inj Administered 11/20/23 01:56 Dose 2 mg .[email or web address] ONE Lab/Rad Data: Laboratory Result Diagrams 11/19/23 19:45 11/19/23 19:45 Laboratory Results 11/19/23 11/19/23 Range/Units 19:45 19:45 WBC 3.7 L (4.0-10.5) x10^3/uL RBC 4.94 (4.1-5.6) x10^6/uL Hgb 14.2 (12.5-18.0) g/dL Hct 43.2 (42-50) % MCV 87.4 (78-100) fL MCH 28.7 (26-32) pg MCHC 32.9 (32-36) g/dL RDW 15.0 H (11.5-14.0) % Plt Count 284 (150-450) x10^3/uL MPV 10.4 (7.5-11.0) fL Gran % 46.8 (36.0-66.0) % Immature Gran % (Auto) 0.3 (0.00-0.4) % Nucleat RBC Rel Count 0.0 (0.00-0.1) % Eos # (Auto) 0.53 H (0-0.5) x10^3/uL Immature Gran # (Auto) 0.01 (0.00-0.03) x10^3u/L Absolute Lymphs (auto) 0.87 L (1.0-4.6) x10^3/uL Absolute Monos (auto) 0.52 (0.0-1.3) x10^3/uL Absolute Nucleated RBC 0.00 (0.00-0.01) x10^3u/L Lymphocytes % 23.6 L (24.0-44.0) % Monocytes % 14.1 H (0.0-12.0) % Eosinophils % 14.4 H (0.00-5.0) % Basophils % 0.8 (0.0-0.4) % Absolute Granulocytes 1.72 (1.4-6.9) x10^3/uL Basophils # 0.03 (0-0.4) x10^3/uL Sodium 136 (135-145) mmol/L Potassium 4.4 (3.5-5.1) mmol/L Chloride 111 H (98-107) mmol/L Carbon Dioxide 16 L* (22-30) mmol/L Anion Gap 13.7 (5-15) MEQ/L BUN 31 H (9-20) mg/dL Creatinine 1.84 H (0.66-1.25) mg/dL Estimated GFR 38.2 ML/MIN Glucose 109 H (74-106) mg/dL Calcium 9.5 (8.4-10.2) mg/dL Total Bilirubin 0.60 (0.2-1.3) mg/dL AST 33 (17-59) U/L ALT 22 (0-50) U/L Alkaline Phosphatase 116 (38-126) U/L Serum Total Protein 10.0 H (6.3-8.2) g/dL Albumin 3.8 (3.5-5.0) g/dL Amylase 185 H (30-110) U/L Lipase 620 H (23-300) U/L - Progress Progress: improved Discussed with : Luis (Spoke with & discussed pt with Dr. Wilkerson - obs.) Will see patient in: hospital (observation) Counseled pt/family regarding: lab results, diagnosis, rad results Medical Desision Making - Diagnostic Testing Diagnostic test were ordered, analyzed, and reviewed by me: Yes Radiological Interpretation: Teleradiologist Report - Departure Departure Disposition: Observation Clinical Impression: Sensation of foreign body in esophagus, Elevated amylase and lipase Condition: Stable Critical Care Time: No Referrals: JERONIMO SANTACRUZ [Primary Care Provider] - Follow up/PCP as directed
[2023-11-19 21:18] LABS: Absolute Neutrophil Ct (ANC) 1.72 x10^3/uL (1.4-6.9); BASOPHIL % 0.8 % (0.0-0.4); Basophil (Absolute #) 0.03 x10^3/uL (0-0.4); Eosinophil % 14.4 % (0.00-5.0); Eosinophil (Absolute #) 0.53 x10^3/uL (0-0.5); Hematocrit 43.2 % (42-50); Hemoglobin 14.2 g/dL (12.5-18.0); IMMATURE GRAN # 0.01 x10^3u/L (0.00-0.03); IMMATURE GRAN % 0.3 % (0.00-0.4); Lymphocyte (Absolute #) 0.87 x10^3/uL (1.0-4.6); Lymphocytes % 23.6 % (24.0-44.0); Mean Cell Volume 87.4 fL (78-100); Mean Corpuscular Hemoglobin 28.7 pg (26-32); Mean Corpuscular Hgb Concent. 32.9 g/dL (32-36); Mean Platelet Volume 10.4 fL (7.5-11.0); Monocyte (Absolute #) 0.52 x10^3/uL (0.0-1.3); Monocytes % 14.1 % (0.0-12.0); Neutrophil % 46.8 % (36.0-66.0); Platelet Count 284 x10^3/uL (150-450); Red Blood Count 4.94 x10^6/uL (4.1-5.6); White Blood Count 3.7 x10^3/uL (4.0-10.5)
[2023-11-19 21:24] LABS: ALBUMIN 3.8 g/dL (3.5-5.0); ANION GAP 13.7 MEQ/L (5-15); BILIRUBIN,TOTAL 0.6 mg/dL (0.2-1.3); Calcium 9.5 mg/dL (8.4-10.2); Creatinine 1 1.84 mg/dL (0.66-1.25); EST GLOMERULAR FILTRATION RATE 38.2 ML/MIN; Potassium 4.4 mmol/L (3.5-5.1)
--- NOTE | 2023-11-19 22:47 | XRAY ---
CLINICAL HISTORY: difficulty swallowing COMPARISON: None TECHNIQUE: Contiguous axial images were obtained from the level of the diaphragm to the pubic symphysis without intravenous or oral contrast. Coronal and sagittal reconstructions were likewise performed and indicated to increase the sensitivity for detecting clinically relevant pathology. CT scan was performed according to ALARA (as low as reasonable achievable). FINDINGS: The visualized lung bases shows calcific granulomas bilaterally.Minimal right pleural effusion. Distal esophagus is distended with hypodense fluid with suspicious circuferential soft tissue lesion ([id number])at gastroesophageal junction.Suggested Upper GI Endoscopy. Evaluation of the abdominal and pelvic visceral organs is limited without intravenous contrast. Calcific foci noted in the liver and spleen - granulomas. Rest of the unenhanced liver, spleen, pancreas, and adrenal glands are grossly unremarkable. Splenic parenchymal calcifications.The gallbladder is present and shows multiple luminal stones. The kidneys are normal in size and attenuation without obvious calcification. There is no hydronephrosis or perinephric stranding. The ureters are normal in caliber. No adenopathy or fluid collections are seen. No evidence of focal or diffuse bowel wall thickening or evidence of bowel obstruction is seen. The aorta is normal in caliber. The urinary bladder is normal in contour. There is right periureteric diverticulum measuring 4x3cm and a defect of 8mm. Rest of the pelvic viscera are grossly unremarkable. No aggressive appearing osseous lesions are identified. IMPRESSION: 1.Distal esophagus is distended with suspicious circuferential soft tissue lesion ([id number]) at gastroesophageal junction.Suggested upper gastro intensinal endoscopy for further evaluation. 2.Cholelithiasis 3.Right periureteric vesical diverticulum 4.Bilateral basal lung chornic calcific granulomas 5.Minimal right pleural effusion. 6.Calcific foci in the liver and spleen - granulomas. Electronically Signed by: Hakan Greenfield MD. (11/19/2023 22:43:22 EDT)
--- NOTE | 2023-11-19 23:27 | XRAY ---
CLINICAL HISTORY: difficulty swallowing COMPARISON: None. TECHNIQUE: Contiguous axial images were obtained from the neck base through the upper abdomen without contrast. In addition, sagittal and coronal reconstructions were performed to potentially increase the sensitivity for the detection of disease. CT scan was performed according to ALARA (as low as reasonable achievable). FINDINGS: The visualized lung bases shows calcific granulomas bilaterally.Minimal right pleural effusion. Bilateral upper lobe apical segments show fibrotic scars. Thoracic esophagus is distended with hypodense fluid and suspicious circuferential soft tissue lesion ([id number])at gastroesophageal junction.Suggested Upper GI Endoscopy. The rest of the lungs are clear, with no focal areas of consolidation.. The central airways are patent. There are no pleural effusions. No pneumothorax is seen. Evaluation of the mediastinum and mitra is limited due to the lack of intravenous contrast. Calcific lymphnodes are seen at left hilum and sub carinal regions.No axillary or mediastinal adenopathy is identified. The thyroid is unremarkable. There are coronary artery and aortic atherosclerotic calcifications. No pericardial effusion is identified. No aggressive appearing osseous lesions are identified. IMPRESSION: 1.Thoracic esophagus is distended with hypodense fluid and suspicious circuferential soft tissue lesion ([id number])at gastroesophageal junction.Suggested Upper GI Endoscopy to rule out possible malignancy. 2.Fibrotic scars annd calcifc granulomas in the lung parenchyma suggesting chronic lung infection sequelae. Electronically Signed by: Hakan Greenfield MD. (11/19/2023 23:24:01 EDT)
[2023-11-20] MEDS ORDERED: MORPHINE SULFATE 2 MG INJ ONE (01:55)
[2023-11-20] MEDS: MORPHINE SULFATE 2 MG INJ IV ONE (01:57)
[2023-11-20] MEDS: Zofran 4 MG/2 ML VIAL IV PRN (03:05)
[2023-11-20] MEDS: Sodium Chloride 0.9% 1000 ML 1,000 ML IV SCH (03:44)
[2023-11-20 04:30] LABS: Absolute Neutrophil Ct (ANC) 5.46 x10^3/uL (1.4-6.9); BASOPHIL % 0.3 % (0.0-0.4); Basophil (Absolute #) 0.02 x10^3/uL (0-0.4); Eosinophil % 1.5 % (0.00-5.0); Hematocrit 45.6 % (42-50); Hemoglobin 15.1 g/dL (12.5-18.0); IMMATURE GRAN # 0.01 x10^3u/L (0.00-0.03); IMMATURE GRAN % 0.1 % (0.00-0.4); Lymphocyte (Absolute #) 0.54 x10^3/uL (1.0-4.6); Lymphocytes % 8.1 % (24.0-44.0); Mean Cell Volume 86.5 fL (78-100); Mean Corpuscular Hemoglobin 28.7 pg (26-32); Mean Corpuscular Hgb Concent. 33.1 g/dL (32-36); Mean Platelet Volume 9.6 fL (7.5-11.0); Monocyte (Absolute #) 0.55 x10^3/uL (0.0-1.3); Monocytes % 8.2 % (0.0-12.0); Neutrophil % 81.8 % (36.0-66.0); Platelet Count 287 x10^3/uL (150-450); Red Blood Count 5.27 x10^6/uL (4.1-5.6); Red Cell Distribution Width 15.4 % (11.5-14.0); White Blood Count 6.7 x10^3/uL (4.0-10.5)
--- NOTE | 2023-11-20 04:43 | PCM.HP ---
History of Present Illness - Chief Complaint Chief Complaint: "I cannot swallow" Date: 11/20/23 History of Present Illness: 73-year-old man with history of CKD stage III, A-fib, hypothyroidism, and chronic UTI, who presents with sudden inability to swallow. Patient was eating dinner this evening with ribs and deviled egg when had sudden onset of feeling like food was getting stuck in his lower chest. He developed severe vomiting with any attempts to eat or drink anything further, including becoming intolerant of his saliva. He did not vomit up any saliva that he has produced. He has some mild pain with the vomiting, but otherwise no chest or abdominal pain. No fevers, chills, nausea or diarrhea. He had a similar episode about 5 months ago that cleared on its own. Besides that, he has had no progressive symptoms or dysphagia or odynophagia in the past. Denies weight loss. - Review of Systems Constitutional: No Fever, No Fatigue, No Weakness, No Weight Loss Eyes: No Symptoms Ears, Nose, & Throat: Painful Swallowing, No Mouth Swelling, No Throat Pain Respiratory: No Cough, No Short Of Breath, No Stridor Cardiac: No Chest Pain, No Palpitations Abdominal/Gastrointestinal: Vomiting (To clear unobstructed saliva, without associated nausea), No Abdominal Pain, No Nausea, No Diarrhea All Other Systems: Reviewed and Negative Medications & Allergies Home Medications: Home Medication List Levothyroxine Sodium 100 Mcg [Synthroid 100 Mcg] 50 mcg PO DAILY 01/21/20 [History Confirmed 11/19/23] Loratadine 10 mg PO DAILY 01/21/20 [History Confirmed 11/19/23] Calcium Carbonate/Vitamin D3 [Calcium 600-Vit D3 400 Tablet] 1 tab PO DAILY 01/10/21 [History Confirmed 11/19/23] Apixaban [Eliquis 5 mg Tablet] 5 mg PO BID 11/15/21 [History Confirmed 11/19/23] Ascorbic Acid 1,000 mg PO DAILY 10/03/23 [History Confirmed 11/19/23] Aspirin EC 81 mg [Ecotrin 81 mg] 81 mg PO DAILY 10/03/23 [History Confirmed 11/19/23] Latanoprost [Xalatan] 1 drop OP DAILY 10/03/23 [History Confirmed 11/19/23] Tamsulosin HCl 0.4 mg [Flomax 0.4 MG] 0.4 mg PO HS 10/03/23 [History Confirmed 11/19/23] Cholecalciferol (Vitamin D3) [Vitamin D3] 2,000 unit PO DAILY 11/19/23 [History Confirmed 11/19/23] Magnesium Oxide [Magnesium] 400 mg PO BID 11/19/23 [History Confirmed 11/19/23] Metoprolol Tartrate 25 mg [Lopressor 25MG Tab] 12.5 mg PO BID 11/19/23 [History Confirmed 11/19/23] Potassium Chloride [Klor-Con] 20 meq PO DAILY 11/19/23 [History Confirmed 11/19/23] Smz/Tmp Ds Tablet [Bactrim Ds Tablet] 0.5 tab PO Q12H 11/19/23 [History Confirmed 11/19/23] Allergies/Adverse Reactions: Allergies Allergy/AdvReac Type Severity Reaction Status Date / Time No Known Drug Allergies Allergy Verified 11/19/23 18:47 - Past Medical History Past Medical History: Yes Neurological History: No Pertinent History ENT History: No Pertinent History Cardiac History: Other Respiratory History: No Pertinent History Endocrine Medical History: No Pertinent History, Hypothyroidism Musculoskelatal History: No Pertinent History GI Medical History: No Pertinent History History: Renal Disease (Baseline creatinine 1.6-1.8) Pyscho-Social History: No Pertinent History Male Reproductive Disorders: No Pertinent History Comment: seasonal allergies, afib, HTN - Past Surgical History Past Surgical History: Yes Neuro Surgical History: No Pertinent History Cardiac History: No Pertinent History Respiratory Surgery: No Pertinent History GI Surgical History: No Pertinent History Genitourinary Surgical Hx: No Pertinent History Musculskeletal Surgical Hx: No Pertinent History Male Surgical History: No Pertinent History Other Surgical History: hernia x 3, hemorriods Significant Family History: no pertinent family hx - Social History Smoking Status: Former smoker Exposure to second hand smoke: No Alcohol: None Drug Use: none - Social Determinants of Health Will the patient participate in the screening: Yes Do you worry about a steady place to live?: No Do you have any problems with any of the following?: No known problems In the past 12 months,have you had to go without utilities?: No Have you or anyone in your house had to go without enough: No Transportation Issues: No Has anyone in your support network made you feel unsafe?: No Does the patient want assistance with any of the above?: No - Physical Exam Vital Signs: Vital Signs - 24 hr Temp Pulse Resp BP BP Pulse Ox 11/20/23 04:00 98.7 F 97 H 18 111/67 96 11/20/23 02:54 98.7 F 97 H 18 111/67 96 11/20/23 02:30 101 H 20 116/75 97 11/20/23 02:22 93 L 11/20/23 02:00 99 H 18 116/74 93 L 11/20/23 01:30 101 H 20 114/75 93 L 11/20/23 01:00 96 H 18 117/70 93 L 11/20/23 00:30 99 H 17 104/71 92 L 11/20/23 00:00 99 H 20 98/53 94 L 11/19/23 23:30 100 H 18 95/74 94 L 11/19/23 23:00 104 H 20 106/64 93 L 11/19/23 22:30 97 H 18 116/72 93 L 11/19/23 22:00 98 H 20 119/67 92 L 11/19/23 21:36 99 H 20 118/83 94 L 11/19/23 21:00 110 H 18 126/79 96 11/19/23 20:30 112 H 20 123/76 93 L 11/19/23 20:00 94 H 18 121/81 95 11/19/23 19:30 93 H 19 119/80 94 L 11/19/23 19:00 80 18 114/77 92 L 11/19/23 18:35 98.5 F 85 106/68 93 L GEN: Lying in bed in no acute distress NEURO: No focal deficits CV: Regular rate & rhythm, no murmurs, no edema PULM: Clear to auscultation bilaterally, no work of breathing, on room air ABD: Soft, non-distended, normoactive bowel sounds PSYCH: Alert, oriented x3 Results - Labs Lab/Micro Results: Lab Results-Last 24 Hours 11/19/23 11/19/23 11/20/23 Range/Units 19:45 19:45 04:20 WBC 3.7 L 6.7 (4.0-10.5) x10^3/uL RBC 4.94 5.27 (4.1-5.6) x10^6/uL Hgb 14.2 15.1 (12.5-18.0) g/dL Hct 43.2 45.6 (42-50) % MCV 87.4 86.5 (78-100) fL MCH 28.7 28.7 (26-32) pg MCHC 32.9 33.1 (32-36) g/dL RDW 15.0 H 15.4 H (11.5-14.0) % Plt Count 284 287 (150-450) x10^3/uL MPV 10.4 9.6 (7.5-11.0) fL Gran % 46.8 81.8 H (36.0-66.0) % Immature Gran % (Auto) 0.3 0.1 (0.00-0.4) % Nucleat RBC Rel Count 0.0 0.0 (0.00-0.1) % Eos # (Auto) 0.53 H 0.10 (0-0.5) x10^3/uL Immature Gran # (Auto) 0.01 0.01 (0.00-0.03) x10^3u/L Absolute Lymphs (auto) 0.87 L 0.54 L (1.0-4.6) x10^3/uL Absolute Monos (auto) 0.52 0.55 (0.0-1.3) x10^3/uL Absolute Nucleated RBC 0.00 0.00 (0.00-0.01) x10^3u/L Lymphocytes % 23.6 L 8.1 L (24.0-44.0) % Monocytes % 14.1 H 8.2 (0.0-12.0) % Eosinophils % 14.4 H 1.5 (0.00-5.0) % Basophils % 0.8 0.3 (0.0-0.4) % Absolute Granulocytes 1.72 5.46 (1.4-6.9) x10^3/uL Basophils # 0.03 0.02 (0-0.4) x10^3/uL Sodium 136 (135-145) mmol/L Potassium 4.4 (3.5-5.1) mmol/L Chloride 111 H (98-107) mmol/L Carbon Dioxide 16 L* (22-30) mmol/L Anion Gap 13.7 (5-15) MEQ/L BUN 31 H (9-20) mg/dL Creatinine 1.84 H (0.66-1.25) mg/dL Estimated GFR 38.2 ML/MIN Glucose 109 H (74-106) mg/dL Calcium 9.5 (8.4-10.2) mg/dL Total Bilirubin 0.60 (0.2-1.3) mg/dL AST 33 (17-59) U/L ALT 22 (0-50) U/L Alkaline Phosphatase 116 (38-126) U/L Serum Total Protein 10.0 H (6.3-8.2) g/dL Albumin 3.8 (3.5-5.0) g/dL Amylase 185 H (30-110) U/L Lipase 620 H (23-300) U/L - Radiology Impressions Radiology Exams & Impressions: Radiology Procedures Category Date Time Status ABDOMEN AND PELVIS W/0 CONTRAS [CT] Stat Exams 11/19/23 21:08 Completed CHEST WITHOUT CONTRAST [CT] Stat Exams 11/19/23 21:[address] chest/abdomen/pelvis distention of the distal esophagus with hypodense fluid. No adenopathy. Assessment/Plan (1) Esophageal obstruction due to food impaction Current Visit: Yes Status: Acute Assessment & Plan: 73-year-old man with history of CKD 3, hypothyroidism, and A-fib, here with esophageal obstruction due to food. ## Esophageal obstruction sudden onset, with no preceding symptoms, suggest primary cause is food impaction. He does have one prior episode that did not require medical intervention, suggesting there could be some anatomic narrowing. However, he has not had the pattern of progressive symptoms with smaller sizes of food. Keep n.p.o. NS at 100 mL/h Hold home medications Consult surgery in the morning for EGD At that time, can assess for need for biopsy for stricture/stenosis ## Elevated lipase patient does not have any abdominal pain, or any nausea except for when he has to expel the obstructed food from the upper esophagus. Clinically unlikely to be pancreatitis. Repeat lipase ## CKD stage III patient is at his baseline creatinine Monitor creatinine until able to take p.o. ## A-fib paroxysmal, currently in sinus rhythm. Resume home metoprolol 2.5 BID and Eliquis 5 BID once patient is able to swallow medications ## Hypothyroidism Can resume home levothyroxine 50 mcg daily once he is able to swallow medications ## BPH Resume home Flomax 0.4 mg QHS once he is able to tolerate p.o. medications ## Chronic UTI patient was started on low-dose daily Bactrim for suppression. Can resume Bactrim single strength p.o. BID once he is able to tolerate p.o. medications CODE STATUS: Full code Diet: N.p.o. Prophylaxis: Holding for now, but can resume Eliquis once he can tolerate p.o. medications again Code(s): T18.128A - FOOD IN ESOPHAGUS CAUSING OTHER INJURY, INITIAL ENCOUNTER; W44.F3XA - FOOD ENTERING VIA NATURAL ORIFICE, INITIAL ENCOUNTER Telemedicine Encounter - Telemedicine Encounter Telemedicine Encounter: The entirety of this encounter was performed via Telemedicine"
[2023-11-20 04:52] LABS: ANION GAP 15.6 MEQ/L (5-15); BILIRUBIN,TOTAL 0.6 mg/dL (0.2-1.3); Calcium 9.9 mg/dL (8.4-10.2); Creatinine 1 1.82 mg/dL (0.66-1.25); EST GLOMERULAR FILTRATION RATE 38.7 ML/MIN; Potassium 4.5 mmol/L (3.5-5.1); Total Protein 10.4 g/dL (6.3-8.2)
[2023-11-20 07:36] LABS: Slide Review 1 YES
[2023-11-20 14:39] LABS: ALBUMIN 3.4 g/dL (3.5-5.0); ANION GAP 12.4 MEQ/L (5-15); BILIRUBIN,TOTAL 0.7 mg/dL (0.2-1.3); Creatinine 1 1.62 mg/dL (0.66-1.25); EST GLOMERULAR FILTRATION RATE 44.5 ML/MIN; Potassium 4.3 mmol/L (3.5-5.1); Total Protein 8.8 g/dL (6.3-8.2)
[2023-11-20] MEDS ORDERED: DIPRIVAN 200 MG/20 ML IV ONE (15:43)
[2023-11-20] MEDS ORDERED: SUBLIMAZE 100 MCG/2 ML ONE (15:43)
[2023-11-20] MEDS ORDERED: Decadron 4 MG INJ ONE (15:43)
[2023-11-20] MEDS ORDERED: ROCURONIUM BROMIDE IV ONE (15:43)
[2023-11-20] MEDS ORDERED: Zofran 4 MG/2 ML VIAL ONE (15:43)
[2023-11-20] MEDS ORDERED: BRIDION 200MG/2ML IV ONE (15:43)
[2023-11-20] MEDS ORDERED: Xylocaine-Mpf 2% 5 Ml Vial ONE (15:43)
[2023-11-20] MEDS ORDERED: PHENYLEPHRINE HCL ONE (15:51)
[2023-11-20] MEDS ORDERED: Sodium Chloride 0.9% 1000 ML 1,000 ML ONE (16:36)
[2023-11-20] MEDS ORDERED: MEDICATION ON HOLD MC SCH (17:15)
[2023-11-20] MEDS: Sodium Bicarbonate 50 MEQ/50 ML VIAL*** 150 MEQ in Dextrose 5%/Water IV Soln. 1000 ML 1... IV SCH (17:34)
[2023-11-20] MEDS: Carafate SUSPENSION 1000 MG/10 ML PO SCH (17:35)
[2023-11-20] MEDS: Nystatin SUSPENSION 60 ML PO SCH (17:35)
[2023-11-20 19:12] LABS: ANION GAP 14.3 MEQ/L (5-15); Calcium 8.5 mg/dL (8.4-10.2); Creatinine 1 1.44 mg/dL (0.66-1.25); EST GLOMERULAR FILTRATION RATE 51.3 ML/MIN; Potassium 4.1 mmol/L (3.5-5.1)
[2023-11-20] MEDS ORDERED: MAG-OX 400 ONE (22:04)
[2023-11-20] MEDS: Lopressor 25MG Tab PO SCH (22:07)
[2023-11-20] MEDS: Xalatan OP SCH (22:07)
[2023-11-20] MEDS: PROTONIX 40 MG IV IV SCH (22:10)
[2023-11-20] MEDS: NON-FORMULARY ITEM (Magnesium Oxide [Magnesium] 400 MG Tablet) PO SCH (22:10)
[2023-11-20] MEDS: Flomax 0.4 MG PO SCH (22:10)
[2023-11-21] MEDS ORDERED: SODIUM BICARBONATE 50 MEQ/50 ML ABBOJECT IV ONE (04:10)
[2023-11-21 05:05] LABS: Absolute Neutrophil Ct (ANC) 4.18 x10^3/uL (1.4-6.9); Basophil (Absolute #) 0 x10^3/uL (0-0.4); Eosinophil % 0.2 % (0.00-5.0); Eosinophil (Absolute #) 0.01 x10^3/uL (0-0.5); Hematocrit 37.7 % (42-50); Hemoglobin 12.2 g/dL (12.5-18.0); IMMATURE GRAN # 0.02 x10^3u/L (0.00-0.03); IMMATURE GRAN % 0.4 % (0.00-0.4); Lymphocyte (Absolute #) 0.71 x10^3/uL (1.0-4.6); Mean Cell Volume 88.1 fL (78-100); Mean Corpuscular Hemoglobin 28.5 pg (26-32); Mean Corpuscular Hgb Concent. 32.4 g/dL (32-36); Mean Platelet Volume 9.7 fL (7.5-11.0); Monocyte (Absolute #) 0.53 x10^3/uL (0.0-1.3); Monocytes % 9.7 % (0.0-12.0); Neutrophil % 76.7 % (36.0-66.0); Platelet Count 221 x10^3/uL (150-450); Red Blood Count 4.28 x10^6/uL (4.1-5.6); Red Cell Distribution Width 15.2 % (11.5-14.0); White Blood Count 5.5 x10^3/uL (4.0-10.5)
[2023-11-21 05:32] LABS: ANION GAP 8.7 MEQ/L (5-15); BILIRUBIN,TOTAL 0.6 mg/dL (0.2-1.3); Calcium 8.4 mg/dL (8.4-10.2); Creatinine 1 1.36 mg/dL (0.66-1.25); Potassium 3.9 mmol/L (3.5-5.1); Total Protein 7.8 g/dL (6.3-8.2)
[2023-11-21 05:40] LABS: Direct Bilirubin 0.2 mg/dL (0.0-0.4)
[2023-11-21] MEDS: MAG-OX 400 PO SCH (08:37)
--- NOTE | 2023-11-21 08:45 | PCM.NOTE ---
Date and Time: 11/21/23829 Subjective Assessment: 73 year old male admitted 11/20/23 for esophageal obstruction after experiencing a sensation that his food was stuck in his lower esophagus after consuming a meal of ribs and a deviled egg. Patient did develop severe vomiting with any further attempts to eat/drink. CT imaging noted that thoracic esophagus is distended with hypodense fluid and suspicious circuferential soft tissue lesion ([id number])at gastroesophageal junction. CT abdomen with cholelthiasis. Surgery consulted and EGD performed with foreign body removal. Additional findings of esophagitis, duodenitis, and gastritis noted. Patient started on Nystatin which he will remain on for two weeks as well as carafate and protonix. Surgery also recommends GB removal. Patient to remain on CLD and Eliquis held until cholecystectomy. Lipase initially elevated with no clinical indication of pancreatitis. Levels are now WNL. 11/21/23: Met with patient bedside. He reports that he is feeling much better today following EGD with disimpaction. Labs are improving. Lipase now WNL, Co2 levels improving, and creat at baseline. Surgery to follow patient. Plans to hold eliquis for cholecystectomy. Denies fever,cough, sob, cp, abdominal pain, GALLARDO, dizziness, N/V/D. - Review of Systems Constitutional: No Symptoms Eyes: No Symptoms Ears, Nose, & Throat: No Symptoms Respiratory: No Symptoms Cardiac: No Symptoms Abdominal/Gastrointestinal: No Symptoms Genitourinary Symptoms: No Symptoms Musculoskeletal: No Symptoms Skin: No Symptoms Neurological: No Symptoms Psychological: No Symptoms Endocrine: No Symptoms Hematologic/Lymphatic: No Symptoms Immunological/Allergic: No Symptoms Objective Exam General Appearance: no apparent distress Neurologic Exam: alert, oriented x 3, cooperative Skin Exam: normal color Eye Exam: PERRL Ears, Nose, Throat Exam: moist mucous membranes Neck Exam: normal inspection Respiratory Exam: normal breath sounds, lungs clear Cardiovascular Exam: regular rate/rhythm, normal heart sounds Gastrointestinal/Abdomen Exam: soft, normal bowel sounds Extremity Exam: normal inspection Back Exam: normal inspection Male Genitalia Exam: deferred Rectal Exam: deferred Objective Data Vital Signs: Vital Signs - 24 hr Temp Pulse Resp BP Pulse Ox 11/21/23 07:54 16 11/21/23 07:00 98.0 F 64 16 93/55 94 L 11/21/23 04:00 16 11/21/23 03:00 97.4 F 60 15 11/21/23 00:00 16 11/20/23 22:40 98.4 F 70 16 103/54 99 11/20/23 20:00 16 11/20/23 18:15 98.4 F 82 124/59 11/20/23 17:34 97.2 F 82 17 117/58 95 11/20/23 17:30 97.3 F 79 17 103/58 94 L 11/20/23 16:00 98.6 F 82 17 117/58 90 L 11/20/23 15:11 98.9 F 86 17 118/64 95 11/20/23 12:28 98.9 F 86 17 118/64 95 11/20/23 12:00 17 11/20/23 11:17 98.9 F 86 17 118/64 95 Pain Assessment - Last Documented Pain Intensity 3 Pain Scale Used 0-10 Pain Scale Intake and Output: Intake & Output 11/18/23 11/19/23 11/20/23 11/21/23 11:59 11:59 11:59 11:59 Intake Total 0 1540 Balance 0 1540 Weight 56.4 kg 56.4 kg Lab Results: Lab Results-Last 24 Hours 11/20/23 11/20/23 11/21/23 Range/Units 14:15 18:50 04:44 WBC 5.5 (4.0-10.5) x10^3/uL RBC 4.28 (4.1-5.6) x10^6/uL Hgb 12.2 L (12.5-18.0) g/dL Hct 37.7 L (42-50) % MCV 88.1 (78-100) fL MCH 28.5 (26-32) pg MCHC 32.4 (32-36) g/dL RDW 15.2 H (11.5-14.0) % Plt Count 221 (150-450) x10^3/uL MPV 9.7 (7.5-11.0) fL Gran % 76.7 H (36.0-66.0) % Immature Gran % (Auto) 0.4 (0.00-0.4) % Nucleat RBC Rel Count 0.0 (0.00-0.1) % Eos # (Auto) 0.01 (0-0.5) x10^3/uL Immature Gran # (Auto) 0.02 (0.00-0.03) x10^3u/L Absolute Lymphs (auto) 0.71 L (1.0-4.6) x10^3/uL Absolute Monos (auto) 0.53 (0.0-1.3) x10^3/uL Absolute Nucleated RBC 0.00 (0.00-0.01) x10^3u/L Lymphocytes % 13.0 L (24.0-44.0) % Monocytes % 9.7 (0.0-12.0) % Eosinophils % 0.2 (0.00-5.0) % Basophils % 0.0 (0.0-0.4) % Absolute Granulocytes 4.18 (1.4-6.9) x10^3/uL Basophils # 0 (0-0.4) x10^3/uL Sodium 140 138 (135-145) mmol/L Potassium 4.3 4.1 (3.5-5.1) mmol/L Chloride 118 H 115 H (98-107) mmol/L Carbon Dioxide 16 L* 13 L* (22-30) mmol/L Anion Gap 12.4 14.3 (5-15) MEQ/L BUN 32 H 30 H (9-20) mg/dL Creatinine 1.62 H 1.44 H (0.66-1.25) mg/dL Estimated GFR 44.5 51.3 ML/MIN Glucose 96 224 H (74-106) mg/dL Calcium 9.0 8.5 (8.4-10.2) mg/dL Total Bilirubin 0.70 (0.2-1.3) mg/dL Direct Bilirubin (0.0-0.4) mg/dL AST 28 (17-59) U/L ALT 19 (0-50) U/L Alkaline Phosphatase 111 (38-126) U/L Serum Total Protein 8.8 H (6.3-8.2) g/dL Albumin 3.4 L (3.5-5.0) g/dL Amylase (30-110) U/L Lipase (23-300) U/L 11/21/23 11/21/23 Range/Units 04:44 04:44 WBC (4.0-10.5) x10^3/uL RBC (4.1-5.6) x10^6/uL Hgb (12.5-18.0) g/dL Hct (42-50) % MCV (78-100) fL MCH (26-32) pg MCHC (32-36) g/dL RDW (11.5-14.0) % Plt Count (150-450) x10^3/uL MPV (7.5-11.0) fL Gran % (36.0-66.0) % Immature Gran % (Auto) (0.00-0.4) % Nucleat RBC Rel Count (0.00-0.1) % Eos # (Auto) (0-0.5) x10^3/uL Immature Gran # (Auto) (0.00-0.03) x10^3u/L Absolute Lymphs (auto) (1.0-4.6) x10^3/uL Absolute Monos (auto) (0.0-1.3) x10^3/uL Absolute Nucleated RBC (0.00-0.01) x10^3u/L Lymphocytes % (24.0-44.0) % Monocytes % (0.0-12.0) % Eosinophils % (0.00-5.0) % Basophils % (0.0-0.4) % Absolute Granulocytes (1.4-6.9) x10^3/uL Basophils # (0-0.4) x10^3/uL Sodium 137 (135-145) mmol/L Potassium 3.9 (3.5-5.1) mmol/L Chloride 111 H (98-107) mmol/L Carbon Dioxide 21 L (22-30) mmol/L Anion Gap 8.7 (5-15) MEQ/L BUN 30 H (9-20) mg/dL Creatinine 1.36 H (0.66-1.25) mg/dL Estimated GFR 55.0 ML/MIN Glucose 140 H (74-106) mg/dL Calcium 8.4 (8.4-10.2) mg/dL Total Bilirubin 0.60 Cancelled (0.2-1.3) mg/dL Direct Bilirubin 0.2 Cancelled (0.0-0.4) mg/dL AST 23 Cancelled (17-59) U/L ALT 16 Cancelled (0-50) U/L Alkaline Phosphatase 92 Cancelled (38-126) U/L Serum Total Protein 7.8 Cancelled (6.3-8.2) g/dL Albumin 3.0 L Cancelled (3.5-5.0) g/dL Amylase 135 H Cancelled (30-110) U/L Lipase 237 Cancelled (23-300) U/L Radiology Exams: Radiology Procedures Category Date Time Status ABDOMEN AND PELVIS W/0 CONTRAS [CT] Stat Exams 11/19/23 21:08 Completed CHEST WITHOUT CONTRAST [CT] Stat Exams 11/19/23 21:26 Completed Assessment/Plan (1) Esophageal obstruction due to food impaction Current Visit: Yes Status: Acute Assessment & Plan: -Prior episode that did not require intervention -CT imaging reviewed with GE junction lesion noted, EGD recommended -Surgery consulted, EGD performed with foreign body removal, additional findings of esophagitis, doudenitis, and gastritis, Nystatin started (2 week regimen), Protonix and carafate- biopsies pending -Per surgery pt to remain on CLD -hold eliquis -Home meds resumed Code(s): T18.128A - FOOD IN ESOPHAGUS CAUSING OTHER INJURY, INITIAL ENCOUNTER; W44.F3XA - FOOD ENTERING VIA NATURAL ORIFICE, INITIAL ENCOUNTER (2) Cholelithiasis Current Visit: Yes Status: Acute Assessment & Plan: -Surgery consulted with recs for cholecystecomy -Eliquis on hold (3) Acute metabolic acidosis Current Visit: No Status: Acute Assessment & Plan: -Most likely secondary to vomiting -C02 levels improving, bicarb drip d/cd, oral bicarb initiated -Continue to monitor BMP Code(s): E87.21 - ACUTE METABOLIC ACIDOSIS (4) Elevated amylase and lipase Current Visit: Yes Status: Acute Assessment & Plan: patient does not have any abdominal pain, or any nausea except for when he has to expel the obstructed food from the upper esophagus. Clinically unlikely to be pancreatitis. Repeat lipase now WNL Code(s): R74.8 - ABNORMAL LEVELS OF OTHER SERUM ENZYMES (5) Chronic UTI Current Visit: Yes Status: Acute Assessment & Plan: patient was started on low-dose daily Bactrim for suppression -continue Code(s): N39.0 - URINARY TRACT INFECTION, SITE NOT SPECIFIED (6) Chronic kidney disease, stage 3 Current Visit: Yes Status: Acute Assessment & Plan: -at baseline creat -Monitor renal/lytes daily while IP, avoid nephrotoxic meds/NSAIDs Code(s): N18.30 - CHRONIC KIDNEY DISEASE, STAGE 3 UNSPECIFIED (7) Afib Current Visit: Yes Status: Acute Assessment & Plan: paroxysmal, currently in sinus rhythm. Resume home metoprolol 2.5 BID -Eliquis on hold for now per surgery Code(s): I48.91 - UNSPECIFIED ATRIAL FIBRILLATION (8) BPH (benign prostatic hyperplasia) Current Visit: Yes Status: Acute Assessment & Plan: -continue Flomax Code(s): N40.0 - BENIGN PROSTATIC HYPERPLASIA WITHOUT LOWER URINRY TRACT SYMP (9) Hypothyroidism Current Visit: No Status: Acute Assessment & Plan: -Continue levothyroxine CODE STATUS: Full code Diet: CLD Prophylaxis: Holding for now per surgery recs Code(s): E03.9 - HYPOTHYROIDISM, UNSPECIFIED
[2023-11-21] MEDS: Klor Con PO SCH (09:18)
[2023-11-21] MEDS: Vitamin C 500 MG PO SCH (09:19)
[2023-11-21] MEDS: VITAMIN D PO SCH (09:19)
[2023-11-21] MEDS: CLARITIN 10 MG PO SCH (09:20)
[2023-11-21] MEDS: Calcium 500MG W/Vit D Tablet PO SCH (09:20)
[2023-11-21] MEDS: SYNTHROID 50 MCG PO SCH (09:21)
[2023-11-21] MEDS ORDERED: SYNTHROID 100 MCG PO SCH (10:00)
[2023-11-21] MEDS ORDERED: NON-FORMULARY ITEM (Calcium Carbonate/Vitamin D3 [Calcium 600-Vit D3 400 Tablet] 1 EACH Ta PO SCH (10:00)
[2023-11-21] MEDS ORDERED: NON-FORMULARY ITEM (Potassium Chloride [Klor-Con] 20 MEQ Packet) PO SCH (10:00)
[2023-11-21] MEDS ORDERED: NON-FORMULARY ITEM (Cholecalciferol (Vitamin D3) [Vitamin D3] 50 MCG Capsule) PO SCH (10:00)
[2023-11-21] MEDS: BACTRIM DS TABLET PO SCH (11:40)
[2023-11-21] MEDS: SODIUM BICARBONATE PO SCH (11:40)
[2023-11-21] MEDS: Sodium Chloride 0.9% 1000 ML 1,000 ML IV SCH (11:40)
[2023-11-21 12:55] LABS: ANION GAP 7.8 MEQ/L (5-15); Calcium 8.3 mg/dL (8.4-10.2); Creatinine 1 1.37 mg/dL (0.66-1.25); EST GLOMERULAR FILTRATION RATE 54.5 ML/MIN; Potassium 3.6 mmol/L (3.5-5.1)
[2023-11-22 05:04] LABS: Absolute Neutrophil Ct (ANC) 2.28 x10^3/uL (1.4-6.9); BASOPHIL % 0.8 % (0.0-0.4); Basophil (Absolute #) 0.04 x10^3/uL (0-0.4); Eosinophil % 4.6 % (0.00-5.0); Eosinophil (Absolute #) 0.22 x10^3/uL (0-0.5); Hematocrit 40.5 % (42-50); Hemoglobin 13.2 g/dL (12.5-18.0); IMMATURE GRAN # 0.01 x10^3u/L (0.00-0.03); IMMATURE GRAN % 0.2 % (0.00-0.4); Lymphocyte (Absolute #) 1.51 x10^3/uL (1.0-4.6); Lymphocytes % 31.8 % (24.0-44.0); Mean Cell Volume 88.6 fL (78-100); Mean Corpuscular Hemoglobin 28.9 pg (26-32); Mean Corpuscular Hgb Concent. 32.6 g/dL (32-36); Mean Platelet Volume 9.7 fL (7.5-11.0); Monocyte (Absolute #) 0.69 x10^3/uL (0.0-1.3); Monocytes % 14.5 % (0.0-12.0); Neutrophil % 48.1 % (36.0-66.0); Platelet Count 226 x10^3/uL (150-450); Red Blood Count 4.57 x10^6/uL (4.1-5.6); Red Cell Distribution Width 15.3 % (11.5-14.0); White Blood Count 4.8 x10^3/uL (4.0-10.5)
--- NOTE | 2023-11-22 05:15 | PCM.DS ---
Discharge Summary Date of Admission: 11/20/23 02:28 Date of Discharge: 11/22/23 Admitting Physician: SLICK MAE MD Consults: Consults on Case 11/20/23 02:24 Consult Surgery ROUTINE Primary Care Provider: JERONIMO SANTACRUZ Allergies Allergies No Known Drug Allergies Allergy (Verified 11/19/23 18:47) Hospital Summary - Hospital Course Hospital Course: Subjective Assessment: 73 year old male admitted 11/20/23 for esophageal obstruction after experiencing a sensation that his food was stuck in his lower esophagus after consuming a meal of ribs and a deviled egg. Patient did develop severe vomiting with any further attempts to eat/drink. CT imaging noted that thoracic esophagus is dis tended with hypodense fluid and suspicious circuferential soft tissue lesion ([id number])at gastroesophageal junction. CT abdomen with cholelthiasis. Surgery consulted and EGD performed with foreign body removal. Additional findings of esophagitis, duodenitis, and gastritis noted. Patient started on Nystatin which he will remain on for two weeks as well as carafate and protonix. Surgery also recommends GB removal which will be performed as outpatient. Patient to resume Eliquis. Lipase initially elevated with no clinical indication of pancreatitis. Levels are now WNL.GB US ordered per surgery. Discharge Note New Diagnosis: Food impaction New Medications:Nystatin which he will remain on for two weeks as well as carafate and protonix Follow Up: PCP/Surgery Results pending: GB US Latest Assessment & Plan (1) Esophageal obstruction due to food impaction Current Visit: Yes Status: Acute Assessment & Plan: -Prior episode that did not require intervention -CT imaging reviewed with GE junction lesion noted, EGD recommended -Surgery consulted, EGD performed with foreign body removal, additional findings of esophagitis, doudenitis, and gastritis, Nystatin started (2 week regimen), Protonix and carafate- biopsies pending -Per surgery pt to remain on CLD -hold eliquis -Home meds resumed Code(s): T18.128A - FOOD IN ESOPHAGUS CAUSING OTHER INJURY, INITIAL ENCOUNTER; W44.F3XA - FOOD ENTERING VIA NATURAL ORIFICE, INITIAL ENCOUNTER (2) Cholelithiasis Current Visit: Yes Status: Acute Assessment & Plan: -Surgery consulted with recs for cholecystecomy -Eliquis on hold 11/21: -Surgery to be performed as OP, continue Eliquis for now (3) Acute metabolic acidosis Current Visit: No Status: Acute Assessment & Plan: -Most likely secondary to vomiting -C02 levels improving, bicarb drip d/cd, oral bicarb initiated -Continue to monitor BMP Code(s): E87.21 - ACUTE METABOLIC ACIDOSIS (4) Elevated amylase and lipase Current Visit: Yes Status: Acute Assessment & Plan: patient does not have any abdominal pain, or any nausea except for when he has to expel the obstructed food from the upper esophagus. Clinically unlikely to be pancreatitis. Repeat lipase now WNL Code(s): R74.8 - ABNORMAL LEVELS OF OTHER SERUM ENZYMES (5) Chronic UTI Current Visit: Yes Status: Acute Assessment & Plan: patient was started on low-dose daily Bactrim for suppression -continue Code(s): N39.0 - URINARY TRACT INFECTION, SITE NOT SPECIFIED (6) Chronic kidney disease, stage 3 Current Visit: Yes Status: Acute Assessment & Plan: -at baseline creat -Monitor renal/lytes daily while IP, avoid nephrotoxic meds/NSAIDs Code(s): N18.30 - CHRONIC KIDNEY DISEASE, STAGE 3 UNSPECIFIED (7) Afib Current Visit: Yes Status: Acute Assessment & Plan: paroxysmal, currently in sinus rhythm. Resume home metoprolol 2.5 BID -Eliquis on hold for now per surgery - resumed as surgery will be done as op Code(s): I48.91 - UNSPECIFIED ATRIAL FIBRILLATION (8) BPH (benign prostatic hyperplasia) Current Visit: Yes Status: Acute Assessment & Plan: -continue Flomax Code(s): N40.0 - BENIGN PROSTATIC HYPERPLASIA WITHOUT LOWER URINRY TRACT SYMP (9) Hypothyroidism Current Visit: No Status: Acute Assessment & Plan: -Continue levothyroxine I spent 35 minutes [id number] with the patient on the day of discharge performing discharge exam, discussing hospital stay and discharge instructions with patient and caregivers, preparation of discharge records, prescriptions & referral forms and addressing any questions/concerns the patient had as documented above. - Vitals & Intake/Output Vital Signs: Vital Signs Temperature 98.7 F 11/22/23 03:00 Pulse Rate 71 11/22/23 03:00 Respiratory Rate 18 11/22/23 04:00 Blood Pressure 99/54 11/22/23 03:00 O2 Sat by Pulse Oximetry 94 L 11/22/23 03:00 Intake & Output: Intake & Output 11/19/23 11/20/23 11/21/23 11/22/23 11:59 11:59 11:59 11:59 Intake Total 0 2019 1239 Balance 0 2019 1239 Weight 56.4 kg 56.4 kg - Lab Result Diagrams: 11/21/23 04:44 11/21/23 12:14 Lab Results-Last 24 Hrs: Lab Results-Last 24 Hours 11/21/23 11/21/23 11/21/23 Range/Units 04:44 04:44 04:44 WBC 5.5 (4.0-10.5) x10^3/uL RBC 4.28 (4.1-5.6) x10^6/uL Hgb 12.2 L (12.5-18.0) g/dL Hct 37.7 L (42-50) % MCV 88.1 (78-100) fL MCH 28.5 (26-32) pg MCHC 32.4 (32-36) g/dL RDW 15.2 H (11.5-14.0) % Plt Count 221 (150-450) x10^3/uL MPV 9.7 (7.5-11.0) fL Gran % 76.7 H (36.0-66.0) % Immature Gran % (Auto) 0.4 (0.00-0.4) % Nucleat RBC Rel Count 0.0 (0.00-0.1) % Eos # (Auto) 0.01 (0-0.5) x10^3/uL Immature Gran # (Auto) 0.02 (0.00-0.03) x10^3u/L Absolute Lymphs (auto) 0.71 L (1.0-4.6) x10^3/uL Absolute Monos (auto) 0.53 (0.0-1.3) x10^3/uL Absolute Nucleated RBC 0.00 (0.00-0.01) x10^3u/L Lymphocytes % 13.0 L (24.0-44.0) % Monocytes % 9.7 (0.0-12.0) % Eosinophils % 0.2 (0.00-5.0) % Basophils % 0.0 (0.0-0.4) % Absolute Granulocytes 4.18 (1.4-6.9) x10^3/uL Basophils # 0 (0-0.4) x10^3/uL Sodium 137 (135-145) mmol/L Potassium 3.9 (3.5-5.1) mmol/L Chloride 111 H (98-107) mmol/L Carbon Dioxide 21 L (22-30) mmol/L Anion Gap 8.7 (5-15) MEQ/L BUN 30 H (9-20) mg/dL Creatinine 1.36 H (0.66-1.25) mg/dL Estimated GFR 55.0 ML/MIN Glucose 140 H (74-106) mg/dL Calcium 8.4 (8.4-10.2) mg/dL Total Bilirubin 0.60 Cancelled (0.2-1.3) mg/dL Direct Bilirubin 0.2 Cancelled (0.0-0.4) mg/dL AST 23 Cancelled (17-59) U/L ALT 16 Cancelled (0-50) U/L Alkaline Phosphatase 92 Cancelled (38-126) U/L Serum Total Protein 7.8 Cancelled (6.3-8.2) g/dL Albumin 3.0 L Cancelled (3.5-5.0) g/dL Amylase 135 H Cancelled (30-110) U/L Lipase 237 Cancelled (23-300) U/L 11/21/23 Range/Units 12:14 WBC (4.0-10.5) x10^3/uL RBC (4.1-5.6) x10^6/uL Hgb (12.5-18.0) g/dL Hct (42-50) % MCV (78-100) fL MCH (26-32) pg MCHC (32-36) g/dL RDW (11.5-14.0) % Plt Count (150-450) x10^3/uL MPV (7.5-11.0) fL Gran % (36.0-66.0) % Immature Gran % (Auto) (0.00-0.4) % Nucleat RBC Rel Count (0.00-0.1) % Eos # (Auto) (0-0.5) x10^3/uL Immature Gran # (Auto) (0.00-0.03) x10^3u/L Absolute Lymphs (auto) (1.0-4.6) x10^3/uL Absolute Monos (auto) (0.0-1.3) x10^3/uL Absolute Nucleated RBC (0.00-0.01) x10^3u/L Lymphocytes % (24.0-44.0) % Monocytes % (0.0-12.0) % Eosinophils % (0.00-5.0) % Basophils % (0.0-0.4) % Absolute Granulocytes (1.4-6.9) x10^3/uL Basophils # (0-0.4) x10^3/uL Sodium 137 (135-145) mmol/L Potassium 3.6 (3.5-5.1) mmol/L Chloride 107 (98-107) mmol/L Carbon Dioxide 26 (22-30) mmol/L Anion Gap 7.8 (5-15) MEQ/L BUN 25 H (9-20) mg/dL Creatinine 1.37 H (0.66-1.25) mg/dL Estimated GFR 54.5 ML/MIN Glucose 111 H (74-106) mg/dL Calcium 8.3 L (8.4-10.2) mg/dL Total Bilirubin (0.2-1.3) mg/dL Direct Bilirubin (0.0-0.4) mg/dL AST (17-59) U/L ALT (0-50) U/L Alkaline Phosphatase (38-126) U/L Serum Total Protein (6.3-8.2) g/dL Albumin (3.5-5.0) g/dL Amylase (30-110) U/L Lipase (23-300) U/L - Radiology Exams Ordered Rad Exams-Entire Visit: Radiology Procedures Category Date Time Status GALLBLADDER [US] Routine Exams 11/22/23 08:00 Ordered - Procedures and Test Procedures and Tests throughout Hospitalization: Therapy Orders & Screens 11/20/23 03:39 ST Screen per Nursing Assess ONCE Comment: Protocol Order Physician Instructions: Greater than [address] Admission Screening Reason For Exam: Triggered on Admission Diagnosis: pancreatitis CVA/Dyshpagia/Aphasia: Yes Cognitive Deficits: No Dehydration/Nutrition Deficit: No Reflux: Yes Oral-Motor Difficulties: No Pneumonia: No Longterm Resident: No Total Points: 8 Final Diagnosis/Problem List - Final Discharge Diagnosis/Problem (1) Esophageal obstruction due to food impaction Current Visit: Yes Status: Resolved Code(s): T18.128A - FOOD IN ESOPHAGUS CAUSING OTHER INJURY, INITIAL ENCOUNTER; W44.F3XA - FOOD ENTERING VIA NATURAL ORIFICE, INITIAL ENCOUNTER (2) Cholelithiasis Current Visit: Yes Status: Acute (3) Acute metabolic acidosis Current Visit: No Status: Resolved Code(s): E87.21 - ACUTE METABOLIC ACIDOSIS (4) Elevated amylase and lipase Current Visit: Yes Status: Resolved Code(s): R74.8 - ABNORMAL LEVELS OF OTHER SERUM ENZYMES (5) Chronic UTI Current Visit: Yes Status: Chronic Code(s): N39.0 - URINARY TRACT INFECTION, SITE NOT SPECIFIED (6) Chronic kidney disease, stage 3 Current Visit: Yes Status: Chronic Code(s): N18.30 - CHRONIC KIDNEY DISEASE, STAGE 3 UNSPECIFIED (7) Afib Current Visit: Yes Status: Chronic Code(s): I48.91 - UNSPECIFIED ATRIAL FIBRILLATION (8) BPH (benign prostatic hyperplasia) Current Visit: Yes Status: Chronic Code(s): N40.0 - BENIGN PROSTATIC HYPERPLASIA WITHOUT LOWER URINRY TRACT SYMP (9) Hypothyroidism Current Visit: No Status: Chronic Code(s): E03.9 - HYPOTHYROIDISM, UNSPECIFIED - Discharge Disposition: Home, Self-Care Condition: Stable Prescriptions: New Nystatin 5 ml PO QID 14 Days #240 ml PANTOPRAZOLE 40 mg Tablet [Protonix 40MG Tablet] 40 mg PO QAM 14 Days #14 tab Continue Levothyroxine Sodium 100 Mcg [Synthroid 100 Mcg] 50 mcg PO DAILY Loratadine 10 mg PO DAILY Calcium Carbonate/Vitamin D3 [Calcium 600-Vit D3 400 Tablet] 1 tab PO DAILY Apixaban [Eliquis 5 mg Tablet] 5 mg PO BID Aspirin EC 81 mg [Ecotrin 81 mg] 81 mg PO DAILY Ascorbic Acid 1,000 mg PO DAILY Latanoprost [Xalatan] 1 drop OP DAILY Tamsulosin HCl 0.4 mg [Flomax 0.4 MG] 0.4 mg PO HS Metoprolol Tartrate 25 mg [Lopressor 25MG Tab] 12.5 mg PO BID Magnesium Oxide [Magnesium] 400 mg PO BID Smz/Tmp Ds Tablet [Bactrim Ds Tablet] 0.5 tab PO Q12H Potassium Chloride [Klor-Con] 20 meq PO DAILY Cholecalciferol (Vitamin D3) [Vitamin D3] 2,000 unit PO DAILY Follow up with: JERONIMO SANTACRUZ [Primary Care Provider] - MANDI LOZANO MD [ACTIVE STAFF] - 11/23/23 11:10 am
[2023-11-22] MEDS ORDERED: TYLENOL 325 MG ONE (08:10)
[2023-11-22] MEDS ORDERED: TYLENOL 325 MG PO PRN (08:14)
[2023-11-22] MEDS: MORPHINE SULFATE 2 MG INJ IV PRN (08:50)
[2023-11-22] MEDS: CARDIZEM DRIP 100 MG/100 ML D5W 100 ML IV PRN (08:58)
--- NOTE | 2023-11-22 09:32 | PCM.NOTE ---
Date and Time: 11/22/23926 Subjective Assessment: 73 year old male admitted 11/20/23 for esophageal obstruction after experiencing a sensation that his food was stuck in his lower esophagus after consuming a meal of ribs and a deviled egg. Patient did develop severe vomiting with any further attempts to eat/drink. CT imaging noted that thoracic esophagus is distended with hypodense fluid and suspicious circuferential soft tissue lesion ([id number])at gastroesophageal junction. CT abdomen with cholelthiasis. Surgery consulted and EGD performed with foreign body removal. Additional findings of esophagitis, duodenitis, and gastritis noted. Patient started on Nystatin which he will remain on for two weeks as well as carafate and protonix. Surgery also recommends cholecystecomy as OP. Lipase initially elevated with no clinical indication of pancreatitis. Levels are now WNL. Patient is schedule for GB US today per surgery and developed AFIB RVR. Cardizem drip initiated. Cardiology consulted. Of note patient did have recent NM stress test on 11/10/23 which was normal. EF at 70%. 11/22/23: Met with patient bedside. Not feeling well this morning. Patient with nausea overnight, shortness of breath, and chest pressure. Non-radiating. Does have headache. EKG showing AFIB RVR. Patient does have history AFIB and is on metoprolol and eliquis. Plan for cardizem drip with cardiac consult. Reviewed recent stress test done 11/10/23 which was normal. - Review of Systems Constitutional: No Symptoms Eyes: No Symptoms Ears, Nose, & Throat: No Symptoms Respiratory: Short Of Breath Cardiac: Other (chest pressure) Abdominal/Gastrointestinal: Nausea Genitourinary Symptoms: No Symptoms Musculoskeletal: No Symptoms Skin: No Symptoms Neurological: Headache Psychological: No Symptoms Endocrine: No Symptoms Hematologic/Lymphatic: No Symptoms Immunological/Allergic: No Symptoms Objective Exam General Appearance: mild distress Neurologic Exam: alert, oriented x 3, cooperative Eye Exam: PERRL Neck Exam: normal inspection Respiratory Exam: normal breath sounds, lungs clear Cardiovascular Exam: tachycardia, irregular Gastrointestinal/Abdomen Exam: soft, normal bowel sounds Extremity Exam: normal inspection Back Exam: normal inspection Male Genitalia Exam: deferred Rectal Exam: deferred Objective Data Vital Signs: Vital Signs - 24 hr Temp Pulse Resp BP BP Pulse Ox 11/22/23 09:11 93 L 11/22/23 08:58 140 H 16 128/66 11/22/23 08:00 16 11/22/23 07:00 98.5 F 70 16 114/50 93 L 11/22/23 04:00 18 11/22/23 03:00 98.7 F 71 18 99/54 94 L 11/22/23 00:00 16 11/21/23 23:00 100.0 F 71 16 93/50 94 L 11/21/23 20:00 18 11/21/23 19:00 99.6 F 77 18 88/51 97 11/21/23 16:00 20 11/21/23 15:00 98.6 F 69 16 91/53 94 L 11/21/23 12:00 16 11/21/23 11:00 98.6 F 67 16 96/58 97 Pain Assessment - Last Documented Pain Intensity 4 Pain Scale Used 0-10 Pain Scale Intake and Output: Intake & Output 11/19/23 11/20/23 11/21/23 11/22/23 11:59 11:59 11:59 11:59 Intake Total 0 2019 1240 Balance 0 2019 124 Weight 56.4 kg 56.4 kg Lab Results: Lab Results-Last 24 Hours 11/21/23 11/22/23 11/22/23 Range/Units 12:14 05:01 05:01 WBC 4.8 (4.0-10.5) x10^3/uL RBC 4.57 (4.1-5.6) x10^6/uL Hgb 13.2 (12.5-18.0) g/dL Hct 40.5 L (42-50) % MCV 88.6 (78-100) fL MCH 28.9 (26-32) pg MCHC 32.6 (32-36) g/dL RDW 15.3 H (11.5-14.0) % Plt Count 226 (150-450) x10^3/uL MPV 9.7 (7.5-11.0) fL Gran % 48.1 (36.0-66.0) % Immature Gran % (Auto) 0.2 (0.00-0.4) % Nucleat RBC Rel Count 0.0 (0.00-0.1) % Eos # (Auto) 0.22 (0-0.5) x10^3/uL Immature Gran # (Auto) 0.01 (0.00-0.03) x10^3u/L Absolute Lymphs (auto) 1.51 (1.0-4.6) x10^3/uL Absolute Monos (auto) 0.69 (0.0-1.3) x10^3/uL Absolute Nucleated RBC 0.00 (0.00-0.01) x10^3u/L Lymphocytes % 31.8 (24.0-44.0) % Monocytes % 14.5 H (0.0-12.0) % Eosinophils % 4.6 (0.00-5.0) % Basophils % 0.8 (0.0-0.4) % Absolute Granulocytes 2.28 (1.4-6.9) x10^3/uL Basophils # 0.04 (0-0.4) x10^3/uL Sodium 137 (135-145) mmol/L Potassium 3.6 (3.5-5.1) mmol/L Chloride 107 (98-107) mmol/L Carbon Dioxide 26 (22-30) mmol/L Anion Gap 7.8 (5-15) MEQ/L BUN 25 H (9-20) mg/dL Creatinine 1.37 H (0.66-1.25) mg/dL Estimated GFR 54.5 ML/MIN Glucose 111 H (74-106) mg/dL Calcium 8.3 L (8.4-10.2) mg/dL Troponin I (0.000-0.033) ng/mL 11/22/23 Range/Units 09:00 WBC (4.0-10.5) x10^3/uL RBC (4.1-5.6) x10^6/uL Hgb (12.5-18.0) g/dL Hct (42-50) % MCV (78-100) fL MCH (26-32) pg MCHC (32-36) g/dL RDW (11.5-14.0) % Plt Count (150-450) x10^3/uL MPV (7.5-11.0) fL Gran % (36.0-66.0) % Immature Gran % (Auto) (0.00-0.4) % Nucleat RBC Rel Count (0.00-0.1) % Eos # (Auto) (0-0.5) x10^3/uL Immature Gran # (Auto) (0.00-0.03) x10^3u/L Absolute Lymphs (auto) (1.0-4.6) x10^3/uL Absolute Monos (auto) (0.0-1.3) x10^3/uL Absolute Nucleated RBC (0.00-0.01) x10^3u/L Lymphocytes % (24.0-44.0) % Monocytes % (0.0-12.0) % Eosinophils % (0.00-5.0) % Basophils % (0.0-0.4) % Absolute Granulocytes (1.4-6.9) x10^3/uL Basophils # (0-0.4) x10^3/uL Sodium (135-145) mmol/L Potassium (3.5-5.1) mmol/L Chloride (98-107) mmol/L Carbon Dioxide (22-30) mmol/L Anion Gap (5-15) MEQ/L BUN (9-20) mg/dL Creatinine (0.66-1.25) mg/dL Estimated GFR ML/MIN Glucose (74-106) mg/dL Calcium (8.4-10.2) mg/dL Troponin I < 0.012 (0.000-0.033) ng/mL Radiology Exams: Radiology Procedures Category Date Time Status GALLBLADDER [US] Routine Exams 11/22/23 08:00 Stop Req GALLBLADDER [US] Routine Exams 11/22/23 09:13 Ordered Multi-Disciplinary Progress Notes: Multi-Disciplinary Progress Notes 11/21/23 09:41 Case Management Note by Mami Chung S/W PATIENT ABOUT NEEDS AT DC- HE CONTINUES TO DENY ANY NEW NEEDS. HE PLANS TO DC HOME TO HIS PLF AT TIME OF DC Initialized on 11/21/23 09:41 - END OF NOTE Assessment/Plan (1) Esophageal obstruction due to food impaction Current Visit: Yes Status: Resolved Assessment & Plan: -Prior episode that did not require intervention -CT imaging reviewed with GE junction lesion noted, EGD recommended -Surgery consulted, EGD performed with foreign body removal, additional findings of esophagitis, doudenitis, and gastritis, Nystatin started (2 week regimen), Protonix and carafate- biopsies pending -Per surgery pt to remain on CLD -hold eliquis -Home meds resumed Code(s): T18.128A - FOOD IN ESOPHAGUS CAUSING OTHER INJURY, INITIAL ENCOUNTER; W44.F3XA - FOOD ENTERING VIA NATURAL ORIFICE, INITIAL ENCOUNTER (2) Cholelithiasis Current Visit: Yes Status: Acute Assessment & Plan: -Surgery consulted with recs for cholecystecomy -Eliquis on hold 11/21: -GB US planned for today per surgery, plan for OP cholecystectomy, eliquis resumed (3) Acute metabolic acidosis Current Visit: No Status: Acute Assessment & Plan: -Most likely secondary to vomiting -C02 levels improving, bicarb drip d/cd, oral bicarb initiated -Continue to monitor BMP 11/21: resolved on 11/20 Code(s): E87.21 - ACUTE METABOLIC ACIDOSIS (4) Elevated amylase and lipase Current Visit: Yes Status: Acute Assessment & Plan: patient does not have any abdominal pain, or any nausea except for when he has to expel the obstructed food from the upper esophagus. Clinically unlikely to be pancreatitis. Repeat lipase now WNL Code(s): R74.8 - ABNORMAL LEVELS OF OTHER SERUM ENZYMES (5) Chronic UTI Current Visit: Yes Status: Acute Assessment & Plan: patient was started on low-dose daily Bactrim for suppression -continue Code(s): N39.0 - URINARY TRACT INFECTION, SITE NOT SPECIFIED (6) Chronic kidney disease, stage 3 Current Visit: Yes Status: Acute Assessment & Plan: -at baseline creat -Monitor renal/lytes daily while IP, avoid nephrotoxic meds/NSAIDs Code(s): N18.30 - CHRONIC KIDNEY DISEASE, STAGE 3 UNSPECIFIED (7) Afib Current Visit: Yes Status: Acute Assessment & Plan: paroxysmal, currently in sinus rhythm. Resume home metoprolol 12.5 BID -Eliquis on hold for now per surgery 11/21: -Pt with AFIB RVR HR in the 150's, cardizem bolus/drip initiated, cardiac consult -Eliquis resumed -MG/TSH -Records reviewed with recent stress test on 11/10/23 -normal EF 70% -Consult cardiology Code(s): I48.91 - UNSPECIFIED ATRIAL FIBRILLATION (8) BPH (benign prostatic hyperplasia) Current Visit: Yes Status: Acute Assessment & Plan: -continue Flomax Code(s): N40.0 - BENIGN PROSTATIC HYPERPLASIA WITHOUT LOWER URINRY TRACT SYMP (9) Hypothyroidism Current Visit: No Status: Acute Assessment & Plan: -Continue levothyroxine CODE STATUS: Full code Diet: CLD Prophylaxis: Holding for now per surgery recs Code(s): T18.128A - FOOD IN ESOPHAGUS CAUSING OTHER INJURY, INITIAL ENCOUNTER; W44.F3XA - FOOD ENTERING VIA NATURAL ORIFICE, INITIAL ENCOUNTER (2) Cholelithiasis Current Visit: Yes Status: Acute (3) Acute metabolic acidosis Current Visit: No Status: Resolved Code(s): E87.21 - ACUTE METABOLIC ACIDOSIS (4) Elevated amylase and lipase Current Visit: Yes Status: Resolved Code(s): R74.8 - ABNORMAL LEVELS OF OTHER SERUM ENZYMES (5) Chronic UTI Current Visit: Yes Status: Chronic Code(s): N39.0 - URINARY TRACT INFECTION, SITE NOT SPECIFIED (6) Chronic kidney disease, stage 3 Current Visit: Yes Status: Chronic Code(s): N18.30 - CHRONIC KIDNEY DISEASE, STAGE 3 UNSPECIFIED (7) Afib Current Visit: Yes Status: Chronic Code(s): I48.91 - UNSPECIFIED ATRIAL FIBRILLATION (8) BPH (benign prostatic hyperplasia) Current Visit: Yes Status: Chronic Code(s): N40.0 - BENIGN PROSTATIC HYPERPLASIA WITHOUT LOWER URINRY TRACT SYMP (9) Hypothyroidism Current Visit: No Status: Chronic Code(s): E03.9 - HYPOTHYROIDISM, UNSPECIFIED (10) Atrial fibrillation with RVR Current Visit: Yes Status: Acute Code(s): I48.91 - UNSPECIFIED ATRIAL FIBRILLATION
[2023-11-22] MEDS ORDERED: NON-FORMULARY ITEM (Apixaban*** [Eliquis 5 Mg Tablet***] 5 MG Tablet) PO SCH (10:00)
[2023-11-22] MEDS: ELIQUIS 2.5 MG TABLET PO SCH (10:43)
[2023-11-22] MEDS: ECOTRIN 81 MG PO SCH (10:44)
--- NOTE | 2023-11-22 11:26 | XRAY ---
Indication: Cholelithiasis on recent CT. Two-dimensional gallbladder sonogram performed. Comparison: None Gallbladder normally distended with a few subcentimeter gallstones. Largest 6 mm. No abnormal gallbladder wall thickening or pericholecystic fluid. Common bile duct measures 3.9 mm. No intrahepatic biliary distention. Remaining visualized liver and pancreas are sonographically unremarkable. No free fluid. Right kidney measures 9.3 x 3.8 x 3.6 cm with incidental 1.4 cm upper pole cyst. No solid renal mass or hydronephrosis. Impression: 1. Cholelithiasis without cholecystitis or biliary distention. 2. Incidental right renal cyst.
--- NOTE | 2023-11-22 12:24 | XRAY ---
Indication: Short of breath. Comparison: October 03, 2023 Portable chest demonstrates new diffuse pulmonary edema without consolidation/large effusion. Superimposed pneumonia not completely excluded. Heart not enlarged. Bony thorax intact again with osteopenia and degenerative changes.
--- NOTE | 2023-11-22 13:48 | PCM.DS ---
Discharge Summary Date of Admission: 11/20/23 02:28 Date of Discharge: 11/22/23 Admitting Physician: SLICK MAE MD Consults: Consults on Case 11/20/23 02:24 Consult Surgery ROUTINE Primary Care Provider: JERONIMO SANTACRUZ Allergies Allergies No Known Drug Allergies Allergy (Verified 11/19/23 18:47) Hospital Summary - Hospital Course Hospital Course: 73 year old male admitted 11/20/23 for esophageal obstruction after experiencing a sensation that his food was stuck in his lower esophagus after consuming a meal of ribs and a deviled egg. Patient did develop severe vomiting with any further attempts to eat/drink. CT imaging noted that thoracic esophagus is distended with hypodense fluid and suspicious circuferential soft tissue lesion ([id number])at gastroesophageal junction. CT abdomen with cholelthiasis. Surgery consulted and EGD performed with foreign body removal. Additional findings of e sophagitis, duodenitis, and gastritis noted. Patient started on Nystatin which he will remain on for two weeks as well as carafate and protonix. Surgery also recommends cholecystecomy as OP. Lipase initially elevated with no clinical indication of pancreatitis. Levels are now WNL. Patient is schedule for GB US today per surgery and developed AFIB RVR. Spoke with patient's shipper receiver Dr. Estrada. Cardizem drip initiated with metoprolol home dose recommended. Patient unable to maintain BP on drip. [facility] level [facility] care with ICU/cardiology. Of note patient did have recent NM stress test on 11/10/23 which was normal. EF at 70%. Discharge Note : Latest Assessment & Plan 1) Esophageal obstruction due to food impaction Current Visit: Yes Status: Resolved Assessment & Plan: -Prior episode that did not require intervention -CT imaging reviewed with GE junction lesion noted, EGD recommended -Surgery consulted, EGD performed with foreign body removal, additional findings of esophagitis, doudenitis, and gastritis, Nystatin started (2 week regimen), Protonix and carafate- biopsies pending -Per surgery pt to remain on CLD -hold eliquis -Home meds resumed 11/21: -CXR pending Code(s): T18.128A - FOOD IN ESOPHAGUS CAUSING OTHER INJURY, INITIAL ENCOUNTER; W44.F3XA - FOOD ENTERING VIA NATURAL ORIFICE, INITIAL ENCOUNTER (2) Cholelithiasis Current Visit: Yes Status: Acute Assessment & Plan: -Surgery consulted with recs for cholecystecomy -Eliquis on hold 11/21: -GB US planned for today per surgery, plan for OP cholecystectomy, eliquis resumed (3) Acute metabolic acidosis Current Visit: No Status: Acute Assessment & Plan: -Most likely secondary to vomiting -C02 levels improving, bicarb drip d/cd, oral bicarb initiated -Continue to monitor BMP 11/21: resolved on 11/20 Code(s): E87.21 - ACUTE METABOLIC ACIDOSIS (4) Elevated amylase and lipase Current Visit: Yes Status: Acute Assessment & Plan: patient does not have any abdominal pain, or any nausea except for when he has to expel the obstructed food from the upper esophagus. Clinically unlikely to be pancreatitis. Repeat lipase now WNL Code(s): R74.8 - ABNORMAL LEVELS OF OTHER SERUM ENZYMES (5) Chronic UTI Current Visit: Yes Status: Acute Assessment & Plan: patient was started on low-dose daily Bactrim for suppression -continue Code(s): N39.0 - URINARY TRACT INFECTION, SITE NOT SPECIFIED (6) Chronic kidney disease, stage 3 Current Visit: Yes Status: Acute Assessment & Plan: -at baseline creat -Monitor renal/lytes daily while IP, avoid nephrotoxic meds/NSAIDs Code(s): N18.30 - CHRONIC KIDNEY DISEASE, STAGE 3 UNSPECIFIED (7) Afib Current Visit: Yes Status: Acute Assessment & Plan: paroxysmal, currently in sinus rhythm. Resume home metoprolol 12.5 BID -Eliquis on hold for now per surgery 11/21: -Pt with AFIB RVR HR in the 150's, cardizem bolus/drip initiated, spoke with Dr. Estrada- pts shipper receiver advised drip/metoprolol, if unable to convert transfer to [facility] -Eliquis resumed -MG/TSH -Records reviewed with recent stress test on 11/10/23 -normal EF 70% -Consult cardiology Code(s): I48.91 - UNSPECIFIED ATRIAL FIBRILLATION (8) BPH (benign prostatic hyperplasia) Current Visit: Yes Status: Acute Assessment & Plan: -continue Flomax Code(s): N40.0 - BENIGN PROSTATIC HYPERPLASIA WITHOUT LOWER URINRY TRACT SYMP (9) Hypothyroidism Current Visit: No Status: Acute Assessment & Plan: -Continue levothyroxine I spent 35 minutes [id number] with the patient on the day of discharge performing discharge exam, discussing hospital stay and discharge instructions with patient and caregivers, preparation of discharge records, prescriptions & referral forms and addressing any questions/concerns the patient had as documented above. - Vitals & Intake/Output Vital Signs: Vital Signs Temperature 97.7 F 11/22/23 12:22 Pulse Rate 70 11/22/23 13:00 Respiratory Rate 20 11/22/23 13:00 Blood Pressure 80/50 11/22/23 13:00 O2 Sat by Pulse Oximetry 90 L 11/22/23 13:00 Intake & Output: Intake & Output 11/20/23 11/21/23 11/22/23 11/23/23 11:59 11:59 11:59 11:59 Intake Total 0 2019 1240 0 Balance 0 2019 1240 0 Weight 56.4 kg 56.4 kg - Lab Result Diagrams: 11/22/23 05:01 11/21/23 12:14 Lab Results-Last 24 Hrs: Lab Results-Last 24 Hours 11/22/23 11/22/23 11/22/23 Range/Units 05:01 05:01 09:00 WBC 4.8 (4.0-10.5) x10^3/uL RBC 4.57 (4.1-5.6) x10^6/uL Hgb 13.2 (12.5-18.0) g/dL Hct 40.5 L (42-50) % MCV 88.6 (78-100) fL MCH 28.9 (26-32) pg MCHC 32.6 (32-36) g/dL RDW 15.3 H (11.5-14.0) % Plt Count 226 (150-450) x10^3/uL MPV 9.7 (7.5-11.0) fL Gran % 48.1 (36.0-66.0) % Immature Gran % (Auto) 0.2 (0.00-0.4) % Nucleat RBC Rel Count 0.0 (0.00-0.1) % Eos # (Auto) 0.22 (0-0.5) x10^3/uL Immature Gran # (Auto) 0.01 (0.00-0.03) x10^3u/L Absolute Lymphs (auto) 1.51 (1.0-4.6) x10^3/uL Absolute Monos (auto) 0.69 (0.0-1.3) x10^3/uL Absolute Nucleated RBC 0.00 (0.00-0.01) x10^3u/L Lymphocytes % 31.8 (24.0-44.0) % Monocytes % 14.5 H (0.0-12.0) % Eosinophils % 4.6 (0.00-5.0) % Basophils % 0.8 (0.0-0.4) % Absolute Granulocytes 2.28 (1.4-6.9) x10^3/uL Basophils # 0.04 (0-0.4) x10^3/uL Anion Gap (5-15) MEQ/L Troponin I < 0.012 (0.000-0.033) ng/mL - Radiology Exams Ordered Rad Exams-Entire Visit: Radiology Procedures Category Date Time Status CHEST 1 VIEW (PORTABLE) Stat Exams 11/22/23 11:36 Completed GALLBLADDER [US] Routine Exams 11/22/23 09:13 Completed - Procedures and Test Procedures and Tests throughout Hospitalization: Therapy Orders & Screens 11/20/23 03:39 ST Screen per Nursing Assess ONCE Comment: Protocol Order Physician Instructions: Greater than [address] Admission Screening Reason For Exam: Triggered on Admission Diagnosis: pancreatitis CVA/Dyshpagia/Aphasia: Yes Cognitive Deficits: No Dehydration/Nutrition Deficit: No Reflux: Yes Oral-Motor Difficulties: No Pneumonia: No Detention Resident: No Total Points: 8 11/22/23 08:14 EKG STAT Comment: EKG Reason: Other 11/22/23 09:09 EKG ONCE Comment: Diagnosis: "I cannot swallow" 11/22/23 09:10 Oxygen NASAL CANNULA 2 lpm Comment: Diagnosis: "I cannot swallow" Discharge Exam General Appearance: no apparent distress Neurologic Exam: alert, oriented x 3, cooperative Eye Exam: PERRL Ears, Nose, Throat Exam: normal ENT inspection Neck Exam: normal inspection Respiratory Exam: normal breath sounds, lungs clear Cardiovascular Exam: tachycardia, irregular Gastrointestinal/Abdomen Exam: soft, normal bowel sounds Male Genitalia Exam: deferred Rectal Exam: deferred Back Exam: normal inspection Extremity Exam: normal inspection Skin Exam: normal color Final Diagnosis/Problem List - Final Discharge Diagnosis/Problem (1) Esophageal obstruction due to food impaction Current Visit: Yes Status: Resolved Code(s): T18.128A - FOOD IN ESOPHAGUS CAUSING OTHER INJURY, INITIAL ENCOUNTER; W44.F3XA - FOOD ENTERING VIA NATURAL ORIFICE, INITIAL ENCOUNTER (2) Cholelithiasis Current Visit: Yes Status: Acute (3) Acute metabolic acidosis Current Visit: No Status: Resolved Code(s): E87.21 - ACUTE METABOLIC ACIDOSIS (4) Elevated amylase and lipase Current Visit: Yes Status: Resolved Code(s): R74.8 - ABNORMAL LEVELS OF OTHER SERUM ENZYMES (5) Chronic UTI Current Visit: Yes Status: Chronic Code(s): N39.0 - URINARY TRACT INFECTION, SITE NOT SPECIFIED (6) Chronic kidney disease, stage 3 Current Visit: Yes Status: Chronic Code(s): N18.30 - CHRONIC KIDNEY DISEASE, STAGE 3 UNSPECIFIED (7) Afib Current Visit: Yes Status: Chronic Code(s): I48.91 - UNSPECIFIED ATRIAL FIBRILLATION (8) BPH (benign prostatic hyperplasia) Current Visit: Yes Status: Chronic Code(s): N40.0 - BENIGN PROSTATIC HYPERPLASIA WITHOUT LOWER URINRY TRACT SYMP (9) Hypothyroidism Current Visit: No Status: Chronic Code(s): E03.9 - HYPOTHYROIDISM, UNSPECIFIED (10) Atrial fibrillation with RVR Current Visit: Yes Status: Acute Code(s): I48.91 - UNSPECIFIED ATRIAL FIBRILLATION - Discharge Disposition: DC TO [facility] Condition: Stable Prescriptions: New Nystatin 5 ml PO QID 14 Days #240 ml PANTOPRAZOLE 40 mg Tablet [Protonix 40MG Tablet] 40 mg PO QAM 14 Days #14 tab Sucralfate 1000 mg/10 ml [Carafate SUSPENSION 1000 MG/10 ML] 1,000 mg PO BIDAC Diltiazem HCl 100 mg/100 ml [Cardizem Drip 100 mg/100 ml D5w] See Rx Ins tructions .ROUTE .COMPLEX PRN PRN Reason: HEART RATE/ A-FIB Continue Levothyroxine Sodium 100 Mcg [Synthroid 100 Mcg] 50 mcg PO DAILY Loratadine 10 mg PO DAILY Calcium Carbonate/Vitamin D3 [Calcium 600-Vit D3 400 Tablet] 1 tab PO DAILY Apixaban [Eliquis 5 mg Tablet] 5 mg PO BID Aspirin EC 81 mg [Ecotrin 81 mg] 81 mg PO DAILY Ascorbic Acid 1,000 mg PO DAILY Latanoprost [Xalatan] 1 drop OP DAILY Tamsulosin HCl 0.4 mg [Flomax 0.4 MG] 0.4 mg PO HS Metoprolol Tartrate 25 mg [Lopressor 25MG Tab] 12.5 mg PO BID Magnesium Oxide [Magnesium] 400 mg PO BID Smz/Tmp Ds Tablet [Bactrim Ds Tablet] 0.5 tab PO Q12H Potassium Chloride [Klor-Con] 20 meq PO DAILY Cholecalciferol (Vitamin D3) [Vitamin D3] 2,000 unit PO DAILY Follow up with: JERONIMO SANTACRUZ [Primary Care Provider] - MANDI LOZANO MD [ACTIVE STAFF] - 11/23/23 11:10 am
[2023-11-23 03:50] VITALS: TEMP 98.1
[2023-11-23 05:03] LABS: BASOPHIL % 0.5 % (0.0-0.4); Basophil (Absolute #) 0.02 x10^3/uL (0-0.4); Eosinophil % 9.2 % (0.00-5.0); Eosinophil (Absolute #) 0.38 x10^3/uL (0-0.5); Hematocrit 37.5 % (42-50); Hemoglobin 11.9 g/dL (12.5-18.0); IMMATURE GRAN # 0.01 x10^3u/L (0.00-0.03); IMMATURE GRAN % 0.2 % (0.00-0.4); Lymphocyte (Absolute #) 0.86 x10^3/uL (1.0-4.6); Lymphocytes % 20.7 % (24.0-44.0); Mean Cell Volume 90.4 fL (78-100); Mean Corpuscular Hemoglobin 28.7 pg (26-32); Mean Corpuscular Hgb Concent. 31.7 g/dL (32-36); Monocyte (Absolute #) 0.58 x10^3/uL (0.0-1.3); Neutrophil % 55.4 % (36.0-66.0); Platelet Count 203 x10^3/uL (150-450); Red Blood Count 4.15 x10^6/uL (4.1-5.6); Red Cell Distribution Width 15.4 % (11.5-14.0); White Blood Count 4.2 x10^3/uL (4.0-10.5)
[2023-11-23 05:28] LABS: ALBUMIN 2.5 g/dL (3.5-5.0); ANION GAP 6.7 MEQ/L (5-15); BILIRUBIN,TOTAL 0.4 mg/dL (0.2-1.3); Creatinine 1 1.52 mg/dL (0.66-1.25); EST GLOMERULAR FILTRATION RATE 48.1 ML/MIN; Potassium 4.4 mmol/L (3.5-5.1); Total Protein 6.9 g/dL (6.3-8.2)
[2023-11-23 07:00] VITALS: BP 102/54; RESP 20
--- NOTE | 2023-11-23 07:27 | PCM.DS ---
Discharge Summary Date of Admission: 11/20/23 02:28 Date of Discharge: 11/23/23 Admitting Physician: SLICK MAE MD Consults: Consults on Case 11/20/23 02:24 Consult Surgery ROUTINE Primary Care Provider: JERONIMO SANTACRUZ Allergies Allergies No Known Drug Allergies Allergy (Verified 11/19/23 18:47) Hospital Summary - Hospital Course Hospital Course: 73 year old male admitted 11/20/23 for esophageal obstruction after experiencing a sensation that his food was stuck in his lower esophagus after consuming a meal of ribs and a deviled egg. Patient did develop severe vomiting with any further attempts to eat/drink. CT imaging noted that thoracic esophagus is distended with hypodense fluid and suspicious circuferential soft tissue lesion ([id number])at gastroesophageal junction. CT abdomen with cholelthiasis. Surgery consulted and EGD performed with foreign body removal. Additional findings of esophagitis, duodenitis, and gastritis noted. Patient started on Nystatin which he will remain on for two weeks as well as carafate and protonix. Surgery also recommends cholecystecomy as OP. Lipase initially elevated with no clinical indication of pancreatitis. Levels are now WNL. GB US showing cholelthiasis. Developed AFIB RVR. Spoke with patient's church communications administrator Dr. Estrada. Cardizem drip initiated with metoprolol home dose recommended, Patient converted and is now in NS, patient is to continue home dose of metoprolol for now and follow up with Dr. Estrada as OP. Patient is feeling much better today, Labs and vitals stable. Will wean oxygen or set up for home use if needed. Patient has OP appt today with surgery to discuss cholecystectomy. Discharge Note New Diagnosis:Esophogeal impaction/afib rvr New Medications:Nystatin which he will remain on for two weeks as well as carafate and protonix. Follow Up: pcp/cards/surgery Latest Assessment & Plan 1) Esophageal obstruction due to food impaction Current Visit: Yes Status: Resolved Assessment & Plan: -Prior episode that did not require intervention -CT imaging reviewed with GE junction lesion noted, EGD recommended -Surgery consulted, EGD performed with foreign body removal, additional findings of esophagitis, doudenitis, and gastritis, Nystatin started (2 week regimen), Protonix and carafate- biopsies pending -Per surgery pt to remain on CLD -hold eliquis -Home meds resumed 11/21: -CXR pending Code(s): T18.128A - FOOD IN ESOPHAGUS CAUSING OTHER INJURY, INITIAL ENCOUNTER; W44.F3XA - FOOD ENTERING VIA NATURAL ORIFICE, INITIAL ENCOUNTER (2) Cholelithiasis Current Visit: Yes Status: Acute Assessment & Plan: -Surgery consulted with recs for cholecystecomy -Eliquis on hold 11/21: -GB US planned for today per surgery, plan for OP cholecystectomy, eliquis resumed (3) Acute metabolic acidosis Current Visit: No Status: Acute Assessment & Plan: -Most likely secondary to vomiting -C02 levels improving, bicarb drip d/cd, oral bicarb initiated -Continue to monitor BMP 11/21: resolved on 11/20 Code(s): E87.21 - ACUTE METABOLIC ACIDOSIS (4) Elevated amylase and lipase Current Visit: Yes Status: Acute Assessment & Plan: patient does not have any abdominal pain, or any nausea except for when he has to expel the obstructed food from the upper esophagus. Clinically unlikely to be pancreatitis. Repeat lipase now WNL Code(s): R74.8 - ABNORMAL LEVELS OF OTHER SERUM ENZYMES (5) Chronic UTI Current Visit: Yes Status: Acute Assessment & Plan: patient was started on low-dose daily Bactrim for suppression -continue Code(s): N39.0 - URINARY TRACT INFECTION, SITE NOT SPECIFIED (6) Chronic kidney disease, stage 3 Current Visit: Yes Status: Acute Assessment & Plan: -at baseline creat -Monitor renal/lytes daily while IP, avoid nephrotoxic meds/NSAIDs Code(s): N18.30 - CHRONIC KIDNEY DISEASE, STAGE 3 UNSPECIFIED (7) Afib Current Visit: Yes Status: Acute Assessment & Plan: paroxysmal, currently in sinus rhythm. Resume home metoprolol 12.5 BID -Eliquis on hold for now per surgery 11/21: -Pt with AFIB RVR HR in the 150's, cardizem bolus/drip initiated, spoke with Dr. Estrada- pts church communications administrator advised drip/metoprolol, if unable to convert transfer to regional -Eliquis resumed -MG/TSH -Records reviewed with recent stress test on 11/10/23 -normal EF 70% -Consult cardiology Code(s): I48.91 - UNSPECIFIED ATRIAL FIBRILLATION (8) BPH (benign prostatic hyperplasia) Current Visit: Yes Status: Acute Assessment & Plan: -continue Flomax Code(s): N40.0 - BENIGN PROSTATIC HYPERPLASIA WITHOUT LOWER URINRY TRACT SYMP (9) Hypothyroidism Current Visit: No Status: Acute Assessment & Plan: -Continue levothyroxine I spent 35 minutes [id number] with the patient on the day of discharge performing discharge exam, discussing hospital stay and discharge instructions with patient and caregivers, preparation of discharge records, prescriptions & referral forms and addressing any questions/concerns the patient had as documented above. - Vitals & Intake/Output Vital Signs: Vital Signs Temperature 98.1 F 11/23/23 06:59 Pulse Rate 74 11/23/23 06:59 Respiratory Rate 20 11/23/23 06:59 Blood Pressure 102/54 11/23/23 06:59 O2 Sat by Pulse Oximetry 94 L 11/23/23 06:59 Intake & Output: Intake & Output 11/20/23 11/21/23 11/22/23 11/23/23 11:59 11:59 11:59 11:59 Intake Total 0 2019 1240 580 Balance 0 2019 1240 580 Weight 56.4 kg 56.4 kg - Lab Result Diagrams: 11/23/23 04:15 11/23/23 04:15 Lab Results-Last 24 Hrs: Lab Results-Last 24 Hours 11/22/23 11/22/23 11/23/23 Range/Units 05:01 09:00 04:15 WBC 4.2 (4.0-10.5) x10^3/uL RBC 4.15 (4.1-5.6) x10^6/uL Hgb 11.9 L (12.5-18.0) g/dL Hct 37.5 L (42-50) % MCV 90.4 (78-100) fL MCH 28.7 (26-32) pg MCHC 31.7 L (32-36) g/dL RDW 15.4 H (11.5-14.0) % Plt Count 203 (150-450) x10^3/uL MPV 10.0 (7.5-11.0) fL Gran % 55.4 (36.0-66.0) % Immature Gran % (Auto) 0.2 (0.00-0.4) % Nucleat RBC Rel Count 0.0 (0.00-0.1) % Eos # (Auto) 0.38 (0-0.5) x10^3/uL Immature Gran # (Auto) 0.01 (0.00-0.03) x10^3u/L Absolute Lymphs (auto) 0.86 L (1.0-4.6) x10^3/uL Absolute Monos (auto) 0.58 (0.0-1.3) x10^3/uL Absolute Nucleated RBC 0.00 (0.00-0.01) x10^3u/L Lymphocytes % 20.7 L (24.0-44.0) % Monocytes % 14.0 H (0.0-12.0) % Eosinophils % 9.2 H (0.00-5.0) % Basophils % 0.5 (0.0-0.4) % Absolute Granulocytes 2.30 (1.4-6.9) x10^3/uL Basophils # 0.02 (0-0.4) x10^3/uL Sodium (135-145) mmol/L Potassium (3.5-5.1) mmol/L Chloride (98-107) mmol/L Carbon Dioxide (22-30) mmol/L Anion Gap (5-15) MEQ/L BUN (9-20) mg/dL Creatinine (0.66-1.25) mg/dL Estimated GFR ML/MIN Glucose (74-106) mg/dL Calcium (8.4-10.2) mg/dL Total Bilirubin (0.2-1.3) mg/dL AST (17-59) U/L ALT (0-50) U/L Alkaline Phosphatase (38-126) U/L Troponin I < 0.012 (0.000-0.033) ng/mL Serum Total Protein (6.3-8.2) g/dL Albumin (3.5-5.0) g/dL 11/23/23 Range/Units 04:15 WBC (4.0-10.5) x10^3/uL RBC (4.1-5.6) x10^6/uL Hgb (12.5-18.0) g/dL Hct (42-50) % MCV (78-100) fL MCH (26-32) pg MCHC (32-36) g/dL RDW (11.5-14.0) % Plt Count (150-450) x10^3/uL MPV (7.5-11.0) fL Gran % (36.0-66.0) % Immature Gran % (Auto) (0.00-0.4) % Nucleat RBC Rel Count (0.00-0.1) % Eos # (Auto) (0-0.5) x10^3/uL Immature Gran # (Auto) (0.00-0.03) x10^3u/L Absolute Lymphs (auto) (1.0-4.6) x10^3/uL Absolute Monos (auto) (0.0-1.3) x10^3/uL Absolute Nucleated RBC (0.00-0.01) x10^3u/L Lymphocytes % (24.0-44.0) % Monocytes % (0.0-12.0) % Eosinophils % (0.00-5.0) % Basophils % (0.0-0.4) % Absolute Granulocytes (1.4-6.9) x10^3/uL Basophils # (0-0.4) x10^3/uL Sodium 136 (135-145) mmol/L Potassium 4.4 D (3.5-5.1) mmol/L Chloride 113 H (98-107) mmol/L Carbon Dioxide 20 L (22-30) mmol/L Anion Gap 6.7 (5-15) MEQ/L BUN 21 H (9-20) mg/dL Creatinine 1.52 H (0.66-1.25) mg/dL Estimated GFR 48.1 ML/MIN Glucose 95 (74-106) mg/dL Calcium 8.0 L (8.4-10.2) mg/dL Total Bilirubin 0.40 (0.2-1.3) mg/dL AST 20 (17-59) U/L ALT 13 (0-50) U/L Alkaline Phosphatase 92 (38-126) U/L Troponin I (0.000-0.033) ng/mL Serum Total Protein 6.9 (6.3-8.2) g/dL Albumin 2.5 L (3.5-5.0) g/dL - Radiology Exams Ordered Rad Exams-Entire Visit: Radiology Procedures Category Date Time Status CHEST 1 VIEW (PORTABLE) Stat Exams 11/22/23 11:36 Completed GALLBLADDER [US] Routine Exams 11/22/23 09:13 Completed - Procedures and Test Procedures and Tests throughout Hospitalization: Therapy Orders & Screens 11/20/23 03:39 ST Screen per Nursing Assess ONCE Comment: Protocol Order Physician Instructions: Greater than [address] Admission Screening Reason For Exam: Triggered on Admission Diagnosis: pancreatitis CVA/Dyshpagia/Aphasia: Yes Cognitive Deficits: No Dehydration/Nutrition Deficit: No Reflux: Yes Oral-Motor Difficulties: No Pneumonia: No Senior Care Resident: No Total Points: 8 11/22/23 08:14 EKG STAT Comment: EKG Reason: Other 11/22/23 09:09 EKG ONCE Comment: Diagnosis: "I cannot swallow" 11/22/23 09:10 Oxygen NASAL CANNULA 2 lpm Comment: Diagnosis: "I cannot swallow" Discharge Exam General Appearance: no apparent distress Neurologic Exam: alert, oriented x 3, cooperative Eye Exam: PERRL Ears, Nose, Throat Exam: normal ENT inspection Neck Exam: normal inspection Respiratory Exam: normal breath sounds, lungs clear Cardiovascular Exam: regular rate/rhythm, normal heart sounds Gastrointestinal/Abdomen Exam: soft, normal bowel sounds Male Genitalia Exam: deferred Rectal Exam: deferred Back Exam: normal inspection Extremity Exam: normal inspection Skin Exam: normal color Final Diagnosis/Problem List - Final Discharge Diagnosis/Problem (1) Esophageal obstruction due to food impaction Current Visit: Yes Status: Resolved Code(s): T18.128A - FOOD IN ESOPHAGUS CAUSING OTHER INJURY, INITIAL ENCOUNTER; W44.F3XA - FOOD ENTERING VIA NATURAL ORIFICE, INITIAL ENCOUNTER (2) Cholelithiasis Current Visit: Yes Status: Acute (3) Acute metabolic acidosis Current Visit: No Status: Resolved Code(s): E87.21 - ACUTE METABOLIC ACIDOSIS (4) Elevated amylase and lipase Current Visit: Yes Status: Resolved Code(s): R74.8 - ABNORMAL LEVELS OF OTHER SERUM ENZYMES (5) Chronic UTI Current Visit: Yes Status: Chronic Code(s): N39.0 - URINARY TRACT INFECTION, SITE NOT SPECIFIED (6) Chronic kidney disease, stage 3 Current Visit: Yes Status: Chronic Code(s): N18.30 - CHRONIC KIDNEY DISEASE, STAGE 3 UNSPECIFIED (7) Afib Current Visit: Yes Status: Chronic Code(s): I48.91 - UNSPECIFIED ATRIAL FIBRILLATION (8) BPH (benign prostatic hyperplasia) Current Visit: Yes Status: Chronic Code(s): N40.0 - BENIGN PROSTATIC HYPERPLASIA WITHOUT LOWER URINRY TRACT SYMP (9) Hypothyroidism Current Visit: No Status: Chronic Code(s): E03.9 - HYPOTHYROIDISM, UNSP ECIFIED (10) Atrial fibrillation with RVR Current Visit: Yes Status: Acute Code(s): I48.91 - UNSPECIFIED ATRIAL FIBRILLATION - Discharge Disposition: Home, Self-Care Condition: Stable Prescriptions: New Nystatin 5 ml PO QID 14 Days #240 ml PANTOPRAZOLE 40 mg Tablet [Protonix 40MG Tablet] 40 mg PO QAM 14 Days #14 tab Sucralfate 1000 mg/10 ml [Carafate SUSPENSION 1000 MG/10 ML] 1,000 mg PO BIDAC Diltiazem HCl 100 mg/100 ml [Cardizem Drip 100 mg/100 ml D5w] See Rx Instructions .ROUTE .COMPLEX PRN PRN Reason: HEART RATE/ A-FIB Continue Levothyroxine Sodium 100 Mcg [Synthroid 100 Mcg] 50 mcg PO DAILY Loratadine 10 mg PO DAILY Calcium Carbonate/Vitamin D3 [Calcium 600-Vit D3 400 Tablet] 1 tab PO DAILY Apixaban [Eliquis 5 mg Tablet] 5 mg PO BID Aspirin EC 81 mg [Ecotrin 81 mg] 81 mg PO DAILY Ascorbic Acid 1,000 mg PO DAILY Latanoprost [Xalatan] 1 drop OP DAILY Tamsulosin HCl 0.4 mg [Flomax 0.4 MG] 0.4 mg PO HS Metoprolol Tartrate 25 mg [Lopressor 25MG Tab] 12.5 mg PO BID Magnesium Oxide [Magnesium] 400 mg PO BID Smz/Tmp Ds Tablet [Bactrim Ds Tablet] 0.5 tab PO Q12H Potassium Chloride [Klor-Con] 20 meq PO DAILY Cholecalciferol (Vitamin D3) [Vitamin D3] 2,000 unit PO DAILY Instructions: Atrial Fibrillation (DC), Pancreatitis (DC), Pantoprazole Follow up with: JERONIMO SANTACRUZ [Primary Care Provider] - MANDI LOZANO MD [ACTIVE STAFF] - 11/23/23 11:10 am
--- NOTE | 2023-11-23 07:38 | PCM.DS ---
Discharge Summary Date of Admission: 11/20/23 02:28 Admitting Physician: SLICK MAE MD Consults: Consults on Case 11/20/23 02:24 Consult Surgery ROUTINE Primary Care Provider: JERONIMO SANTACRUZ Allergies Allergies No Known Drug Allergies Allergy (Verified 11/19/23 18:47) Hospital Summary - Vitals & Intake/Output Vital Signs: Vital Signs Temperature 98.1 F 11/23/23 06:59 Pulse Rate 74 11/23/23 06:59 Respiratory Rate 20 11/23/23 06:59 Blood Pressure 102/54 11/23/23 06:59 O2 Sat by Pulse Oximetry 96 11/23/23 07:29 Intake & Output: Intake & Output 11/20/23 11/21/23 11/22/23 11/23/23 11:59 11:59 11:59 11:59 Intake Total 0 2019 1240 580 Balance 0 2019 1240 580 Weight 56.4 kg 56.4 kg - Lab Result Diagrams: 11/23/23 04:15 11/23/23 04:15 Lab Results-Last 24 Hrs: Lab Results-Last 24 Hours 11/22/23 11/22/23 11/23/23 Range/Units 05:01 09:00 04:15 WBC 4.2 (4.0-10.5) x10^3/uL RBC 4.15 (4.1-5.6) x10^6/uL Hgb 11.9 L (12.5-18.0) g/dL Hct 37.5 L (42-50) % MCV 90.4 (78-100) fL MCH 28.7 (26-32) pg MCHC 31.7 L (32-36) g/dL RDW 15.4 H (11.5-14.0) % Plt Count 203 (150-450) x10^3/uL MPV 10.0 (7.5-11.0) fL Gran % 55.4 (36.0-66.0) % Immature Gran % (Auto) 0.2 (0.00-0.4) % Nucleat RBC Rel Count 0.0 (0.00-0.1) % Eos # (Auto) 0.38 (0-0.5) x10^3/uL Immature Gran # (Auto) 0.01 (0.00-0.03) x10^3u/L Absolute Lymphs (auto) 0.86 L (1.0-4.6) x10^3/uL Absolute Monos (auto) 0.58 (0.0-1.3) x10^3/uL Absolute Nucleated RBC 0.00 (0.00-0.01) x10^3u/L Lymphocytes % 20.7 L (24.0-44.0) % Monocytes % 14.0 H (0.0-12.0) % Eosinophils % 9.2 H (0.00-5.0) % Basophils % 0.5 (0.0-0.4) % Absolute Granulocytes 2.30 (1.4-6.9) x10^3/uL Basophils # 0.02 (0-0.4) x10^3/uL Sodium (135-145) mmol/L Potassium (3.5-5.1) mmol/L Chloride (98-107) mmol/L Carbon Dioxide (22-30) mmol/L Anion Gap (5-15) MEQ/L BUN (9-20) mg/dL Creatinine (0.66-1.25) mg/dL Estimated GFR ML/MIN Glucose (74-106) mg/dL Calcium (8.4-10.2) mg/dL Total Bilirubin (0.2-1.3) mg/dL AST (17-59) U/L ALT (0-50) U/L Alkaline Phosphatase (38-126) U/L Troponin I < 0.012 (0.000-0.033) ng/mL Serum Total Protein (6.3-8.2) g/dL Albumin (3.5-5.0) g/dL 11/23/23 Range/Units 04:15 WBC (4.0-10.5) x10^3/uL RBC (4.1-5.6) x10^6/uL Hgb (12.5-18.0) g/dL Hct (42-50) % MCV (78-100) fL MCH (26-32) pg MCHC (32-36) g/dL RDW (11.5-14.0) % Plt Count (150-450) x10^3/uL MPV (7.5-11.0) fL Gran % (36.0-66.0) % Immature Gran % (Auto) (0.00-0.4) % Nucleat RBC Rel Count (0.00-0.1) % Eos # (Auto) (0-0.5) x10^3/uL Immature Gran # (Auto) (0.00-0.03) x10^3u/L Absolute Lymphs (auto) (1.0-4.6) x10^3/uL Absolute Monos (auto) (0.0-1.3) x10^3/uL Absolute Nucleated RBC (0.00-0.01) x10^3u/L Lymphocytes % (24.0-44.0) % Monocytes % (0.0-12.0) % Eosinophils % (0.00-5.0) % Basophils % (0.0-0.4) % Absolute Granulocytes (1.4-6.9) x10^3/uL Basophils # (0-0.4) x10^3/uL Sodium 136 (135-145) mmol/L Potassium 4.4 D (3.5-5.1) mmol/L Chloride 113 H (98-107) mmol/L Carbon Dioxide 20 L (22-30) mmol/L Anion Gap 6.7 (5-15) MEQ/L BUN 21 H (9-20) mg/dL Creatinine 1.52 H (0.66-1.25) mg/dL Estimated GFR 48.1 ML/MIN Glucose 95 (74-106) mg/dL Calcium 8.0 L (8.4-10.2) mg/dL Total Bilirubin 0.40 (0.2-1.3) mg/dL AST 20 (17-59) U/L ALT 13 (0-50) U/L Alkaline Phosphatase 92 (38-126) U/L Troponin I (0.000-0.033) ng/mL Serum Total Protein 6.9 (6.3-8.2) g/dL Albumin 2.5 L (3.5-5.0) g/dL - Radiology Exams Ordered Rad Exams-Entire Visit: Radiology Procedures Category Date Time Status CHEST 1 VIEW (PORTABLE) Stat Exams 11/22/23 11:36 Completed GALLBLADDER [US] Routine Exams 11/22/23 09:13 Completed - Procedures and Test Procedures and Tests throughout Hospitalization: Therapy Orders & Screens 11/20/23 03:39 ST Screen per Nursing Assess ONCE Comment: Protocol Order Physician Instructions: Greater than [address] Admission Screening Reason For Exam: Triggered on Admission Diagnosis: pancreatitis CVA/Dyshpagia/Aphasia: Yes Cognitive Deficits: No Dehydration/Nutrition Deficit: No Reflux: Yes Oral-Motor Difficulties: No Pneumonia: No Correction Resident: No Total Points: 8 11/22/23 08:14 EKG STAT Comment: EKG Reason: Other 11/22/23 09:09 EKG ONCE Comment: Diagnosis: "I cannot swallow" 11/22/23 09:10 Oxygen NASAL CANNULA 2 lpm Comment: Diagnosis: "I cannot swallow" Final Diagnosis/Problem List - Final Discharge Diagnosis/Problem (1) Esophageal obstruction due to food impaction Current Visit: Yes Status: Resolved Code(s): T18.128A - FOOD IN ESOPHAGUS CAUSING OTHER INJURY, INITIAL ENCOUNTER; W44.F3XA - FOOD ENTERING VIA NATURAL ORIFICE, INITIAL ENCOUNTER (2) Cholelithiasis Current Visit: Yes Status: Acute (3) Acute metabolic acidosis Current Visit: No Status: Resolved Code(s): E87.21 - ACUTE METABOLIC ACIDOSIS (4) Elevated amylase and lipase Current Visit: Yes Status: Resolved Code(s): R74.8 - ABNORMAL LEVELS OF OTHER SERUM ENZYMES (5) Chronic UTI Current Visit: Yes Status: Chronic Code(s): N39.0 - URINARY TRACT INFECTION, SITE NOT SPECIFIED (6) Chronic kidney disease, stage 3 Current Visit: Yes Status: Chronic Code(s): N18.30 - CHRONIC KIDNEY DISEASE, STAGE 3 UNSPECIFIED (7) Afib Current Visit: Yes Status: Chronic Code(s): I48.91 - UNSPECIFIED ATRIAL FIBRILLATION (8) BPH (benign prostatic hyperplasia) Current Visit: Yes Status: Chronic Code(s): N40.0 - BENIGN PROSTATIC HYPERPLASIA WITHOUT LOWER URINRY TRACT SYMP (9) Hypothyroidism Current Visit: No Status: Chronic Code(s): E03.9 - HYPOTHYROIDISM, UNSPECIFIED (10) Atrial fibrillation with RVR Current Visit: Yes Status: Acute Code(s): I48.91 - UNSPECIFIED ATRIAL FIBRILLATION - Discharge Discharge Date: 11/23/23 Disposition: Home, Self-Care Condition: Stable Prescriptions: New Nystatin 5 ml PO QID 14 Days #240 ml PANTOPRAZOLE 40 mg Tablet [Protonix 40MG Tablet] 40 mg PO QAM 14 Days #14 tab Sucralfate 1000 mg/10 ml [Carafate SUSPENSION 1000 MG/10 ML] 1,000 mg PO BIDAC Diltiazem HCl 100 mg/100 ml [Cardizem Drip 100 mg/100 ml D5w] See Rx Instructions .ROUTE .COMPLEX PRN PRN Reason: HEART RATE/ A-FIB Continue Levothyroxine Sodium 100 Mcg [Synthroid 100 Mcg] 50 mcg PO DAILY Loratadine 10 mg PO DAILY Calcium Carbonate/Vitamin D3 [Calcium 600-Vit D3 400 Tablet] 1 tab PO DAILY Apixaban [Eliquis 5 mg Tablet] 5 mg PO BID Aspirin EC 81 mg [Ecotrin 81 mg] 81 mg PO DAILY Ascorbic Acid 1,000 mg PO DAILY Latanoprost [Xalatan] 1 drop OP DAILY Tamsulosin HCl 0.4 mg [Flomax 0.4 MG] 0.4 mg PO HS Metoprolol Tartrate 25 mg [Lopressor 25MG Tab] 12.5 mg PO BID Magnesium Oxide [Magnesium] 400 mg PO BID Smz/Tmp Ds Tablet [Bactrim Ds Tablet] 0.5 tab PO Q12H Potassium Chloride [Klor-Con] 20 meq PO DAILY Cholecalciferol (Vitamin D3) [Vitamin D3] 2,000 unit PO DAILY Instructions: Atrial Fibrillation (DC), Pancreatitis (DC), Pantoprazole Follow up with: JERONIMO SANTACRUZ [Primary Care Provider] - MANDI LOZANO MD [ACTIVE STAFF] - 11/23/23 11:10 am
[2023-11-23 08:10] VITALS: PULSE 67
--- NOTE | 2023-11-23 09:21 | PCM.DS ---
Discharge Summary Date of Admission: 11/20/23 02:28 Date of Discharge: 11/23/23 Admitting Physician: SLICK MAE MD Consults: Consults on Case 11/20/23 02:24 Consult Surgery ROUTINE Primary Care Provider: JERONIMO SANTACRUZ Allergies Allergies No Known Drug Allergies Allergy (Verified 11/19/23 18:47) Hospital Summary - Hospital Course Hospital Course: 73 year old male admitted 11/20/23 for esophageal obstruction after experiencing a sensation that his food was stuck in his lower esophagus after consuming a meal of ribs and a deviled egg. Patient did develop severe vomiting with any further attempts to eat/drink. CT imaging noted that thoracic esophagus is distended with hypodense fluid and suspicious circuferential soft tissue lesion ([id number])at gastroesophageal junction. CT abdomen with cholelthiasis. Surgery consulted and EGD performed with foreign body removal. Additional findings of esophagitis, duodenitis, and gastritis noted. Patient started on Nystatin which he will remain on for two weeks as well as carafate and protonix. Surgery also recommends cholecystecomy as OP. Lipase initially elevated with no clinical indication of pancreatitis. Levels are now WNL. Patient is schedule for GB US today per surgery and developed AFIB RVR. Spoke with patient's director adult Dr. Estrada. Cardizem drip initiated with metoprolol home dose recommended. Patient has converted overnight, drip d/cd. GB US showing cholelthiasis. Plan for surgery appt today as OP> will continue recommended medications on discharge. Patient to follow up with Sean in one week. Discharge Note Latest Assessment & Plan 1) Esophageal obstruction due to food impaction Current Visit: Yes Status: Resolved Assessment & Plan: -Prior episode that did not require intervention -CT imaging reviewed with GE junction lesion noted, EGD recommended -Surgery consulted, EGD performed with foreign body removal, additional findings of esophagitis, doudenitis, and gastritis, Nystatin started (2 week regimen), Protonix and carafate- biopsies pending -Per surgery pt to remain on CLD -hold eliquis -Home meds resumed 11/21: -CXR pending Code(s): T18.128A - FOOD IN ESOPHAGUS CAUSING OTHER INJURY, INITIAL ENCOUNTER; W44.F3XA - FOOD ENTERING VIA NATURAL ORIFICE, INITIAL ENCOUNTER (2) Cholelithiasis Current Visit: Yes Status: Acute Assessment & Plan: -Surgery consulted with recs for cholecystecomy -Eliquis on hold 11/21: -GB US planned for today per surgery, plan for OP cholecystectomy, eliquis resumed (3) Acute metabolic acidosis Current Visit: No Status: Acute Assessment & Plan: -Most likely secondary to vomiting -C02 levels improving, bicarb drip d/cd, oral bicarb initiated -Continue to monitor BMP 11/21: resolved on 11/20 Code(s): E87.21 - ACUTE METABOLIC ACIDOSIS (4) Elevated amylase and lipase Current Visit: Yes Status: Acute Assessment & Plan: patient does not have any abdominal pain, or any nausea except for when he has to expel the obstructed food from the upper esophagus. Clinically unlikely to be pancreatitis. Repeat lipase now WNL Code(s): R74.8 - ABNORMAL LEVELS OF OTHER SERUM ENZYMES (5) Chronic UTI Current Visit: Yes Status: Acute Assessment & Plan: patient was started on low-dose daily Bactrim for suppression -continue Code(s): N39.0 - URINARY TRACT INFECTION, SITE NOT SPECIFIED (6) Chronic kidney disease, stage 3 Current Visit: Yes Status: Acute Assessment & Plan: -at baseline creat -Monitor renal/lytes daily while IP, avoid nephrotoxic meds/NSAIDs Code(s): N18.30 - CHRONIC KIDNEY DISEASE, STAGE 3 UNSPECIFIED (7) Afib Current Visit: Yes Status: Acute Assessment & Plan: paroxysmal, currently in sinus rhythm. Resume home metoprolol 12.5 BID -Eliquis on hold for now per surgery 11/21: -Pt with AFIB RVR HR in the 150's, cardizem bolus/drip initiated, spoke with Dr. Estrada- pts director adult advised drip/metoprolol, if unable to convert transfer to regional -Eliquis resumed -MG/TSH -Records reviewed with recent stress test on 11/10/23 -norm 11/22: -converted, NS -Per Dr. Estrada, resume home meds, will follow up in one week I spent 35 minutes [id number] with the patient on the day of discharge performing discharge exam, discussing hospital stay and discharge instructions with patient and caregivers, preparation of discharge records, prescriptions & referral forms and addressing any questions/concerns the patient had as documented above. - Vitals & Intake/Output Vital Signs: Vital Signs Temperature 98.1 F 11/23/23 06:59 Pulse Rate 67 11/23/23 08:00 Respiratory Rate 20 11/23/23 07:56 Blood Pressure 102/54 11/23/23 06:59 O2 Sat by Pulse Oximetry 96 11/23/23 07:29 Intake & Output: Intake & Output 11/20/23 11/21/23 11/22/23 11/23/23 11:59 11:59 11:59 11:59 Intake Total 0 2019 1240 580 Balance 0 2019 1239 580 Weight 56.4 kg 56.4 kg - Lab Result Diagrams: 11/23/23 04:15 11/23/23 04:15 Lab Results-Last 24 Hrs: Lab Results-Last 24 Hours 11/22/23 11/23/23 11/23/23 Range/Units 09:00 04:15 04:15 WBC 4.2 (4.0-10.5) x10^3/uL RBC 4.15 (4.1-5.6) x10^6/uL Hgb 11.9 L (12.5-18.0) g/dL Hct 37.5 L (42-50) % MCV 90.4 (78-100) fL MCH 28.7 (26-32) pg MCHC 31.7 L (32-36) g/dL RDW 15.4 H (11.5-14.0) % Plt Count 203 (150-450) x10^3/uL MPV 10.0 (7.5-11.0) fL Gran % 55.4 (36.0-66.0) % Immature Gran % (Auto) 0.2 (0.00-0.4) % Nucleat RBC Rel Count 0.0 (0.00-0.1) % Eos # (Auto) 0.38 (0-0.5) x10^3/uL Immature Gran # (Auto) 0.01 (0.00-0.03) x10^3u/L Absolute Lymphs (auto) 0.86 L (1.0-4.6) x10^3/uL Absolute Monos (auto) 0.58 (0.0-1.3) x10^3/uL Absolute Nucleated RBC 0.00 (0.00-0.01) x10^3u/L Lymphocytes % 20.7 L (24.0-44.0) % Monocytes % 14.0 H (0.0-12.0) % Eosinophils % 9.2 H (0.00-5.0) % Basophils % 0.5 (0.0-0.4) % Absolute Granulocytes 2.30 (1.4-6.9) x10^3/uL Basophils # 0.02 (0-0.4) x10^3/uL Sodium 136 (135-145) mmol/L Potassium 4.4 D (3.5-5.1) mmol/L Chloride 113 H (98-107) mmol/L Carbon Dioxide 20 L (22-30) mmol/L Anion Gap 6.7 (5-15) MEQ/L BUN 21 H (9-20) mg/dL Creatinine 1.52 H (0.66-1.25) mg/dL Estimated GFR 48.1 ML/MIN Glucose 95 (74-106) mg/dL Calcium 8.0 L (8.4-10.2) mg/dL Total Bilirubin 0.40 (0.2-1.3) mg/dL AST 20 (17-59) U/L ALT 13 (0-50) U/L Alkaline Phosphatase 92 (38-126) U/L Troponin I < 0.012 (0.000-0.033) ng/mL Serum Total Protein 6.9 (6.3-8.2) g/dL Albumin 2.5 L (3.5-5.0) g/dL - Radiology Exams Ordered Rad Exams-Entire Visit: Radiology Procedures Category Date Time Status CHEST 1 VIEW (PORTABLE) Stat Exams 11/22/23 11:36 Completed GALLBLADDER [US] Routine Exams 11/22/23 09:13 Completed - Procedures and Test Procedures and Tests throughout Hospitalization: Therapy Orders & Screens 11/20/23 03:39 ST Screen per Nursing Assess ONCE Comment: Protocol Order Physician Instructions: Greater than [address] Admission Screening Reason For Exam: Triggered on Admission Diagnosis: pancreatitis CVA/Dyshpagia/Aphasia: Yes Cognitive Deficits: No Dehydration/Nutrition Deficit: No Reflux: Yes Oral-Motor Difficulties: No Pneumonia: No Penitentiary Resident: No Total Points: 8 11/22/23 08:14 EKG STAT Comment: EKG Reason: Other 11/22/23 09:09 EKG ONCE Comment: Diagnosis: "I cannot swallow" 11/22/23 09:10 Oxygen NASAL CANNULA 2 lpm Comment: Diagnosis: "I cannot swallow" Final Diagnosis/Problem List - Final Discharge Diagnosis/Problem (1) Esophageal obstruction due to food impaction Current Visit: Yes Status: Resolved Code(s): T18.128A - FOOD IN ESOPHAGUS CAUSING OTHER INJURY, INITIAL ENCOUNTER; W44.F3XA - FOOD ENTERING VIA NATURAL ORIFICE, INITIAL ENCOUNTER (2) Cholelithiasis Current Visit: Yes Status: Acute (3) Acute metabolic acidosis Current Visit: No Status: Resolved Code(s): E87.21 - ACUTE METABOLIC ACIDOSIS (4) Elevated amylase and lipase Current Visit: Yes Status: Resolved Code(s): R74.8 - ABNORMAL LEVELS OF OTHER SERUM ENZYMES (5) Chronic UTI Current Visit: Yes Status: Chronic Code(s): N39.0 - URINARY TRACT INFECTION, SITE NOT SPECIFIED (6) Chronic kidney disease, stage 3 Current Visit: Yes Status: Chronic Code(s): N18.30 - CHRONIC KIDNEY DISEASE, STAGE 3 UNSPECIFIED (7) Afib Current Visit: Yes Status: Chronic Code(s): I48.91 - UNSPECIFIED ATRIAL FIBRILLATION (8) BPH (benign prostatic hyperplasia) Current Visit: Yes Status: Chronic Code(s): N40.0 - BENIGN PROSTATIC HYPERPLASIA WITHOUT LOWER URINRY TRACT SYMP (9) Hypothyroidism Current Visit: No Status: Chronic Code(s): E03.9 - HYPOTHYROIDISM, UNSPECIFIED (10) Atrial fibrillation with RVR Current Visit: Yes Status: Acute Code(s): I48.91 - UNSPECIFIED ATRIAL FIBRILLATION - Discharge Disposition: Home, Self-Care Condition: Stable Prescriptions: New Nystatin 5 ml PO QID 14 Days #280 ml PANTOPRAZOLE 40 mg Tablet [Protonix 40MG Tablet] 40 mg PO QAM 14 Days #14 tab Sucralfate 10 ml PO BIDAC 14 Days #280 ml Continue Levothyroxine Sodium 100 Mcg [Synthroid 100 Mcg] 50 mcg PO DAILY Loratadine 10 mg PO DAILY Calcium Carbonate/Vitamin D3 [Calcium 600-Vit D3 400 Tablet] 1 tab PO DAILY Apixaban [Eliquis 5 mg Tablet] 5 mg PO BID Aspirin EC 81 mg [Ecotrin 81 mg] 81 mg PO DAILY Ascorbic Acid 1,000 mg PO DAILY Latanoprost [Xalatan] 1 drop OP DAILY Tamsulosin HCl 0.4 mg [Flomax 0.4 MG] 0.4 mg PO HS Metoprolol Tartrate 25 mg [Lopressor 25MG Tab] 12.5 mg PO BID Magnesium Oxide [Magnesium] 400 mg PO BID Smz/Tmp Ds Tablet [Bactrim Ds Tablet] 0.5 tab PO Q12H Potassium Chloride [Klor-Con] 20 meq PO DAILY Cholecalciferol (Vitamin D3) [Vitamin D3] 2,000 unit PO DAILY Instructions: Atrial Fibrillation (DC), Pancreatitis (DC), Pantoprazole Follow up with: FANNY ESTRADA [CONSULTING PHYSICIAN] - 11/29/23 4:15 pm JERONIMO SANTACRUZ [Primary Care Provider] - 11/24/23 9:45 am MANDI LOZANO MD [ACTIVE STAFF] - 11/23/23 11:10 am
[2023-11-23 10:13] VITALS: O2SAT 91
--- NOTE | 2023-11-23 10:41 | CONS ---
CONSULT DATE: 11/20/2023 HISTORY: This is a 73-year-old gentleman who presented to [facility] after eating ribs and eggs and then feeling that he was choking. He tried to drink some water and everything was coming up. He did throw up and felt a little better and then tried to drink a little water and continued to spit up. He felt like nothing was going down. He did have a similar episode approximately two months ago but he was able to get the food down and then he resolved on his own without seeking medical attention. He said outside of this, he really was not having any difficulty. He did have a bleeding ulcer in his stomach approximately 10 to 15 years ago in the past. The patient has had multiple laboratory studies. Interestingly, his amylase and lipase were slightly elevated yesterday and today they are worse. He had a CT scan that showed gallstones. It also showed an irregularity of his esophagus where there is thickening and then dilation. He personally does not have any history of pancreatitis. Of note, he is on Eliquis for atrial fibrillation and he took this Monday morning, which was yesterday morning and has not had any since. PAST MEDICAL HISTORY: Atrial fibrillation. PAST SURGICAL HISTORY: Multiple hernia repairs. MEDICATIONS: The remainder of the patient's medications and allergies are printed in the patient's medical chart and in computer record and I have personally reviewed these. I have also reviewed his in hospital medications and he is NPO on fluids. ALLERGIES: NKDA. SOCIAL HISTORY: A very distant use of tobacco. No current tobacco use. No current alcohol use. He quit both of these when he was much younger. FAMILY HISTORY: Most significant for pancreatic cancer. Mom had pancreatic cancer, younger sister had pancreatic cancer and another sister had a mass in her stomach but this was not cancer. IMPRESSION AND PLAN: He does appear to still have the foreign body stuck in his esophagus and I suspect this is food from when he ate ribs and eggs and then started having symptoms. We have discussed both EGD as well as discussed that he may also have in addition gallstone pancreatitis and may need to have his gallbladder out. I think at this time we really should only be doing the EGD to attempt to remove the food bolus and then check out what is going on with his esophagus since it does look abnormal on CT scan. The patient understands all the risks, benefits and alternatives. I also stressed that there is also a chance that I cannot remove the food bolus or that he can have a complication such as bleeding or perforation that these risks are not limited to these. If we do have any concerning findings such as this, there will be a chance that he would need to be transferred and he understands this and he would like to proceed. I have also talked with anesthesia and we will plan to have general anesthesia and the patient is agreeable this as well. The patient will be taken back to the operating room momentarily. He is in stable condition. He will remain NPO with IV fluids until the procedure.
--- NOTE | 2023-11-23 11:09 | OP ---
PROCEDURE DATE/TIME: 11/20/2023 1543 PREOPERATIVE DIAGNOSES: 1) Esophageal foreign body. 2) Abnormal CT scan of the esophagus. POSTOPERATIVE DIAGNOSES: 1) Foreign body of the distal esophagus. 2) Esophagitis. 3) Gastritis. 4) Duodenitis. 5) Gastric polyp. PROCEDURE: EGD with removal of distal esophageal foreign body, cold forceps biopsy and hot snare polypectomy. PROCEDURE PERFORMED BY: Idalia Nicholson M.D. ESTIMATED BLOOD LOSS: Minimal. ANESTHESIA: General endotracheal tube. COMPLICATIONS: None. SPECIMENS: 1) Esophageal foreign body. 2) Gastric antrum gastric polyp distal esophagus, mid esophagus. HISTORY: This is a 73-year-old gentleman who presented with an esophageal foreign body and abnormalities of his esophagus on CT scan. He understands the risks, benefits, alternatives to EGD. I have completed a consultation note and discussed the procedure with him. All of his questions have been answered. He would like to proceed. DESCRIPTION OF PROCEDURE: He was brought back to the operative suite. He was intubated with anesthesia and was very stable. We then turned him on his left side and did a complete time out and then I gently inserted the scope into the mouth, oropharynx, down into the esophagus and immediately saw in the distal esophagus what appeared to be a chunk of meat. I initially tried to grasp this the forceps but this just went right through the food bolus and so I then took a snare and wrapped this around the upper portion of the food bolus and very gently removed the food bolus while holding onto it with the snare to fully evacuate this. On inspection, it does look like it a chunk of meat. We then replaced the scope. The mucosa is intact. It does look like he has some erosion of the distal esophagus that is superficial from the food bolus being stuck. He did have dilation of his proximal esophagus from the food bolus on his CT scan and this is all consistent with having the food bolus. I see inflammation but I do not see any significant mass of concern. We then entered the stomach. Again, he has gastritis throughout his stomach. He had some polyps as well one appears to have bled and there is a small amount of blood in his stomach and he also has duodenitis which is more mild. I do not see any masses suggestive of an upper GI cancer up in the portion that we are readily able to visualize in his duodenum, which is proximal second portion. We then withdrew the scope back into the stomach. I took biopsies in the antrum. I removed the gastric polyp with hot snare in its entirety and retrieved it this is hemostatic. I then took small biopsies in the distal esophagus where he does have what looks like clear inflammation and as well in the mid esophagus. He had some whitish-yellow discharge throughout his esophagus that may be Debra. It looked slightly like Debra but not as severe as most Debra. In the esophagus, I did take biopsies to test for this and I did put him on Nystatin as well as proton pump inhibitor and Carafate to help treat all of the findings and we will await our final biopsy. I discussed with his nurses all of his final results so that they can discuss this with him as well and I did also talk to him in the postoperative area and he does feel better with the bolus being removed. The patient tolerated this procedure very well. There were no immediate complications. I did not find a clear stricture or mass in the distal esophagus but I did find inflammation and I suspect that this is likely why things are getting stuck here. I do think that he will likely benefit from another EGD within the next year to resurvey the distal esophagus but sooner should he continue to have symptoms despite treatment.
== END 2023-11-23 09:35 | disposition home or self-care (01) ==
LOC: ED 18:16 → MED SURG 11-20 02:28
PROVIDERS: ADMIT Internal Medicine; ATTEND Internal Medicine
DX: T18.128A Food in esophagus causing other injury, initial encounter (principal); W44.F3XA Food entering into or through a natural orifice, initial encounter; K80.20 Calculus of gallbladder without cholecystitis without obstruction; E87.21 Acute metabolic acidosis; R74.8 Abnormal levels of other serum enzymes; N39.0 Urinary tract infection, site not specified; N18.30 Chronic kidney disease, stage 3 unspecified; I48.91 Unspecified atrial fibrillation; N40.0 Benign prostatic hyperplasia without lower urinary tract symptoms; E03.9 Hypothyroidism, unspecified; Z79.01 Long term (current) use of anticoagulants; Z79.899 Other long term (current) drug therapy; K20.90 Esophagitis, unspecified without bleeding; K29.70 Gastritis, unspecified, without bleeding; K29.80 Duodenitis without bleeding; K31.7 Polyp of stomach and duodenum
CPT/HCPCS: 00731; 36415; 43239; 43247; 43250; 71045; 71250; 74176; 76705; 80048; 80053; 82150; 82248; 83690; 84484; 85025; 93005; 93268; 94760; 96376; 99100; 99285; G0378; Q3014; J1100; J2270; J2371; J2405; J2704; J3010; A9270-GY

== ENCOUNTER 2025-05-18 13:20 | Emergency (ER) | payer MEDICARE, OTHER ==
[2025-05-18 14:11] VITALS: PULSE 71; RESP 20; TEMP 97.6
--- NOTE | 2025-05-18 14:20 | ERPHSYRPT ---
- History of Present Illness Physician History: Blood on penis, patient has an indwelling Rodriguez catheter and the 's been taking care of it, she has noticed some crusty blood at the meatus, was concerned he may have infection, the Rodriguez catheter is draining per the , Rodriguez catheter is placed due to urinary retention Timing/Duration: yesterday Activites at Onset: none Onset Location: urethral Pain Radiation: none Severity of Pain-Max: none Severity of Pain-Current: none Modifying Factors: Improves With: nothing Associated Symptoms: denies symptoms Allergies/Adverse Reactions: No Known Drug Allergies Allergy (Verified 11/19/23 18:47) Home Medications: Levothyroxine Sodium 100 Mcg [Synthroid 100 Mcg] 50 mcg PO DAILY 01/21/20 [History] Loratadine 10 mg PO DAILY 01/21/20 [History] Calcium Carbonate/Vitamin D3 [Calcium 600-Vit D3 400 Tablet] 1 tab PO DAILY 01/10/21 [History] Apixaban [Eliquis 5 mg Tablet] 5 mg PO BID 11/15/21 [History] Ascorbic Acid 1,000 mg PO DAILY 10/03/23 [History] Aspirin EC 81 mg [Ecotrin 81 mg] 81 mg PO DAILY 10/03/23 [History] Latanoprost [Xalatan] 1 drop OP DAILY 10/03/23 [History] Tamsulosin HCl 0.4 mg [Flomax 0.4 MG] 0.4 mg PO HS 10/03/23 [History] Cholecalciferol (Vitamin D3) [Vitamin D3] 2,000 unit PO DAILY 11/19/23 [History] Magnesium Oxide [Magnesium] 400 mg PO BID 11/19/23 [History] Metoprolol Tartrate 25 mg [Lopressor 25MG Tab] 12.5 mg PO BID 11/19/23 [History] Potassium Chloride [Klor-Con] 20 meq PO DAILY 11/19/23 [History] Hx Tetanus, Diphtheria Vaccination/Date Given: No Hx Influenza Vaccination/Date Given: Yes Hx Pneumococcal Vaccination/Date Given: Yes Travel Risk - Emerging Infectious Disease Are you exhibiting symptoms associated with any current EIDs: No - Past Medical History Pertinent Past Medical History: Yes Neurological History: Other ENT History: No Pertinent History Cardiac History: Arrhythmia, Other Respiratory History: Other Endocrine Medical History: Hypothyroidism, Other Musculoskeletal History: Osteoarthritis GI Medical History: No Pertinent History History: Renal Disease Psycho-Social History: No Pertinent History Male Reproductive Disorders: No Pertinent History Other Medical History: DX WITH RECENT HOSPITALIZATIONS: A-FIB WITH RVR, HYPOVOLEMIC SHOCK, HYPOXIC RESPIRATORY FAILURE, PNEUMONIA, HYPOTENSION, MULTIPLE MYELOMA, DYSPAGIA, THROMBOCYTOPENIA, ACUTRTE KIDNEY INJURY AND HYPOKALEMIA. C HRONIC PROBLEM LIST FROM RECENT HOSPITALIZATION - AFIB, BPH, DYSPHAGIA, HYPERTENSION, HYPOMAGNESEMIA, HYPOTHRYOIDISM, MELANOMA. PRIOR LEVEL OF FUNCTION - PER SPOUSE PRIOR TO HOSPITALIZATION WAS AMBULATING INDEP ON ALL SURFACES, TAKING DOG FOR WALK 3X DAY AND INDEP WITH ADLS/IADLS. - Past Surgical History Past Surgical History: Yes Neuro Surgical History: No Pertinent History Cardiac: No Pertinent History Respiratory: No Pertinent History Gastrointestinal: No Pertinent History Genitourinary: No Pertinent History Musculoskeletal: No Pertinent History Male Surgical History: No Pertinent History Other Surgical History: hernia x 3, hemorriods Significant Family History: no pertinent family hx - Social History Smoking Status: Former smoker Exposure to second hand smoke: No Drug Use: none - Social Determinants of Health Will the patient participate in the screening: Yes Do you worry about a steady place to live?: No In the past 12 months,have you had to go without utilities?: No Transportation Issues: No Has anyone in your support network made you feel unsafe?: No Have you or anyone in your house had to go w/o enough food: No - Nursing Vital Signs Nursing Vital Signs: Initial Vital Signs Temperature 97.6 F 05/18/25 14:06 Pulse Rate 71 05/18/25 14:06 Respiratory Rate 20 05/18/25 14:06 Blood Pressure 104/74 05/18/25 14:06 Pain Scale Pain Intensity 4 - Physical Exam General Appearance: no apparent distress, alert Eye Exam: PERRL/EOMI Ears, Nose, Throat Exam: pharynx normal, moist mucous membranes Neck Exam: normal inspection, supple Respiratory Exam: normal breath sounds, lungs clear Cardiovascular Exam: regular rate/rhythm, No edema Gastrointestinal/Abdomen Exam: soft, No tenderness Back Exam: normal inspection, No CVA tenderness Extremity Exam: normal inspection, normal range of motion, No pedal edema Neurologic Exam: alert, oriented x 3, cooperative, sensation nml, No motor deficits Skin Exam: normal color, warm, dry, No rash SpO2 Interpretation: normal Comments: Indwelling Rodriguez catheter, there is no active bleeding at the meatus, there is no discharge at the meatus, there appears to be urine in the Rodriguez bag Ordered Tests: Active Orders 24 hr Category Date Time Status CULTURE,URINE Stat Lab 05/18/25 14:31 Received UA W/RFX UR CULTURE Stat Lab 05/18/25 14:31 Received - Progress Progress Note: 05/18/25 15:46 Urine culture obtained, patient replaced on cefadroxil and follow-up to urology as scheduled - Departure Departure Disposition: Home Clinical Impression: Rodriguez catheter problem Qualifiers: Encounter type: initial encounter Qualified Code(s): T83.9XXA - Unspecified complication of genitourinary prosthetic device, implant and graft, initial encounter Condition: Stable Critical Care Time: No Referrals: DANAE TINEO NP [Primary Care Provider, UNKNOWN] - Follow up/PCP as directed Instructions: Blood in the urine (hematuria) in adults Prescriptions: cefaDROXiL [Cefadroxil] 500 mg PO BID #20 cap
[2025-05-18 15:52] LABS: Glucose, Urine Negative (Negative); Protein,Urine Dip Negative (Negative)
[2025-05-18] MEDS ORDERED: KEFLEX 500 MG ONE (15:55)
[2025-05-18] MEDS: KEFLEX 500 MG PO ONE (15:56)
[2025-05-18 16:03] VITALS: BP 130/58; O2SAT 95
== END 2025-05-18 16:08 | disposition home or self-care (01) ==
LOC: ED 13:20
DX: T83.9XXA Unspecified complication of genitourinary prosthetic device, implant and graft, initial encounter (principal); Z79.01 Long term (current) use of anticoagulants; Z79.899 Other long term (current) drug therapy